=== PATIENT | female | born 1965 | race Caucasian/White ===

== ENCOUNTER 2018-09-12 07:03 | Inpatient (IN) ==
--- NOTE | 2018-08-28 14:26 | PAT Medication Instructions ---
Medication Instructions Date of Service August 28, 2018 Home Medications albuterol sulfate [Ventolin HFA] 2 puff INHALATION Q6H PRN aripiprazole [Abilify] 5 mg PO QAM bupropion HCl [Wellbutrin SR] 400 mg PO QAM calcium carbonate [Tums] 200 mg PO DAILY PRN dextroamphetamine-amphetamine 20 mg PO BID multivitamin 1 tab PO QAM nicotine 1 patch TRANSDERMAL DAILY venlafaxine [Effexor XR] 150 mg PO QAM metoprolol tartrate 25 mg PO BID Continue as directed nicotine 1 patch TRANSDERMAL DAILY DO NOT take the morning of surgery calcium carbonate [Tums] 200 mg PO DAILY PRN dextroamphetamine-amphetamine 20 mg PO BID multivitamin 1 tab PO QAM Take morning of surgery With a small sip of water, OTHERWISE NOTHING TO EAT OR DRINK AFTER MIDNIGHT: albuterol sulfate [Ventolin HFA] 2 puff INHALATION Q6H PRN (use if needed; please bring with you to hospital day of surgery if possible) aripiprazole [Abilify] 5 mg PO QAM bupropion HCl [Wellbutrin SR] 400 mg PO QAM venlafaxine [Effexor XR] 150 mg PO QAM metoprolol tartrate 25 mg PO BID Take evening before surgery albuterol sulfate [Ventolin HFA] 2 puff INHALATION Q6H PRN (if needed) calcium carbonate [Tums] 200 mg PO DAILY PRN (if needed) dextroamphetamine-amphetamine 20 mg PO BID metoprolol tartrate 25 mg PO BID Other Notes If you have any questions please call us at [phone] or [phone] or [phone] or [phone]
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
[2018-08-31 13:06] LABS: Basophils # (auto) 0.07 K/uL (0-0.2); Basophils % (auto) 1.1 %; Eosinophils # (auto) 0.29 K/uL (0-0.5); Eosinophils % (auto) 4.6 %; Hematocrit (blood only) 42.9 % (37-47); Hemoglobin 13.8 g/dL (12.0-16.0); Immature Granulocytes # (auto) 0.02 K/uL (0.00-0.02); Immature Granulocytes % (auto) 0.3 %; Lymphocytes # (auto) 1.76 K/uL (1.2-3.4); Mean Corpuscular Hgb Conc 32.2 g/dL (32-36); Mean Corpuscular Volume 101.9 fL (80-100); Mean Platelet Volume 8.5 fL (7.4-10.4); Monocytes # (auto) 0.77 K/uL (0.11-0.59); Monocytes % (auto) 12.3 %; Neutrophils # (auto) 3.37 K/uL (1.4-6.5); Neutrophils % (auto) 53.7 %; Platelet Count 355 K/uL (130-400); RDW Coefficient of Variation 21.4 % (11.5-14.5); RDW Standard Deviation 79.8 fL (36.4-46.3); Red Blood Count 4.21 M/uL (4.2-5.4); White Blood Count 6.28 K/uL (4.8-10.8)
[2018-08-31 13:10] LABS: Appearance Urine Clear (Clear); Bacteria Urine Automated Negative (Negative); Bilirubin Urine Negative (Negative); Color Urine Dark Yellow; Epithelial Cell Urine Auto >30 /lpf (0-5); Glucose Urine UA Negative (Negative); Ketones Urine Trace (Negative); Leukocyte Esterase Urine Negative (Negative); Nitrite Urine Negative (Negative); Protein Urine Trace (Negative); Specific Gravity Urine 1.032 (1.000-1.030); Urobilinogen Urine Negative (Negative)
[2018-08-31 13:12] LABS: Partial Thromboplastin Time 25.7 Seconds (21.0-31.0); Prothrombin Time 10.1 Seconds (9.0-12.0)
[2018-08-31 13:39] LABS: BUN Creatinine Ratio 15.3 (10-20); Calcium 9.7 mg/dl (8.5-10.1); Creatinine Clr Calc Pharmacy 80.5 ml/min; Est GFR (African American) 114.4; Est GFR (Non-African American) 98.7; Potassium 5.4 mmol/L (3.5-5.1)
[2018-08-31 13:46] LABS: Anisocytosis Present; Target Cells 1+
[2018-08-31 13:47] LABS: Estimated Average Glucose 80 mg/dl
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
[~2018-09-12 07:03] MED LIST: ACETAMINOPHEN 500 MG TAB PO SCH; BUPIVACAINE 0.5 % 5 MG/1 ML PF 10ML VIAL ONE; CEFAZOLIN 2000MG 2,000 MG/15 ML SYR IV SCH; CeleBREX 200 MG CAP PO SCH; FAMOTIDINE 20 MG TAB PO SCH; METOCLOPRAMIDE HCL 10 MG TABLET PO SCH; ROPIVACAINE 0.5% HCL/PF 150 MG, BUPIVACAINE 0.5% MPF 30 ML, EPINEPHrine 30MG/30ML (OR U... INFIL SCH; TRANEXAMIC ACID 1,000 MG **IV Intra-op IV SCH; TRANEXAMIC ACID 1,000 MG **IV Pre-op IV SCH; dexAMETHasone 4 MG TAB PO SCH
[2018-09-12] MEDS: LR 500ML BOLUS, THEN 15ML/HR IV SCH ×4 (08:05→16:35)
[2018-09-12] MEDS ORDERED: LIDOCAINE HCL 2% 2 ML VIAL/AMP(20MG/ML) INFIL ONE (09:04)
[2018-09-12] MEDS ORDERED: MIDAZOLAM HCL 1 MG/ML 2ML VIAL ONE ×2 (09:04→11:46)
[2018-09-12] MEDS ORDERED: PROPOFOL IV EMULSION 10 MG/ML 20 ML VIAL IV ONE (09:04)
[2018-09-12] MEDS ORDERED: fentaNYL citrate 100 MCG/2 ML VIAL ONE ×2 (09:04→12:16)
[2018-09-12] MEDS ORDERED: KETAMINE HCL INJ 50 MG/ML 10 ML VIAL ONE (09:12)
[2018-09-12] MEDS ORDERED: PHENYLEPHRINE 100MCG/ML 5ML SYR IV PRN (09:51)
[2018-09-12] MEDS ORDERED: KETOROLAC 30 MG/ML VIAL IV PRN (09:51)
[2018-09-12] MEDS ORDERED: HYDROmorphone INJ 1 MG/ML SYRINGE IV PRN (09:51)
[2018-09-12] MEDS ORDERED: ONDANSETRON INJ 2 MG/ML 2 ML VIAL IV PRN ×2 (09:51→14:27)
[2018-09-12] MEDS ORDERED: ePHEDrine sulfate 50 MG/ML AMP IV PRN (09:51)
[2018-09-12] MEDS ORDERED: ATROPINE SULFATE 0.1 MG/ML 10ML SYR IV PRN (09:51)
[2018-09-12] MEDS ORDERED: BACITRACIN INJ 50,000 UNIT VIAL ONE (10:06)
[2018-09-12] MEDS ORDERED: ORTHO JOINT ANESTHETIC ONE (10:06)
[2018-09-12] MEDS ORDERED: POVIDONE-IODINE OP SOLN 30 ML BTL ONE (10:06)
--- NOTE | 2018-09-12 10:13 | History & Physical Bridge Note ---
Date of Service September 12, 2018 History & Physical Bridge Note I have examined the patient, reviewed the History & Physical and in the interval since the performance of the History & Physical I have noted the following changes of clinical significance: no changes noted
[2018-09-12] MEDS ORDERED: PHENYLEPHRINE 100MCG/ML 5ML SYR ONE (12:07)
--- NOTE | 2018-09-12 12:45 | Post Operative Brief Note ---
Immediate Post Op Note v1 Date of Surgery September 12, 2018 Pre & Post Diagnosis Operation Date: 09/12/18 09:05 Pre-Op Diagnosis: Degenerative joint disease of left hip Post-Op Diagnosis: Degenerative joint disease of left hip Procedure Operation Date: 09/12/18 09:05 Actual Procedures p Left Anterior Total Hip Arthroplasty(Left) - Nahum Chauhan DO Surgeon Nahum Chauhan DO Medical Stenographer Beto Buenrostro Estimated Blood Loss 120 Findings Consistent with Post-Op Diagnosis Fluids 1300 Specimens femoral head Anesthesia Type Spinal Complications none Disposition Disposition: Recovery Room Overlapping Procedure I was present for: the critical portions of procedure. I was immediately available: during the entire case. Back up surgeon: was not required during procedure.
--- NOTE | 2018-09-12 13:09 | Fluoroscopy Report ---
FL hip LT 1V CLINICAL HISTORY: 52 years-old Female presenting with LT ANTERIOR HIP. TECHNIQUE: 2 fluoroscopic image(s) recorded as part of an intraoperative procedure. COMPARISON: 05/29/2018. FINDINGS/IMPRESSION: There has been interval total left hip arthroplasty. No gross malalignment. Please see surgical report for further details. Fluoroscopy dosage (mGy): 6.65. Fluoroscopy time: 65.2 seconds. Number or time of fluoroscopic spot images: 0. Electronically signed by: Eric Argueta M.D. 09/12/2018 1:08 PM
[2018-09-12] MEDS ORDERED: METOPROLOL TARTRATE 1 MG/ML VIAL IV STA (13:27)
[2018-09-12] MEDS ORDERED: METOPROLOL TARTRATE 1 MG/ML VIAL IV ONE (13:31)
--- NOTE | 2018-09-12 13:44 | XRay Report ---
XR hip 1V LT w pelvis CLINICAL HISTORY: 52 years-old Female presenting with IN PACU - A/P PELVIS and LATERAL HIP - left. TECHNIQUE: Single frontal view the pelvis and crosstable lateral view of the left hip were obtained. COMPARISON: 05/29/2018. FINDINGS: There has been interval total left hip arthroplasty. Expected soft tissue emphysema. No periprostheti c fracture. No malalignment. Bony pelvis intact. No acute fracture or malalignment. No advanced degen erative change. IMPRESSION: Expected postsurgical appearance status post total left hip arthroplasty. Electronically signed by: Eric Argueta M.D. 09/12/2018 1:43 PM
--- NOTE | 2018-09-12 14:08 | Anesthesiology Progress Note ---
Date of Service September 12, 2018 Anesthesia Post Procedure Vital Signs Vital Signs: Temp Pulse Pulse Pulse Resp BP BP 09/12/18 14:00 36.7 C 105 H 21 110/76 09/12/18 13:50 104 H 14 106/75 09/12/18 13:40 105 H 14 109/79 09/12/18 13:34 129 H 111/80 09/12/18 13:30 125 H 22 111/80 09/12/18 13:20 125 H 18 110/81 09/12/18 13:10 36.0 C L 133 H 18 105/80 09/12/18 08:16 37.2 C 116 H 20 124/92 Pulse Ox 09/12/18 14:00 100 09/12/18 13:50 99 09/12/18 13:40 99 09/12/18 13:34 09/12/18 13:30 98 09/12/18 13:20 98 09/12/18 13:10 95 09/12/18 08:16 98 Pain Intensity Left Hip: Pain Intensity: 0 Notes Mental Status: alert / awake / arousable Patient Amnestic to Procedure: Yes Nausea / Vomiting: adequately controlled Pain: adequately controlled Airway Patency, RR, SpO2: stable & adequate BP & HR: stable & adequate Hydration State: stable & adequate Anesthetic Complications: no major complications apparent
[2018-09-12] MEDS ORDERED: METOCLOPRAMIDE HCL INJ 5 MG/ML 2 ML VIAL IV PRN (14:27)
[2018-09-12] MEDS ORDERED: ALBUTEROL HFA 8 GM INHALER INH PRN (14:27)
[2018-09-12] MEDS ORDERED: NALOXONE HCL 0.4 MG/1 ML VIAL/CARP IV PRN (14:27)
[2018-09-12] MEDS ORDERED: BISACODYL 10 MG SUPP PR PRN (14:27)
[2018-09-12] MEDS ORDERED: MAGNESIUM HYDROXIDE SUSP 30 ML UDC PO PRN (14:27)
[2018-09-12] MEDS ORDERED: HYDROmorphone INJ 0.5 MG/0.5 ML SYR IV PRN (14:27)
[2018-09-12] MEDS ORDERED: SODIUM CHLORIDE 0.9% 1000ML 1,000 ML IV SCH (15:00)
--- NOTE | 2018-09-12 16:19 | Orthopedic Progress Note ---
Date of Service September 12, 2018 Assessment & Plan (1) Degenerative joint disease (DJD) of hip: Status post left anterior total hip arthroplasty -Ancef x24 -DVT prophylaxis ASA twice daily -Weight-bear as tolerated left lower extremity -Physical therapy and occupational therapy -A.m. labs -Postoperative x-ray demonstrates a well aligned well fixed orthopedic prosthesis without evidence of fracture dislocation -DC planning Subjective Post Operative Progress Note Patient seen sitting up in bed, comfortable, denies complaints, pain well controlled, no acute issues. Physical Exam 2 Vital Signs (Past 24 Hours): Last Vital Signs Temp 36.5 C 09/12/18 15:29 Pulse 106 H 09/12/18 15:29 Resp 18 09/12/18 15:29 BP 145/96 H 09/12/18 15:29 Pulse Ox 100 09/12/18 15:29 Physical Exam: LLE NVSI +EHL/FHL/TA/GS SILT grossly, +2 DP pulse, compartments soft NT, dressing cdi. Constitutional: WD/WN, vitals as above Eyes: PERRL, conjunctivae normal, anicteric sclerae ENMT: external ear and nose normal, oropharynx normal Neck: trachea midline, no thyromegaly Respiratory: normal respiratory effort, lungs clear to auscultation Cardiovascular: RRR, no murmur, no edema Gastrointestinal (Abdomen): normal bowel sounds, soft, nontender, no hepatosplenomegaly Musculoskeletal: no cyanosis or clubbing, extremities motor strength 5/5 Skin: no rashes, warm and dry + scar Neurologic: patellar DTR's 2+ bilat, sensation intact Psychiatric: A+Ox3, euthymic affect Lymphatic: no cervical or axillary lymphadenopathy
[2018-09-12] MEDS: ACETAMINOPHEN 500 MG TAB PO SCH (16:22)
[2018-09-12] MEDS: CEFAZOLIN 1000MG 1,000 MG/7.5 ML SYR IV SCH (18:26)
[2018-09-12] MEDS: KETOROLAC 30 MG/ML VIAL IV SCH (18:26)
[2018-09-12] MEDS: METOPROLOL TARTRATE 25 MG TAB PO SCH (20:18)
[2018-09-12] MEDS: DOCUSATE SODIUM 100 MG CAP PO SCH (20:18)
[2018-09-12] MEDS: OXYCODONE HCL IR 5 MG TAB (IMMEDIATE RELEASE) PO PRN (20:22)
[2018-09-12] MEDS ORDERED: AMPHETAMINE ASP/SULF/DEXTRAMPH 20 MG TAB PO SCH (21:00)
[2018-09-12] MEDS ORDERED: SENNA 8.6 MG TAB PO SCH (21:00)
[2018-09-13] MEDS: ACETAMINOPHEN 500 MG TAB PO SCH ×2 (00:34→08:07)
[2018-09-13] MEDS: KETOROLAC 30 MG/ML VIAL IV SCH ×3 (00:34→11:12)
[2018-09-13] MEDS: CEFAZOLIN 1000MG 1,000 MG/7.5 ML SYR IV SCH (01:59)
[2018-09-13] MEDS: OXYCODONE HCL IR 5 MG TAB (IMMEDIATE RELEASE) PO PRN (03:26)
[2018-09-13 07:02] LABS: Hematocrit (blood only) 26.9 % (37-47); Immature Granulocytes # (auto) 0.02 K/uL (0.00-0.02); Immature Granulocytes % (auto) 0.2 %; Lymphocytes # (auto) 0.74 K/uL (1.2-3.4); Lymphocytes % (auto) 6.6 %; Mean Corpuscular Hgb Conc 33.5 g/dL (32-36); Mean Corpuscular Volume 103.5 fL (80-100); Mean Platelet Volume 8.4 fL (7.4-10.4); Monocytes # (auto) 0.86 K/uL (0.11-0.59); Monocytes % (auto) 7.7 %; Neutrophils # (auto) 9.61 K/uL (1.4-6.5); Neutrophils % (auto) 85.5 %; Platelet Count 176 K/uL (130-400); RDW Coefficient of Variation 17.6 % (11.5-14.5); RDW Standard Deviation 66.6 fL (36.4-46.3); White Blood Count 11.23 K/uL (4.8-10.8)
[2018-09-13] MEDS: DOCUSATE SODIUM 100 MG CAP PO SCH (07:07)
[2018-09-13] MEDS: METOPROLOL TARTRATE 25 MG TAB PO SCH (07:07)
[2018-09-13 07:29] LABS: BUN Creatinine Ratio 18.9 (10-20); Calcium 8.9 mg/dl (8.5-10.1); Creatinine Clr Calc Pharmacy 85.4 ml/min; Est GFR (African American) 116.7; Est GFR (Non-African American) 100.7; Potassium 4.3 mmol/L (3.5-5.1)
--- NOTE | 2018-09-13 07:40 | Orthopedic Progress Note ---
Date of Service September 13, 2018 Assessment & Plan (1) Degenerative joint disease (DJD) of hip: Status post left anterior total hip arthroplasty POD#1 -Ancef x24 -DVT prophylaxis ASA twice daily -Weight-bear as tolerated left lower extremity -Physical therapy and occupational therapy -A.m. labs - hgb 9.0 -Postoperative x-ray demonstrates a well aligned well fixed orthopedic prosthesis without evidence of fracture dislocation -DC planning - home with home health Subjective Post Operative Progress Note Patient seen sitting up in bed, comfortable, denies complaints, pain well controlled, no acute issues. The patient had some discomfort overnight, improved now. Physical Exam 2 Vital Signs (Past 24 Hours): Last Vital Signs Temp 36.7 C 09/13/18 07:20 Pulse 79 09/13/18 07:20 Resp 19 09/13/18 07:20 BP 137/85 09/13/18 07:20 Pulse Ox 95 09/13/18 07:20 Physical Exam: LLE NVSI +EHL/FHL/TA/GS SILT grossly, +2 DP pulse, compartments soft NT, dressing cdi.
[2018-09-13] MEDS: AMPHETAMINE ASP/SULF/DEXTRAMPH 20 MG TAB PO SCH ×2 (08:08→11:12)
[2018-09-13] MEDS ORDERED: MULTIVITAMIN TAB PO SCH (09:00)
[2018-09-13] MEDS ORDERED: ASPIRIN 325 MG ECTAB PO SCH (09:00)
[2018-09-13] MEDS ORDERED: BuPROPion SR 100 MG TABCR PO SCH (09:00)
[2018-09-13] MEDS ORDERED: NICOTINE 14 MG/24 HR PATCH TD SCH (09:00)
[2018-09-13] MEDS ORDERED: ARIPiprazole 5 MG TAB PO SCH (09:00)
[2018-09-13] MEDS ORDERED: CeleBREX 200 MG CAP PO SCH (21:00)
--- NOTE | 2018-09-13 23:28 | Discharge Summary ---
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 The patient underwent removal of hardware on 05/29/2018. The patient has failed outpatient conservative treatments to this point which included NSAIDS, IA corticosteroid hip injection , HEP/PT. The patient's pain and limited function have progressed to the point where they severely hinder their activities of daily living and they no longer tolerate exercise programs. They are requesting to proceed with total hip replacement surgery. Principal Diagnosis Left anterior total hip replacement Discharge Exam LLE NVSI +EHL/FHL/TA/GS SILT grossly, +2 DP pulse, compartments soft NT, dressing cdi. Constitutional WD/WN, vitals as above Eyes PERRL, conjunctivae normal, anicteric sclerae ENMT external ear and nose normal, oropharynx normal Neck trachea midline, no thyromegaly Respiratory normal respiratory effort, lungs clear to auscultation Cardiovascular RRR, no murmur, no edema Gastrointestinal (Abdomen) normal bowel sounds, soft, nontender, no hepatosplenomegaly Musculoskeletal no cyanosis or clubbing, extremities motor strength 5/5 Skin no rashes, warm and dry + scar Neurologic patellar DTR's 2+ bilat, sensation intact Psychiatric A+Ox3, euthymic affect Lymphatic no cervical or axillary lymphadenopathy Discharge Data Allergies Allergy/AdvReac Type Severity Reaction Status Date / Time No Known Allergies Allergy Verified 09/12/18 08:28 Consultations 09/13/18 08:00 Consult Case Management - Discharge Planning Routine Procedures Performed Operation Date: 09/12/18 09:05 Actual Procedures p Left Anterior Total Hip Arthroplasty(Left) - Nahum Chauhan DO Ordered Studies 09/12/18 09:00 FL fluoroscopy <1hr Routine FL hip LT 1V Routine Hospital Course (1) Degenerative joint disease (DJD) of hip: The patient is a 52 -year-old female who presents with severe post traumatic DJD and AVN secondary to previous hip fracture, ORIF, femoral head collapse and screw cut out. Underwent removal of hardware however had persistence of pain/symptoms. The patient failed outpatient conservative treatments including NSAIDs, activity modifications, injections and home walking /exercise program/PT. The patient's symptoms have progressed to the point where it has been difficult to perform even normal activities of daily living. I indicated the patient for a left anterior total hip arthroplasty, the risks, benefits and complications of the procedure include but not limited to infection , bleeding, damage to bone, nerves, vessels, surrounding soft tissue, may develop blood clots, loss of function, leg length discrepancy, dislocation, failure of the components, loosening of the components, the need for additional surgery and . The patient wished to proceed with surgery at this time and informed consent was obtained. Hospital Course: On 09/12/18 the patient was taken to the operating room, adequate anesthesia administered and underwent a left anterior total hip arthroplasty. The patient tolerated the procedure well and was taken to the PACU in stable condition. Post-operatively the patient was started on a DVT ppx medicaiton and given appropriate IV antibiotics. Consults were placed to physical therapy, occupational therapy and case management. On POD#1, the patient did well overnight and their pain was well controlled. Labs were drawn and the Hgb was 9.0. The patient progressed well with PT. Dressings were clean, dry and intact. The patients hospital stay was relatively uneventful and they were deemed stable by the orthopedic team and consultants to be discharged home with home health on 09/13/18. Discharge Instructions: Upon discharge the patient may weight bear as tolerates through their operative extremity. They were instructed to keep the incision clean and dry at all times. The patient may shower but should not submerge the incision, avoid bathing, pools and hot tubes. The patient was given a script for pain medication and should take as instructed. The patient was given a script for DVT ppx ASA 325mg BID and should take as directed. The patient was instructed to not drive or travel for long distances until cleared to do so. If the patient develops any symptoms of fevers, chills, nausea, vomiting, increased redness, swelling, pain or drainage from the surgical site, they should notify the office and/or proceed to the nearest emergency room. The patient should follow up in 10-14 days after surgery for their routine post-operative follow- up appointment and should call the office to confirm the date and time. Status post left anterior total hip arthroplasty POD#1 -Ancef x24 -DVT prophylaxis ASA twice daily -Weight-bear as tolerated left lower extremity -Physical therapy and occupational therapy -A.m. labs - hgb 9.0 -Postoperative x-ray demonstrates a well aligned well fixed orthopedic prosthesis without evidence of fracture dislocation -DC planning - home with home health Total Time Total Time Spent Total Time Spent (In Minutes): >60 minutes Total Time Includes: Examination of the Patient, Discharge Planning, Medication Reconciliation and Communication With Other Providers Discharge Plan Discharge Items Patient Disposition: Home - Home Health Services Reason For Visit: Left Hip Osteoarthritis Discharge Diagnosis: Left anterior total hip replacement Discharge Goals: Decrease discomfort, Improve disease control, Improve function and Increase independence Activity: Per 'Additional Instructions' section Lifting: Wait until after follow-up appointment Bathing Comment: No bathing, hot tubs or pools Sexual Activity: Wait until after follow-up appointment Exercise/Sports: Wait until after follow-up appointment Driving/Machine Use Comment: No driving till cleared by your surgeon Weightbearing: Left non-weightbearing and Left weightbearing Non-emergency contact: Primary Care Provider and Surgeon Call non-emergency contact if: you have any medication questions, your symptoms worsen, your pain is not controlled, your pain is worsening, your pain is unusual for you, your pain is concerning for you, you have a fever, your temperature is above 101, your wound has increased redness, your wound has increased drainage and your wound pain has increased Follow-up/Referrals: Edi Hodge DO [Primary Care Provider] - Diet: Regular Addtl Provider Instructions: ACTIVITY RECOMMENDATIONS: SELF CARE INSTRUCTIONS AFTER TOTAL HIP REPLACEMENT : Direct Anterior Approach Until the incision and soft tissues around your hip have healed, there is a possibility that the hip prosthesis could dislocate. A. Hip flexion ( Up & Down out of chair or steps ) may be difficult. This is normal. B. Numbness in front of the thigh is also normal for a few weeks. C. Use hand rails when walking on stairs. D. Wear low heeled shoes with non-slip soles. E. Be sure that your floors are free of things that could trip you - throw rugs , electrical cords, small objects. Avoid wet and waxed floors, especially with crutches and canes. F. Try to walk several times a day with rest periods between. G. Continue with all the exercises taught to you in the hospital. Again, make walking a part of your daily routine. SPECIAL CARE INSTRUCTIONS: VERY IMPORTANT TO READ AND REVIEW A. You may still be at risk for phlebitis and blood clots. 1. Wear surgical stockings (CHIRAG hose) for 2 weeks after surgery to improve circulation and reduce swelling. 2. Take Aspirin 325mg twice daily for 4 weeks or as directed by your doctor. This is your blood thinner. 3. High risk patients may be prescribed a stronger blood thinner if necessary. 4. If you are on Coumadin normally, your family doctor/customer service representative should monitor your blood work. Expect a phone call the day of or the day after bloodwork is drawn to adjust your dosage. B. You must take antibiotics before having dental work, bladder, bowel and other surgery. Your doctor will provide you with a permanent card to carry describing precautions. C. Call [facility] if you have a fever, redness or swelling around the incision, cloudy drainage from incision, or sudden increase in pain in your hip, not relieved by your regular pain medication. D. Please call the office at if you have any concerns or questions about your operation or recovery. * YOU MAY SHOWER, NO TUB BATHS UNTIL CLEARED BY YOUR DOCTOR. - Keep an extra close eye on the top portion of your incision. Be sure to keep clean & dry. * WEAR CHIRAG HOSE 20 HOURS PER DAY FOR 2 WEEKS. * YOU MAY PROGRESS FROM A WALKER, TO A CANE, TO INDEPENDENT AT YOUR OWN PACE. * MOST PATIENTS WILL HAVE HOME NURSING FOR THERAPY. IF YOU DECIDE TO DO OUTPATIENT PHYSICAL THERAPY, PLEASE SCHEDULE THIS 3 TIMES PER WEEK. * DERMABOND Prineo- This is a mesh tape dressing that is covered with glue. It should remain in place until the incision is properly healed, usually 10-14 days. This dressing is designed to naturally slough off. You may trim the excess mesh tape as it peels off. Incision may be briefly wet in a shower. Dry immediately by blotting with a clean, dry towel. Do not bath or swim until instructed by your doctor. Do not scratch, rub, or pick at the dressing. Do not apply any topical ointments or lotions until dressing is completely removed and/or instructed by your doctor. There may be a small piece of suture material at one end of your incision. Do not pull or trim this. If it is bothersome or catching on clothing, you may cover it with a band-aid. *Prevena incisional vac is a special dressing covering your incision. This dressing provides a sterile dry environment while you are healing. The dressing is to be left in place for 7 days post-operatively. Your home nurse or surgeon will remove. If you develop any redness or blisters or have any questions notify your surgeon immediately. FOLLOW UP VISIT: If appointment is not already scheduled: Please call [facility] to make a follow-up appointment for 2 weeks after your surgery at . Prescriptions: New acetaminophen [Pain Reliever] 500 mg Tablet 1,000 mg PO Q8H PRN (Reason: pain) Qty: 90 RF: 0 aspirin 325 mg Tablet,Delayed Release (Dr/Ec) 325 mg PO BID Qty: 28 RF: 0 celecoxib [Celebrex] 200 mg Capsule 200 mg PO BID PRN (Reason: pain) 14 Days Qty: 28 RF: 0 sennosides [Senokot] 8.6 mg Tablet 17.2 mg PO HS PRN (Reason: constipation) 14 Days Qty: 28 RF: 0 oxycodone 5 mg Tablet 5 mg PO Q6H MDD 6 tabs PRN (Reason: pain) Qty: 30 RF: 0 Continue multivitamin Tablet 1 tab PO QAM RF: 0 venlafaxine [Effexor XR] 150 mg Capsule,Extended Release 24hr 150 mg PO QAM RF: 0 dextroamphetamine-amphetamine [Adderall] 20 mg Tablet 20 mg PO BID RF: 0 calcium carbonate [Tums] 200 mg calcium (500 mg) Tablet,Chewable 200 mg PO DAILY PRN (Reason: Heartburn) RF: 0 bupropion HCl [Wellbutrin SR] 200 mg Tablet Sustained-Release 12 Hr 400 mg PO QAM RF: 0 aripiprazole [Abilify] 5 mg Tablet 5 mg PO QAM RF: 0 nicotine 14 mg/24 hr Patch 24 Hour 1 patch TRANSDERMAL DAILY RF: 0 albuterol sulfate [Ventolin HFA] 90 mcg/actuation Hfa Aerosol Inhaler 2 puff INHALATION Q6H PRN (Reason: Shortness Of Breath) RF: 0 metoprolol tartrate 25 mg Tablet 25 mg PO BID RF: 0 Stand-Alone Forms: Pending Sale To [facility], Opioid Pain Management Discharge Orders: Discharge Order (Routine); Ordered 09/13/18 Ordered By: Yaron Akers Admission Data Admit Date/Time: 09/12/18 13:16 Attending Provider: Nahum Chauhan Admit Provider: Nahum Chauhan Primary Care Provider: Edi Hodge Service: Surgical Services Other Interventions: Discharge Summary Assessment (RN) Last Done: 09/13/18 13:09 DC Date/Time DO NOT enter until pt leaves facility: 09/13/18 13:34
--- NOTE | 2018-09-14 08:50 | Operative Report ---
Post Operative Report Pre & Post Diagnosis Operation Date: 09/12/18 09:05 Pre-Op Diagnosis: Degenerative joint disease of left hip Post-Op Diagnosis: Degenerative joint disease of left hip Procedure Operation Date: 09/12/18 09:05 Actual Procedures p Left Anterior Total Hip Arthroplasty(Left) - Nahum Chauhan DO Surgeon Nahum Chauhan DO Test Manager Beto Buenrostro Estimated Blood Loss 120 Findings Consistent with Post-Op Diagnosis Specimens femoral head Anesthesia Type Spinal Complications none Disposition Disposition: Recovery Room Indications The patient is a 52-year-old female who presents with severe progressive left hip DJD, AVN with femoral head collapse from prior hip fracture, ORIF who has failed outpatient conservative treatments and removal of hardware. I indicated the patient for a anterior total hip replacement and the risks and benefits were explained in detail which include but not limited to infection, bleeding, blood clot, damage to surrounding bone, nerves, vessels, soft tissue, hip dislocation, failure of the prosthesis, leg length discrepancy, need for additional surgery and . The patient agreed to proceed with replacement of the hip and informed consent was obtained. Appropriate clearances were obtained. Description of Procedure COMPONENTS USED: [employer] hip system: Acetabulum size 48, liner 36x54, acetabular screw 25mm. Andra Informativeir hip system: Femur size 6 standard offset, 32 + 0 femoral head DESCRIPTION OF PROCEDURE: Following satisfactory spinal anesthesia, the patient was placed supine on the OR table. The right leg was placed in the well leg miller and the left leg in the traction device. The left leg was prepared with ChloraPrep and draped sterilely. Following a surgical time-out, an anterior approach in the interval between the sartorius and tensor muscles was completed. Circumflex femoral vessels were identified, tied and ligated. The anterior capsular fat pad was removed and the capsulotomy was performed revealing the arthritic femoral neck and head. A femoral neck cut was made with reciprocating saw and the bone fragments removed. The acetabular self- retraining retractor was placed. Acetabular reaming was completed under fluoroscopic guidance, a 48 shell was impacted into an anatomic position and secured with a dome screw. Local anesthetic was placed and following irrigation , the polyethylene liner was placed. The femur was placed into position of external rotation, extension and adduction. Femoral canal was prepared with sequential broaching with [employer] hip system however once the largest broach was seated, the stem was still rotationally unstable, the decision was made to use the Andra Avenir hip system. Sequential broaching was then performed up to a size 6 std offset. The stem seated well at the level of the femoral neck cut, demonstrated good fit and fill of the canal and was found to be rotationally stable. Trial reduction with a +0 neck length head showed good soft tissue tension, leg lengths restored, and good fit and fill of the proximal canal using fluoroscopic landmarks. The hip was dislocated. The trial component was removed. The final implant was placed. The hip was irrigated with sterile saline soluation and reduced. A Betadine soak was performed. After 3 minutes, the hip was once more irrigated with copious sterile saline solution with bacitracin. Rtu- incisional soft tissue was injected utilizing [facility] which includes a combination of Ropivicaine 0.5% 150mg, Bupivicaine 0.5%/Epinephrine 1 :200,000 30ml, Toradol 30mg, Dexamethasone 4mg, Ketamine 10mg, Clonidine 100mcg and NSS 30ml solution. The capsule was then closed with 1-0 Vicryl interrupted figure of eight sutures. The fascia was closed with a running suture of #1 Vicryl, the subcutaneous tissues with 2-0 Vicryl and the skin with a running subcuticular stitch of 3-0 V-Loc. Dermabond prineo and a dry dressing, Prevena incisional vac was applied. The patient tolerated the procedure well and was transported to PACU in stable condition. Due to the complex nature of the procedure, the entire surgery was performed with the operational assistance of Beto Buenrostro PA-C. The assurance assistant, under direct supervision, was involved in the actual performance of all aspects of the surgical procedure including patient positioning, hemostasis, tissue retraction, instrument management and wound closure. I attest to the content of the Intraoperative Record and any orders documented therein. Any exceptions are noted below.
== END 2018-09-13 13:34 | disposition home health service (06) | DRG 470 ==
LOC: ASU 07:03 → 3E 13:16
DX: Z87.81 Personal history of (healed) traumatic fracture; F32.9 Major depressive disorder, single episode, unspecified; Z83.3 Family history of diabetes mellitus; Z79.899 Other long term (current) drug therapy; I10 Essential (primary) hypertension; M16.52 Unilateral post-traumatic osteoarthritis, left hip; F17.210 Nicotine dependence, cigarettes, uncomplicated; M87.852 Other osteonecrosis, left femur; F98.8 Other specified behavioral and emotional disorders with onset usually occurring in childhood and adolescence; J44.9 Chronic obstructive pulmonary disease, unspecified

== ENCOUNTER 2018-09-21 16:34 | Inpatient (IN) ==
[2018-09-21] MEDS ORDERED: ALUMINUM/MAGNESIUM SUSP 30 ML UDC PO PRN (20:02)
[2018-09-21] MEDS ORDERED: POLYETHYLENE (MIRALAX) 17 GM PACK PO PRN (20:02)
[2018-09-21] MEDS ORDERED: MAGNESIUM HYDROXIDE SUSP 30 ML UDC PO PRN (20:02)
[2018-09-21] MEDS ORDERED: VANCOMYCIN CONSULT ACTIVE PRN (20:27)
--- NOTE | 2018-09-21 20:40 | History & Physical Report ---
Date of Service September 21, 2018 Assessment & Plan (1) Sepsis: 52-year-old female with past medical history of Depression anxiety, COPD, Insomnia, here as a direct admit from outside hospital due to elevated lactate and concern for sepsis status post left total hip surgery on 09/12/2018. Patient had a total revision of the left hip on 09/12/2018, was sent home on 2 aspirin daily for 4 weeks and has been compliant with her medications. She had home health and PT OT visiting her and she was doing well until this morning when she felt more winded and dizzy doing very simple exercises. She does not complain of calf pain or leg swelling. She does endorse some chest pressure intermittently but is currently not feeling this. She states she presented to her PCP a few days after her surgery and was told she had 25,000 bacteria growing in her urine and apparently was given Bactrim per report from the outside hospital. Outside hospital course: When she presented to the emergency room Patient appeared nontoxic but was found to be tachycardic. She was not febrile, heart rate was 108 not requiring supplemental oxygen. Labs revealed a normal white count, hemoglobin of 8.3, chest x-ray was unremarkable, first troponin negative , CT scan of the chest showed no pulmonary emboli. Lactic acid was remarkable 7.1. CMP was unremarkable. Creatinine 1.01. AST ALT 66/36. Magnesium 1.8. Urinalysis was done however I do not have that result. They started her on IV fluid boluses cefepime and vancomycin and was then decided to be transferred here for customs compliance specialist evaluation. Patient is in sinus tach on telemetry rate in the low 100s, Not requiring supplemental oxygen here. Sepsis in setting of 9 days s/p left hip arthroplasty, with +UA in outpatient setting Plan: -repeat labs, including CBC, CMP, Trop, lactate -received adequate fluid boluses in outside hospital, continue maintenance fluids -ECG daily -Vancomycin, Ceftriaxone for complicated UTI -nonurgent consult to orthopedics, Dr. Chauhan -pain mgmt -monitor on med/surg with Tele Anemia -per outside report hgb was 8. Is 7 here -dyspnea and chest pressure could be explained by acute blood loss plan: -check FOBT -type/cross, consent, transfuse 1 unit here, recheck H&H q6h Chest pressure -sinus tachy, no ST changes -CTA at outside hosp neg for PE -trend trop (initial at outside hosp negative) -likely multifactorial, will r/o cardiac cause Alcohol use -pt states she drinks 2 glasses of wine per night -will trial small one time dose of ativan, may need monitoring for withdrawal FEN/GI: regular diet, NSS @80 ml/hr DVT ppx: lovenox q12h CODE STATUS: FULL DISPO: med/surg with tele Other ongoing medical problems: Depression/anxiety: -continue home meds including bupropion and venlafaxine -unsure if abilify is a home medication, need to confirm with pt ADHD -hold adderal COPD -continue home inhalers (2) Depression: (3) Anxiety: (4) Attention deficit disorder: (5) Anemia: (6) Elevated lactic acid level: (7) History of total left hip arthroplasty: (8) Incidental lung nodule, > 3mm and < 8mm: 09/21/18 CTA -- Please note her chest CT does note a right upper lobe nodule that is newly identified 5.2 mm in the upper lobe of the right lung, a six- month CT follow-up should be considered. History of Present Illness Primary Care Provider: Edi Hodge DO 52-year-old female with past medical history of Depression anxiety, COPD, Insomnia, here as a direct admit from outside hospital due to elevated lactate and concern for sepsis status post left total hip surgery on 09/12/2018. Patient had a total revision of the left hip on 09/12/2018, was sent home on 2 aspirin daily for 4 weeks and has been compliant with her medications. She had home health and PT OT visiting her and she was doing well until this morning when she felt more winded and dizzy doing very simple exercises. She does not complain of calf pain or leg swelling. She does endorse some chest pressure intermittently but is currently not feeling this. She states she presented to her PCP a few days after her surgery and was told she had 25,000 bacteria growing in her urine and apparently was given Bactrim per report from the outside hospital. When she presented to the emergency room Patient appeared nontoxic but was found to be tachycardic. She was not febrile, heart rate was 108 not requiring supplemental oxygen. Labs revealed a normal white count, hemoglobin of 8.3, chest x-ray was unremarkable, first troponin negative, CT scan of the chest showed no pulmonary emboli. Lactic acid was remarkable 7.1. CMP was unremarkable. Creatinine 1.01. AST ALT 66/36. Magnesium 1.8. Urinalysis was done however I do not have that result. They started her on IV fluid boluses cefepime and vancomycin and was then decided to be transferred here since for specialist evaluation. Patient is in sinus tach on telemetry rate in the low 100s, Not requiring supplemental oxygen here. Please note her chest CT does note a right upper lobe nodule that is newly identified 5.2 mm in the upper lobe of the right lung, a six-month CT follow-up should be considered. Past medical history: As above Past surgical history: Right mass removed from right upper chest, mass found to be benign however I do not have records of that. Social history: Patient smokes 5 cigarettes/day, drinks 2 glasses of wine per day, no illicit drugs. Home medications:Amphetamine dextroamphetamine 20 mg 1 tab twice daily, venlafaxine 150 mg 1 cap daily, fluticasone Vilanterol 100-25 mcg 1 puff by mouth daily, Vitamin C, vitamin D 5000 units 1 tab q. weekly, albuterol 4 times daily as needed for wheezing, bupropion SR 150 mg 1 tab twice daily, melatonin 3 mg p.o. as needed insomnia, cyanocobalamin 100 mcg 1 tab twice daily. Allergies Allergy/AdvReac Type Severity Reaction Status Date / Time No Known Allergies Allergy Verified 09/12/18 08:28 Home Medications Home Medications Medication Instructions Recorded Confirmed Type albuterol sulfate [Ventolin HFA] 2 puff INHALATION Q6H PRN 05/23/18 09/12/18 History aripiprazole [Abilify] 5 mg PO QAM 05/23/18 09/12/18 History bupropion HCl [Wellbutrin SR] 400 mg PO QAM 05/23/18 09/12/18 History calcium carbonate [Tums] 200 mg PO DAILY PRN 05/23/18 08/28/18 History dextroamphetamine-amphetamine 20 mg PO BID 05/23/18 09/12/18 History [Adderall] multivitamin 1 tab PO QAM 05/23/18 09/12/18 History nicotine 1 patch TRANSDERMAL DAILY 05/23/18 09/12/18 History venlafaxine [Effexor XR] 150 mg PO QAM 05/23/18 09/12/18 History metoprolol tartrate 25 mg PO BID 08/28/18 09/12/18 History acetaminophen [Pain Reliever] 1,000 mg PO Q8H PRN #90 tab 09/12/18 Rx aspirin 325 mg PO BID #28 tab 09/12/18 Rx celecoxib [Celebrex] 200 mg PO BID PRN 14 Days #28 cap 09/12/18 Rx oxycodone 5 mg PO Q6H PRN #30 tab MDD 6 tabs 09/12/18 Rx sennosides [Senokot] 17.2 mg PO HS PRN 14 Days #28 tab 09/12/18 Rx Past Med/Surg History Social History Current Living Situation: Family Other Information That Helps Us Care for You: No Feels Safe at Home: Yes Safety Concerns: Feels Safe At This Time Smoking Status: Current every day smoker Tobacco Type: cigarettes Do You Dip or Chew Tobacco: No Second Hand Exposure: Yes Hx Alcohol Use: Yes Alcohol type: wine Alcohol Intake Frequency: 0-2 drinks per day Hx Substance Use: No Beliefs That Will Affect Care: None Preferred Language: Nepalese Communication Ability: Effective Satellite Dish Installer Required: No Review of Systems All systems reviewed & are unremarkable except as noted in HPI & below (denies chest pain, dyspnea, headache, leg swelling, calf pain or hip pain. Denies abnormal drainage or swelling at surgical site on left hip. Denies dysuria although states urine was "dark".) Physical Exam 2 Vital Signs (Past 24 Hours): Last Vital Signs Temp 37.4 C 09/21/18 19:24 Pulse 101 H 09/21/18 19:24 Resp 18 09/21/18 19:24 BP 144/91 H 09/21/18 19:24 Pulse Ox 100 09/21/18 19:24 Physical Exam: Vitals noted as above and within normal limits with the execption of sinus tachycardia. GENERAL: Awake, alert, well-appearing, in no distress HENT: Normocephalic, atraumatic. EYES: Normal conjunctiva. Sclera non-icteric. EOMI. NECK: Supple. Full range of motion. no JVD RESPIRATORY: Clear to auscultation. CARDIAC: Sinus tachycardia, rate 109. Extremities warm and well perfused. Pulses equal. ABDOMEN: Soft, non-distended. No tenderness to palpation. No rebound or guarding. No masses. Bowel sounds are normal. LOWER EXTREMITIES: Calves are equal size bilaterally and non-tender. No edema. No discoloration. Left hip surgical incision in tact with surrounding dependent bruising, non draining non fluctuant. NEURO: No gross focal motor deficits noted. SKIN: Rash not present. No jaundice noted. Supervising Physician Co-Signing Physician Notes Pt seen/examined following resident MD Yenny Michel. Orders and plan of care formulated with resident. 52 y/o F Hx COPD, anxiety, smoker - recent L THR - she presents as a transfer due to fever, leukocytosis and an elevated lactic acid. She has a + UA, although it is not clear if this is the source or if it is related to her recent surgery. She does not reprt excessive pain at the site and an infection is not immediately apparent. OE AAO x 3 - tremerous, middle-aged F - no distress S1,2 R CTAB NT, ND No CCE No deficits There is no external evidence of surgical site infection P: Placed on Cef/Vanc pending culture results and an ortho consult COPD - no evidence of exacerbation - cont prescribed inhalers Anx - cont Abilify I had questioned the pt reg alcohol use due to her tremors - denies excessive intake
[2018-09-21] MEDS ORDERED: CALCIUM CARBONATE 500 MG CHEWABLE TAB PO PRN (20:47)
[2018-09-21 21:27] LABS: Basophils # (auto) 0.01 K/uL (0-0.2); Basophils % (auto) 0.2 %; Eosinophils # (auto) 0.04 K/uL (0-0.5); Eosinophils % (auto) 0.7 %; Hematocrit (blood only) 22.3 % (37-47); Hemoglobin 7.1 g/dL (12.0-16.0); Immature Granulocytes # (auto) 0.02 K/uL (0.00-0.02); Immature Granulocytes % (auto) 0.4 %; Lymphocytes # (auto) 0.76 K/uL (1.2-3.4); Lymphocytes % (auto) 13.6 %; Mean Corpuscular Hgb Conc 31.8 g/dL (32-36); Mean Corpuscular Volume 110.9 fL (80-100); Mean Platelet Volume 7.7 fL (7.4-10.4); Monocytes # (auto) 0.55 K/uL (0.11-0.59); Monocytes % (auto) 9.9 %; Neutrophils # (auto) 4.19 K/uL (1.4-6.5); Neutrophils % (auto) 75.2 %; Platelet Count 357 K/uL (130-400); RDW Coefficient of Variation 19.2 % (11.5-14.5); RDW Standard Deviation 78.6 fL (36.4-46.3); Red Blood Count 2.01 M/uL (4.2-5.4); White Blood Count 5.57 K/uL (4.8-10.8)
[2018-09-21 21:39] LABS: INR 1.1 (0.9-1.1); Partial Thromboplastin Time 26.7 Seconds (21.0-31.0); Prothrombin Time 10.8 Seconds (9.0-12.0)
[2018-09-21 21:44] LABS: Albumin Level 2.9 gm/dl (3.4-5.0); Calcium 8.3 mg/dl (8.5-10.1); Creatinine Clr Calc Pharmacy 71.2 ml/min; Est GFR (African American) 99.9; Est GFR (Non-African American) 86.2; Potassium 4.2 mmol/L (3.5-5.1)
[2018-09-21 21:47] LABS: Albumin Globulin Ratio 0.8 (0.9-2); Bilirubin,Total 0.4 mg/dl (0.2-1); Globulin 3.7 gm/dl (2.5-4.0); Total Protein 6.6 gm/dl (6.4-8.2)
[2018-09-21 21:55] LABS: Troponin I < 0.015 ng/ml (0-0.045)
--- NOTE | 2018-09-21 21:55 | Pharmacy Report ---
Pharmacy Abx Initial Consult - Date of Service September 21, 2018 - Pharmacy Dosing Scope Date of Consult: 09/21/18 Consultation requested by: Dr. Michel Pharmacy is consulted to initiate vancomycin IV dosing therapy, order appropriate labs and adjust drug dose/frequency. - Subjective The patient is a 52 year old F admitted on 09/21/18 19:08. - Objective Height: 5 ft 4 in Weight: 59 kg Vital Signs (Past 12hrs): Vital Signs Temp Pulse Resp BP BP Pulse Ox 09/21/18 20:50 36.7 C 100 H 16 135/85 93 09/21/18 19:24 37.4 C 101 H 18 144/91 H 100 Lab Results (24hrs): Laboratory Tests (24 Hours) 09/21/18 09/21/18 21:11 21:11 WBC 5.57 Neut # (Auto) 4.19 Creatinine 0.78 Est Cr Clr Drug Dosing 71.2 Micro Results: 09/21/18 21:10 Blood Culture - Pending Blood 09/21/18 21:17 Blood Culture - Pending Blood - Risk Factors for Resistance * recent L hip replacement on 09/12/18 - Assessment & Plan Assessment 52 year old F admitted with possible hip infection s/p recent hip replacement. Plan vancomycin for treatment of possible sepsis Vancomycin IV * Estimated PK Parameters: Vd 0.7 L/kg, Ivan 0.06 hr-1, t1/2 11.5 hr * Loading dose: 1000 mg (16.9 mg/kg) * Maintenance dose: 1000 mg IV (16.9 mg/kg) every 12 hours * Goal trough level for hip infection : 15 to 20 mcg/mL * Trough ordered for 09/23/18 Pharmacy will continue to follow and will adjust dose/frequency as necessary. Thank you.
[2018-09-21] MEDS ORDERED: LORazepam 1 MG/2 ML VIAL IV STA (22:03)
[2018-09-21] MEDS: cefTRIAXone SODIUM 1,000 MG in DEXTROSE 5% 50 ML IV SCH (22:03)
[2018-09-21] MEDS: MAGNESIUM OXIDE 400 MG TAB PO SCH (22:05)
[2018-09-21] MEDS: ENOXAPARIN INJ 30 MG/0.3 ML SYR SQ SCH (22:10)
[2018-09-21] MEDS: SODIUM CHLORIDE 0.9% 1000ML 1,000 ML IV SCH (22:13)
[2018-09-21 22:34] LABS: Anisocytosis Present; Hypochromasia Present; Macrocytosis Present; Polychromasia 1+
[2018-09-21] MEDS: SENNA 8.6 MG TAB PO PRN (22:36)
[2018-09-21] MEDS: ACETAMINOPHEN 325 MG TAB PO PRN (22:59)
[2018-09-22] MEDS: OXYCODONE HCL IR 5 MG TAB (IMMEDIATE RELEASE) PO PRN ×4 (00:18→20:30)
[2018-09-22 03:17] LABS: Basophils # (auto) 0.03 K/uL (0-0.2); Basophils % (auto) 0.7 %; Eosinophils # (auto) 0.04 K/uL (0-0.5); Eosinophils % (auto) 0.9 %; Hematocrit (blood only) 26.6 % (37-47); Hemoglobin 8.6 g/dL (12.0-16.0); Immature Granulocytes # (auto) 0.03 K/uL (0.00-0.02); Immature Granulocytes % (auto) 0.7 %; Lymphocytes # (auto) 0.94 K/uL (1.2-3.4); Lymphocytes % (auto) 21.3 %; Mean Corpuscular Hgb Conc 32.3 g/dL (32-36); Mean Platelet Volume 7.5 fL (7.4-10.4); Monocytes # (auto) 0.43 K/uL (0.11-0.59); Monocytes % (auto) 9.8 %; Neutrophils # (auto) 2.94 K/uL (1.4-6.5); Neutrophils % (auto) 66.6 %; Platelet Count 320 K/uL (130-400); RDW Coefficient of Variation 19.7 % (11.5-14.5); RDW Standard Deviation 76.5 fL (36.4-46.3); Red Blood Count 2.44 M/uL (4.2-5.4); White Blood Count 4.41 K/uL (4.8-10.8)
[2018-09-22] MEDS: VANCOMYCIN HCL 1,000 MG in SODIUM CHLORIDE 0.9% 250 ML IV SCH ×2 (03:39→16:36)
[2018-09-22 03:51] LABS: Anisocytosis Present; Macrocytosis Present; Polychromasia 1+
[2018-09-22 03:58] LABS: Alanine Aminotransferase 27 U/L (12-78); Albumin Level 2.8 gm/dl (3.4-5.0); Aspartate Aminotransferase 38 U/L (15-37); BUN Creatinine Ratio 13.7 (10-20); Blood Urea Nitrogen 10 mg/dl (7-18); Calcium 8.2 mg/dl (8.5-10.1); Carbon Dioxide 23 mmol/L (21-32); Chloride 103 mmol/L (98-107); Creatinine Clr Calc Pharmacy 76.1 ml/min; Est GFR (African American) 108.2; Est GFR (Non-African American) 93.4; Glucose 108 mg/dl (70-99); Potassium 3.9 mmol/L (3.5-5.1); Sodium 133 mmol/L (136-145)
[2018-09-22 04:02] LABS: Albumin Globulin Ratio 0.8 (0.9-2); Alkaline Phosphatase 96 U/L (45-117); Bilirubin,Total 0.8 mg/dl (0.2-1); Globulin 3.5 gm/dl (2.5-4.0); Total Protein 6.3 gm/dl (6.4-8.2); Troponin I < 0.015 ng/ml (0-0.045)
[2018-09-22] MEDS ORDERED: INFLUENZA ADMINISTRATION CHARGE ONE (05:15)
[2018-09-22] MEDS ORDERED: INFLUENZA VIRUS QUAD VACCINE 0.5 ML SYR IM ONE (05:15)
[2018-09-22] MEDS: VENLAFAXINE HCL XR 150 MG CAPXR PO SCH (07:54)
[2018-09-22] MEDS: MAGNESIUM OXIDE 400 MG TAB PO SCH (07:54)
[2018-09-22] MEDS: SODIUM CHLORIDE 0.9% 1000ML 1,000 ML IV SCH (07:54)
[2018-09-22] MEDS: BuPROPion SR 100 MG TABCR PO SCH ×2 (07:54→21:39)
--- NOTE | 2018-09-22 09:56 | XRay Report ---
XR hip LT min 2V CLINICAL HISTORY: Pain status post hip arthroplasty COMPARISON: September 12, 2018 DISCUSSION: There are postsurgical changes of a total left hip arthroplasty. There is no change in th e appearance of the hardware. No acute fractures or dislocations are visualized. IMPRESSION: Total left hip arthroplasty. No acute fractures or dislocations. Electronically signed by: Ricardo Flores M.D. 09/22/2018 9:55 AM
[2018-09-22] MEDS: ENOXAPARIN INJ 30 MG/0.3 ML SYR SQ SCH ×2 (10:03→21:40)
[2018-09-22] MEDS: ACETAMINOPHEN 325 MG TAB PO PRN (16:36)
--- NOTE | 2018-09-22 17:43 | Family Medicine Progress Note ---
Date of Service September 22, 2018 Assessment & Plan (1) Sepsis: 52-year-old female with past medical history of Depression anxiety, COPD, Insomnia, here as a direct admit from outside hospital due to elevated lactate and concern for sepsis status post left total hip surgery on 09/12/2018. Sepsis in setting of 9 days s/p left hip arthroplasty, with +UA in outpatient setting Plan: -find out source of sepsis. Unclear and unlikely from hip. -f/u with cultures Anemia -per outside report hgb was 8. Is 7 here -dyspnea and chest pressure could be explained by acute blood loss -FOBT + ---GI consult placed. Chest pressure---RESOLVING -sinus tachy, no ST changes -CTA at outside hosp neg for PE -trend trop (initial at outside hosp negative) -likely multifactorial, will r/o cardiac cause Alcohol use -pt sadmits to being alcoholic -[facility] protocol -folic acid and thiamine checks -will trial small one time dose of ativan, may need monitoring for withdrawal SMOKNG CESSATION -states she has been trying to quit smoking. -1ppd- requests 14mg patch. FEN/GI: regular diet, NSS @80 ml/hr DVT ppx: lovenox q12h CODE STATUS: FULL DISPO: med/surg with tele Other ongoing medical problems: Depression/anxiety: -continue home meds including bupropion and venlafaxine -unsure if abilify is a home medication, need to confirm with pt ADHD -hold adderal COPD -continue home inhalers (2) Depression: (3) Anxiety: (4) Attention deficit disorder: (5) Anemia: (6) Elevated lactic acid level: (7) History of total left hip arthroplasty: (8) Incidental lung nodule, > 3mm and < 8mm: 09/21/18 CTA -- Please note her chest CT does note a right upper lobe nodule that is newly identified 5.2 mm in the upper lobe of the right lung, a six- month CT follow-up should be considered. Supervising Physician Co-Signing Physician Notes Attending attestation Pt seen and examined in concert with Dr. Denny. In agreement with the documented findings as noted in the resident documentation with any exceptions or additions as noted here. Reports mild aching pain of the left hip which is improved from postoperative and is �doing beautiful.� Would describe herself as an alcoholic, and drinks up to 2 large wine glasses per night every night, feels that she needs it. States that her tremor has been chronic since her youth, but may be worse now. No recent abstinent periods. Tolerating POI well at home. Normal BM without blood per pt. On examination, S1/S2 nl, IRR/IRR. Decreased breath sounds throughout with diffuse rhonchi. Left hip appears bruised but without erythema or drainage or even considerable TTP. No distal LE edema. Sepsis secondary to unknown source � more concerning for urinary source than pulmonary or orthopaedic � ortho consultation appreciated � continue vanc/ rocephin and follow up cultures. IVF Anemia � concerning for blood loss vs. GI source � FOBT today. Trend H/H. Transfusion threshold at 7 or with symptoms. Chest pain � resolved, negative troponins Acute on chronic tremor with significant alcohol history � [facility] protocol COPD Else as per resident documentation above. Subjective Pt admits to needing her two drinks every night, and admits to being "alcoholic ". Denies chest pain currently but still has exertional dyspnea. Denies redness or warmth of the right hip. Denies dysuria. Review of Systems All systems reviewed & are unremarkable except as noted in HPI & below Physical Exam 2 Vital Signs (Past 24 Hours): Last Vital Signs Temp 36.9 C 09/22/18 15:32 Pulse 93 H 09/22/18 16:00 Resp 20 09/22/18 15:32 BP 138/94 09/22/18 15:32 Pulse Ox 94 09/22/18 15:32 General: Alert, oriented. No acute distress HEENT: NC/AT, PERRL, EOMI, oropharynx moist. Chest: Nontender to palpation. CV: RRR, Normal s1, s2. No murmurs appreciated Resp: Breath sounds clear bilaterally, no increased effort of breathing. No crackles/rhonchi/rales. Abdomen: BS+. Soft, nontender, nondistended. No guarding. No organomegaly appreciated. Extremities: Tremulous upper extremities. No edema iower extremities. Right hip bandaegd with some bruising but no warmth or erythema. Results & Data Laboratory Results Laboratory Results - last 24 hr 09/22/18 09/22/18 09/22/18 03:06 03:06 03:06 WBC 4.41 L RBC 2.44 L Hgb 8.6 L Hct 26.6 L MCV 109.0 H MCH 35.2 H MCHC 32.3 RDW Std Deviation 76.5 H RDW Coeff of Lucia 19.7 H Plt Count 320 MPV 7.5 Immature Gran % (Auto) 0.7 Neut % (Auto) 66.6 Lymph % (Auto) 21.3 [place] % (Auto) 9.8 Eos % (Auto) 0.9 Baso % (Auto) 0.7 Immature Gran # (Auto) 0.03 H Neut # (Auto) 2.94 Lymph # (Auto) 0.94 L [place] # (Auto) 0.43 Eos # (Auto) 0.04 Baso # (Auto) 0.03 Polychromasia 1+ Anisocytosis Present Macrocytosis Present ESR Sodium 133 L Potassium 3.9 Chloride 103 Carbon Dioxide 23 Anion Gap 7.0 BUN 10 Creatinine 0.73 Est Cr Clr Drug Dosing 76.1 Est GFR ( Amer) 108.2 Est GFR (Non-Af Amer) 93.4 BUN/Creatinine Ratio 13.7 Glucose 108 H Calcium 8.2 L Iron TIBC Ferritin Total Bilirubin 0.8 AST 38 H ALT 27 Alkaline Phosphatase 96 Troponin I < 0.015 C-Reactive Protein Total Protein 6.3 L Albumin 2.8 L Globulin 3.5 Albumin/Globulin Ratio 0.8 L Folate Stool Occult Bld Scrn Hepatitis C Ab Screen Neg 09/22/18 09/22/18 09/22/18 17:30 19:08 19:08 WBC RBC Hgb Hct MCV MCH MCHC RDW Std Deviation RDW Coeff of Lucia Plt Count MPV Immature Gran % (Auto) Neut % (Auto) Lymph % (Auto) [place] % (Auto) Eos % (Auto) Baso % (Auto) Immature Gran # (Auto) Neut # (Auto) Lymph # (Auto) [place] # (Auto) Eos # (Auto) Baso # (Auto) Polychromasia Anisocytosis Macrocytosis ESR Sodium Potassium Chloride Carbon Dioxide Anion Gap BUN Creatinine Est Cr Clr Drug Dosing Est GFR ( Amer) Est GFR (Non-Af Amer) BUN/Creatinine Ratio Glucose Calcium Iron 31 L TIBC 312 Ferritin 123.5 Total Bilirubin AST ALT Alkaline Phosphatase Troponin I C-Reactive Protein Total Protein Albumin Globulin Albumin/Globulin Ratio Folate 13.59 Stool Occult Bld Scrn Positive H Hepatitis C Ab Screen 09/22/18 09/22/18 20:52 20:52 WBC RBC Hgb Hct MCV MCH MCHC RDW Std Deviation RDW Coeff of Lucia Plt Count MPV Immature Gran % (Auto) Neut % (Auto) Lymph % (Auto) [place] % (Auto) Eos % (Auto) Baso % (Auto) Immature Gran # (Auto) Neut # (Auto) Lymph # (Auto) [place] # (Auto) Eos # (Auto) Baso # (Auto) Polychromasia Anisocytosis Macrocytosis ESR 7 Sodium Potassium Chloride Carbon Dioxide Anion Gap BUN Creatinine Est Cr Clr Drug Dosing Est GFR ( Amer) Est GFR (Non-Af Amer) BUN/Creatinine Ratio Glucose Calcium Iron TIBC Ferritin Total Bilirubin AST ALT Alkaline Phosphatase Troponin I C-Reactive Protein 3.93 H Total Protein Albumin Globulin Albumin/Globulin Ratio Folate Stool Occult Bld Scrn Hepatitis C Ab Screen Medications Administered Home Medications albuterol sulfate [Ventolin HFA] 2 puff INHALATION Q6H PRN 05/23/18 [History Confirmed 09/12/18] aripiprazole [Abilify] 5 mg PO QAM 05/23/18 [History Confirmed 09/12/18] bupropion HCl [Wellbutrin SR] 400 mg PO QAM 05/23/18 [History Confirmed 09/12/18 ] calcium carbonate [Tums] 200 mg PO DAILY PRN 05/23/18 [History Confirmed ] dextroamphetamine-amphetamine [Adderall] 20 mg PO BID 05/23/18 [History Confirmed 09/12/18] multivitamin 1 tab PO QAM 05/23/18 [History Confirmed 09/12/18] nicotine 1 patch TRANSDERMAL DAILY 05/23/18 [History Confirmed 09/12/18] venlafaxine [Effexor XR] 150 mg PO QAM 05/23/18 [History Confirmed 09/12/18] metoprolol tartrate 25 mg PO BID 08/28/18 [History Confirmed 09/12/18] acetaminophen [Pain Reliever] 1,000 mg PO Q8H PRN #90 tab 09/12/18 [Rx] aspirin 325 mg PO BID #28 tab 09/12/18 [Rx] celecoxib [Celebrex] 200 mg PO BID PRN 14 Days #28 cap 09/12/18 [Rx] oxycodone 5 mg PO Q6H PRN #30 tab MDD 6 tabs 09/12/18 [Rx] sennosides [Senokot] 17.2 mg PO HS PRN 14 Days #28 tab 09/12/18 [Rx] Active Medications Acetaminophen (Tylenol) 650 mg PO Q4H PRN PRN Reason: pain/fever Stop: 10/21/18 20:01 Last Admin: 09/22/18 16:36 Dose: 650 mg Al Hydrox/Mg Hydrox/Simethicone (Maalox) 30 ml PO Q6H PRN PRN Reason: Dyspepsia Stop: 10/21/18 20:01 Bupropion HCl (Wellbutrin-Sr) 200 mg PO BID KATHLEEN Stop: 10/22/18 08:59 Last Admin: 09/22/18 21:39 Dose: 200 mg Calcium Carbonate (Tums) 500 mg PO DAILY PRN PRN Reason: Heartburn Stop: 10/21/18 20:46 Enoxaparin Sodium (Lovenox) 30 mg SQ Q12H KATHLEEN Stop: 10/21/18 20:14 Last Admin: 09/22/18 21:40 Dose: 30 mg Vancomycin HCl 1,000 mg/ (Sodium Chloride) 270 mls @ 125 mls/hr IV Q12H KATHLEEN Stop: 09/24/18 03:59 Last Infusion: 09/22/18 21:38 Dose: Infused Ceftriaxone Sodium 1,000 mg/ (Dextrose) 50 mls @ 100 mls/hr IV DAILY@2200 KATHLEEN; Protocol Stop: 10/01/18 21:59 Last Infusion: 09/22/18 23:20 Dose: Infused Magnesium Hydroxide (Milk Of Magnesia) 30 ml PO Q6H PRN PRN Reason: Constipation Stop: 10/21/18 20:01 Miscellaneous (Remove Nicoderm Patch) 1 ea N/A HS KATHLEEN Stop: 10/22/18 20:59 Miscellaneous Information (Consult) 1 ea N/A UD PRN PRN Reason: Consult Stop: 10/21/18 20:26 Nicotine (Nicoderm Cq) 14 mg TD QAM KATHLEEN Stop: 10/22/18 17:59 Last Admin: 09/22/18 19:00 Dose: 14 mg Oxycodone HCl (Roxicodone Immediate Rel) 5 mg PO Q6H PRN PRN Reason: pain Stop: 10/05/18 20:46 Last Admin: 09/22/18 20:30 Dose: 5 mg Polyethylene Glycol (Miralax Powder Packet) 17 gm PO DAILY PRN PRN Reason: Constipation Stop: 10/21/18 20:01 Sennosides (Senokot) 17.2 mg PO HS PRN PRN Reason: constipation Stop: 10/21/18 20:46 Last Admin: 09/21/18 22:36 Dose: 8.6 mg Venlafaxine HCl (Effexor Extended Release) 150 mg PO [facility] Stop: 10/22/18 08:59 Last Admin: 09/22/18 07:54 Dose: 150 mg
[2018-09-22] MEDS: NICOTINE 14 MG/24 HR PATCH TD SCH (19:00)
[2018-09-22 19:39] LABS: Ferritin 123.5 ng/ml (8-388)
[2018-09-22] MEDS: cefTRIAXone SODIUM 1,000 MG in DEXTROSE 5% 50 ML IV SCH (21:58)
--- NOTE | 2018-09-23 00:29 | Consultation Report ---
DATE OF CONSULTATION: 09/22/2018 HISTORY OF PRESENT ILLNESS: This is a 52-year-old female seen at the request of Dr. Liv Kate and Dr. Edi oHdge regarding question regarding recent total hip arthroplasty performed by Dr. Nahum Chauhan on 09/12/2018. The patient had an uneventful total hip revision performed by Dr. Chauhan. She had her primary hip performed by Dr. Yaron Enciso in 2017 and had persistent ongoing pain related to the hip since she had it initially implanted. She had attempted and failed observation and conservative management and had a revision hip which she was very pleased with. She was discharged home with instructions and placed on prophylactic aspirin therapy for management of potential risk for DVT. She was doing well with her recovery, however, until 09/21/2018, when she felt more winded and dizzy doing simple exercises. She was seen by her primary care physician and was told that she had 25,000 CFU per urinalysis and she was placed on p.o. Bactrim. She was seen in [facility] and had a battery of tests performed. She had a positive lactic acid of 7.1 and was then transferred to [facility] for further care and management. There was concern regarding her recent hip replacement and orthopedics was consulted. PAST MEDICAL HISTORY: Depression, anxiety, COPD, insomnia, and total hip arthroplasty initially performed in 2017 with hip revision on 09/12/2018. Also ADHD. ALLERGIES: No known drug allergies. MEDICATIONS: Please note the medications list in the medical record. SOCIAL HISTORY: Smokes tobacco every day. She drinks wine, up to 2 nonstandard glasses of wine per day. Denies drug use. She lives at home with her family. PHYSICAL EXAMINATION: This is a 52-year-old female who appears slightly older than her stated age, alert and oriented x3. Speech is clear and fluent. Affect is appropriate. She has generalized tremulousness, bilateral upper and lower extremities. Examination of the left hip demonstrates a healing anterior hip incision clean, dry, intact, well approximated. No significant erythema, no ecchymosis, minimal tenderness to palpation at the incision. There is no fluctuance and no apparent abscess palpated. Range of motion is within normal limits, status post total hip arthroplasty. There is no clicking, catching, or clunking of the hip with range of motion. The patient has no pain with active or passive range of motion of the left hip. The hip is reduced within its acetabulum. RADIOGRAPHIC DATA: Radiographs were reviewed demonstrating a well-fixed, well-placed total hip arthroplasty including acetabulum and femoral revisions. No bone fracture was appreciated. Standard alignment is noted. LABORATORIES: Reviewed and the lactic acid was noted elevated from [facility]; however, there is no repeat laboratory noted at this time. IMPRESSION: Stable well-placed, well-fixed revision left total hip arthroplasty, benign. RECOMMENDATION: Weightbearing as tolerated. Maintain hip precautions as per Dr. Chauhan's recommendations, continue anticoagulation as approved by the Department of Medicine and continue physical therapy and occupational therapy. Follow up with Dr. Chauhan as no outpatient. Patient is a nonsurgical candidate. Thank you for the opportunity to consult in the care of this patient.
[2018-09-23] MEDS: ACETAMINOPHEN 325 MG TAB PO PRN ×2 (02:46→15:25)
[2018-09-23] MEDS ORDERED: VANCOMYCIN TROUGH ONE (03:30)
[2018-09-23] MEDS: VANCOMYCIN HCL 1,000 MG in SODIUM CHLORIDE 0.9% 250 ML IV SCH ×3 (04:00→20:21)
[2018-09-23 04:10] LABS: Basophils # (auto) 0.01 K/uL (0-0.2); Basophils % (auto) 0.2 %; Eosinophils # (auto) 0.14 K/uL (0-0.5); Eosinophils % (auto) 2.4 %; Hematocrit (blood only) 26.3 % (37-47); Hemoglobin 8.4 g/dL (12.0-16.0); Immature Granulocytes # (auto) 0.02 K/uL (0.00-0.02); Immature Granulocytes % (auto) 0.3 %; Lymphocytes # (auto) 0.83 K/uL (1.2-3.4); Lymphocytes % (auto) 14.1 %; Mean Corpuscular Hgb Conc 31.9 g/dL (32-36); Mean Corpuscular Volume 108.2 fL (80-100); Monocytes # (auto) 0.52 K/uL (0.11-0.59); Monocytes % (auto) 8.8 %; Neutrophils # (auto) 4.38 K/uL (1.4-6.5); Neutrophils % (auto) 74.2 %; Platelet Count 335 K/uL (130-400); RDW Standard Deviation 78.3 fL (36.4-46.3); Red Blood Count 2.43 M/uL (4.2-5.4)
[2018-09-23 04:33] LABS: Albumin Globulin Ratio 0.8 (0.9-2); Albumin Level 2.7 gm/dl (3.4-5.0); BUN Creatinine Ratio 5.7 (10-20); Bilirubin,Total 0.5 mg/dl (0.2-1); Calcium 8.5 mg/dl (8.5-10.1); Creatinine Clr Calc Pharmacy 138.8 ml/min; Est GFR (African American) 136.9; Est GFR (Non-African American) 118.1; Globulin 3.4 gm/dl (2.5-4.0); Potassium 4.1 mmol/L (3.5-5.1); Total Protein 6.1 gm/dl (6.4-8.2)
[2018-09-23 04:49] LABS: Anisocytosis Present
[2018-09-23] MEDS: BuPROPion SR 100 MG TABCR PO SCH ×2 (08:26→20:22)
[2018-09-23] MEDS: VENLAFAXINE HCL XR 150 MG CAPXR PO SCH (08:26)
[2018-09-23] MEDS: NICOTINE 14 MG/24 HR PATCH TD SCH (08:27)
[2018-09-23] MEDS: OXYCODONE HCL IR 5 MG TAB (IMMEDIATE RELEASE) PO PRN ×2 (08:31→15:40)
--- NOTE | 2018-09-23 11:01 | Pharmacy Report ---
Pharmacy Abx Dose Short Note - Date of Service September 23, 2018 - Assessment & Plan Laboratory Tests 09/22/18 09/23/18 03:06 03:42 Creatinine 0.73 0.40 L D Est Cr Clr Drug Dosing 76.1 138.8 Assessment 52 year old F receiving IV Vancomycin 1000mg IV q12 Hours & Rocephin for treatment of possible hip infection s/p recent hip replacement. Day # 3 of antimicrobial therapy. Plan Vancomycin * Trough level of 8.5 mcg/mL is subtherapeutic * Change to 1000 mg IV every 8 hours, patient's SCr has improved significantly. * Goal trough level for possible joint/bone infection : 15 to 20 mcg/mL * Trough level ordered for: 09/24/17 prior to 1200 dose Rocephin 1 gram IV daily Pharmacy will continue to follow and will adjust dose/frequency as necessary. Thank you.
--- NOTE | 2018-09-23 11:52 | Gastrointestinal Consultation ---
Date of Consultation September 23, 2018 Assessment & Plan (1) Anemia: No evidence of ongoing overt GI bleeding, she had black stool last week which resolved spontaneously. Her H/H improved with PRBC transfusion. In view of the drop in H/H after surgery, need to r/o PUD (NSIADs related Vs stress induced). Recommend: Will arrange for EGD on Tuesday. IV PPI BID Treatment for suspected sepsis per primary team. Monitor H/H (2) Fecal occult blood test positive: History of Present Illness Attending Physician: Nish Gallegos MD 52 year-old female patient with medical comorbids of Depression, COPD, s/p Left Hip surgery a week ago, admitted to the hospital for concerns of sepsis and UTI , found with anemia and drop in H/H with positive FOBT hence GI is consulted. Patient reported dark colored stool that lasted few days after surgery but now her stool is brown, she also had mild epigastric pain since after her surgery. She takes Celebrex and Aspirin for arthritis. She was given IV fluid and ABx and her vitals are now normal. She denies any diarrhea or constipation. She had colonoscopy few years ago and was told it's normal. Past medical history: As above Past surgical history: Hip surgery x3 Social history: Current smoker and drinks wine regularly. FHx: noncontributory. Allergies Allergy/AdvReac Type Severity Reaction Status Date / Time No Known Allergies Allergy Verified 09/12/18 08:28 Home Medications Home Medications Medication Instructions Recorded Confirmed Type albuterol sulfate [Ventolin HFA] 2 puff INHALATION Q6H PRN 05/23/18 09/12/18 History aripiprazole [Abilify] 5 mg PO QAM 05/23/18 09/12/18 History bupropion HCl [Wellbutrin SR] 400 mg PO QAM 05/23/18 09/12/18 History calcium carbonate [Tums] 200 mg PO DAILY PRN 05/23/18 08/28/18 History dextroamphetamine-amphetamine 20 mg PO BID 05/23/18 09/12/18 History [Adderall] multivitamin 1 tab PO QAM 05/23/18 09/12/18 History nicotine 1 patch TRANSDERMAL DAILY 05/23/18 09/12/18 History venlafaxine [Effexor XR] 150 mg PO QAM 05/23/18 09/12/18 History metoprolol tartrate 25 mg PO BID 08/28/18 09/12/18 History acetaminophen [Pain Reliever] 1,000 mg PO Q8H PRN #90 tab 09/12/18 Rx aspirin 325 mg PO BID #28 tab 09/12/18 Rx celecoxib [Celebrex] 200 mg PO BID PRN 14 Days #28 cap 09/12/18 Rx oxycodone 5 mg PO Q6H PRN #30 tab MDD 6 tabs 09/12/18 Rx sennosides [Senokot] 17.2 mg PO HS PRN 14 Days #28 tab 09/12/18 Rx Patient History Social History Current Living Situation: Family Other Information That Helps Us Care for You: No Feels Safe at Home: Yes Safety Concerns: Feels Safe At This Time Smoking Status: Light tobacco smoker Cigarettes per Day: 3-4 Hx Alcohol Use: Yes Alcohol type: wine Alcohol Intake Frequency: 0-2 drinks per day Hx Substance Use: No Beliefs That Will Affect Care: None Communication Ability: Effective Review of Systems Constitutional: no fever, no chills, no fatigue and no weight loss Eyes: no eye pain and no worsening vision Ear, Nose, Mouth, Throat: no tinnitus, no dizziness, no nasal discharge and no epistaxis Respiratory: no cough, no dyspnea, no dyspnea on exertion and no wheezing Cardiovascular: no chest pain, no orthopnea, no palpitations and no edema Gastrointestinal: as per Subjective / HPI Genitourinary (Female): no dysuria, no urinary frequency, no urinary incontinence and no hematuria Musculoskeletal: no stiffness and no myalgia Neurologic: no localized weakness, no paralysis, no tremor(s) and no headache(s) Endocrine: no polydipsia and no polyuria Hematologic / Lymphatic: no easy bleeding and no night sweats Physical Exam 2 Vital Signs (Past 24 Hours): Last Vital Signs Temp 37.0 C 09/23/18 07:21 Pulse 84 09/23/18 08:00 Resp 20 09/23/18 07:21 BP 148/78 H 09/23/18 07:21 Pulse Ox 98 09/23/18 07:21 Constitutional: + well hydrated, cooperative and comfortable Eyes: PERRL, conjunctivae normal, anicteric sclerae ENMT: external ear and nose normal, oropharynx normal Neck: normal visual inspection and trachea midline Respiratory: normal respiratory effort, lungs clear to auscultation Auscultation: no wheezes Cardiovascular: RRR, no murmur, no edema Gastrointestinal (Abdomen): normal bowel sounds, soft, nontender, no hepatosplenomegaly Musculoskeletal: no cyanosis or clubbing, extremities motor strength 5/5 Skin: no rashes, warm and dry Neurologic: awake; no focal motor deficits Motor/Sensory: no tremor Results & Data Laboratory Results Laboratory Results - last 24 hr 09/22/18 09/22/18 09/22/18 17:30 19:08 19:08 WBC RBC Hgb Hct MCV MCH MCHC RDW Std Deviation RDW Coeff of Lucia Plt Count MPV Immature Gran % (Auto) Neut % (Auto) Lymph % (Auto) [place] % (Auto) Eos % (Auto) Baso % (Auto) Immature Gran # (Auto) Neut # (Auto) Lymph # (Auto) [place] # (Auto) Eos # (Auto) Baso # (Auto) Anisocytosis ESR Sodium Potassium Chloride Carbon Dioxide Anion Gap BUN Creatinine Est Cr Clr Drug Dosing Est GFR ( Amer) Est GFR (Non-Af Amer) BUN/Creatinine Ratio Glucose Calcium Iron 31 L TIBC 312 Ferritin 123.5 Total Bilirubin AST ALT Alkaline Phosphatase C-Reactive Protein Total Protein Albumin Globulin Albumin/Globulin Ratio Folate 13.59 Stool Occult Bld Scrn Positive H Vancomycin Trough 09/22/18 09/22/18 09/23/18 20:52 20:52 03:42 WBC RBC Hgb Hct MCV MCH MCHC RDW Std Deviation RDW Coeff of Lucia Plt Count MPV Immature Gran % (Auto) Neut % (Auto) Lymph % (Auto) [place] % (Auto) Eos % (Auto) Baso % (Auto) Immature Gran # (Auto) Neut # (Auto) Lymph # (Auto) [place] # (Auto) Eos # (Auto) Baso # (Auto) Anisocytosis ESR 7 Sodium Potassium Chloride Carbon Dioxide Anion Gap BUN Creatinine Est Cr Clr Drug Dosing Est GFR ( Amer) Est GFR (Non-Af Amer) BUN/Creatinine Ratio Glucose Calcium Iron TIBC Ferritin Total Bilirubin AST ALT Alkaline Phosphatase C-Reactive Protein 3.93 H Total Protein Albumin Globulin Albumin/Globulin Ratio Folate Stool Occult Bld Scrn Vancomycin Trough 8.5 09/23/18 09/23/18 03:42 03:42 WBC 5.90 RBC 2.43 L Hgb 8.4 L Hct 26.3 L MCV 108.2 H MCH 34.6 H MCHC 31.9 L RDW Std Deviation 78.3 H RDW Coeff of Lucia 20.0 H Plt Count 335 MPV 8.0 Immature Gran % (Auto) 0.3 Neut % (Auto) 74.2 Lymph % (Auto) 14.1 [place] % (Auto) 8.8 Eos % (Auto) 2.4 Baso % (Auto) 0.2 Immature Gran # (Auto) 0.02 Neut # (Auto) 4.38 Lymph # (Auto) 0.83 L [place] # (Auto) 0.52 Eos # (Auto) 0.14 Baso # (Auto) 0.01 Anisocytosis Present ESR Sodium 133 L Potassium 4.1 Chloride 102 Carbon Dioxide 27 Anion Gap 4.0 BUN 2 L D Creatinine 0.40 L D Est Cr Clr Drug Dosing 138.8 Est GFR ( Amer) 136.9 Est GFR (Non-Af Amer) 118.1 BUN/Creatinine Ratio 5.7 L Glucose 88 Calcium 8.5 Iron TIBC Ferritin Total Bilirubin 0.5 AST 23 ALT 21 Alkaline Phosphatase 87 C-Reactive Protein Total Protein 6.1 L Albumin 2.7 L Globulin 3.4 Albumin/Globulin Ratio 0.8 L Folate Stool Occult Bld Scrn Vancomycin Trough
[2018-09-23] MEDS: ENOXAPARIN INJ 30 MG/0.3 ML SYR SQ SCH ×2 (13:18→20:22)
[2018-09-23] MEDS: PANTOprazole 40 MG in SYRINGE 0 ML IV SCH ×2 (13:19→22:09)
--- NOTE | 2018-09-23 14:59 | Family Medicine Progress Note ---
Date of Service September 23, 2018 Assessment & Plan (1) Sepsis: 52-year-old female with past medical history of Depression anxiety, COPD, Insomnia, here as a direct admit from outside hospital due to elevated lactate and concern for sepsis status post left total hip surgery on 09/12/2018. 1) Sepsis in setting of 9 days s/p left hip arthroplasty, with +UA in outpatient setting -Etiology unclear and unlikely from hip. -blood cx: NGTD. Urine cx: No growth - Less than 1,000 colonies/mL, Final report to follow. 2) Anemia -last hgb 8.4. Cont trend -FOBT + -GI consult: EGD on Tuesday, IV PPI BID, trend H/H 3) Chest pressure -resolved at present -on admit: sinus tachy, no ST changes -CTA at outside hosp neg for PE - trop initial and outside hosp negative 4) Alcohol use -pt admits two LARGE wine glasses / night -CIWA protocol -folic acid normal, thiamine pending 5) Tobacco Abuse -pt states has been trying to quit smoking, 1ppd -nicotine 14mg patch qAM 6) Depression/anxiety -cont [employer] bupropion and venlafaxine -unsure if abilify is a home medication, need to confirm with pt 7) ADHD -hold adderall 8) COPD -continue home inhalers FULL DVT ppx: lovenox q12h DISPO: med/surg with tele (2) Depression: (3) Anxiety: (4) Attention deficit disorder: (5) Anemia: (6) Elevated lactic acid level: (7) History of total left hip arthroplasty: (8) Incidental lung nodule, > 3mm and < 8mm: 09/21/18 CTA -- Please note her chest CT does note a right upper lobe nodule that is newly identified 5.2 mm in the upper lobe of the right lung, a six- month CT follow-up should be considered. Supervising Physician Co-Signing Physician Notes Attending attestation Pt seen and examined in concert with Dr. Thomas. In agreement with the documented findings as noted in the resident documentation with any exceptions or additions as noted here. Pt reports stable aching pain of the left hip worse with weight bearing. Tremor has been stable. Mild, brief headache which resolved with pain medication. On examination, S1/S2 nl RRR no MCG. CTAB. Abd NT/ND BS+ve. Left hip C/D/I with surrounding ecchymosis stable from previous Sepsis with abn UA and new left hip prosthesis � negative BCx x 48 hours, UCx <1 ,000 colonies/mL . UCx in [facility] from 09/15 grew [place] pending records will narrow. Anemia, acute with GIB � GI consultation appreciated � EGD pending, continue PPI Chronic tremor with etOH use � CIWA protocol without Ativan use, patient reports no complaints similar. Tobacco use � patient endorses desire to quit but is tolerating nicotine patch 14mg well. Else per resident documentation as noted. Subjective Pt found in bed this AM in NAD. Reports no acute overnight events. Has questions about LOS going forward. Denies chest pain currently but still has exertional dyspnea. Denies F/N/V/D, redness or warmth of the right hip, dysuria. Tolerating PO intake. No issues voiding. Pt has no other acute concerns or complaints today. Physical Exam 2 Vital Signs (Past 24 Hours): Last Vital Signs Temp 37.0 C 09/23/18 14:44 Pulse 97 H 09/23/18 14:44 Resp 20 09/23/18 14:44 BP 152/94 H 09/23/18 14:44 Pulse Ox 96 09/23/18 14:44 Constitutional: WD/WN, vitals as above Eyes: PERRL, conjunctivae normal, anicteric sclerae ENMT: external ear and nose normal, oropharynx normal Respiratory: normal respiratory effort, lungs clear to auscultation Cardiovascular: RRR, no murmur, no edema Gastrointestinal (Abdomen): normal bowel sounds, soft, nontender, no hepatosplenomegaly Musculoskeletal: tremors UE b/l R hip bandaged, C/D/I Skin: no rashes, warm and dry Psychiatric: A+Ox3, euthymic affect Results & Data Laboratory Results Laboratory Results - last 24 hr 09/22/18 09/22/18 09/22/18 17:30 19:08 19:08 WBC RBC Hgb Hct MCV MCH MCHC RDW Std Deviation RDW Coeff of Lucia Plt Count MPV Immature Gran % (Auto) Neut % (Auto) Lymph % (Auto) [place] % (Auto) Eos % (Auto) Baso % (Auto) Immature Gran # (Auto) Neut # (Auto) Lymph # (Auto) [place] # (Auto) Eos # (Auto) Baso # (Auto) Anisocytosis ESR Sodium Potassium Chloride Carbon Dioxide Anion Gap BUN Creatinine Est Cr Clr Drug Dosing Est GFR ( Amer) Est GFR (Non-Af Amer) BUN/Creatinine Ratio Glucose Calcium Iron 31 L TIBC 312 Ferritin 123.5 Total Bilirubin AST ALT Alkaline Phosphatase C-Reactive Protein Total Protein Albumin Globulin Albumin/Globulin Ratio Folate 13.59 Stool Occult Bld Scrn Positive H Vancomycin Trough 09/22/18 09/22/18 09/23/18 20:52 20:52 03:42 WBC RBC Hgb Hct MCV MCH MCHC RDW Std Deviation RDW Coeff of Lucia Plt Count MPV Immature Gran % (Auto) Neut % (Auto) Lymph % (Auto) [place] % (Auto) Eos % (Auto) Baso % (Auto) Immature Gran # (Auto) Neut # (Auto) Lymph # (Auto) [place] # (Auto) Eos # (Auto) Baso # (Auto) Anisocytosis ESR 7 Sodium Potassium Chloride Carbon Dioxide Anion Gap BUN Creatinine Est Cr Clr Drug Dosing Est GFR ( Amer) Est GFR (Non-Af Amer) BUN/Creatinine Ratio Glucose Calcium Iron TIBC Ferritin Total Bilirubin AST ALT Alkaline Phosphatase C-Reactive Protein 3.93 H Total Protein Albumin Globulin Albumin/Globulin Ratio Folate Stool Occult Bld Scrn Vancomycin Trough 8.5 09/23/18 09/23/18 03:42 03:42 WBC 5.90 RBC 2.43 L Hgb 8.4 L Hct 26.3 L MCV 108.2 H MCH 34.6 H MCHC 31.9 L RDW Std Deviation 78.3 H RDW Coeff of Lucia 20.0 H Plt Count 335 MPV 8.0 Immature Gran % (Auto) 0.3 Neut % (Auto) 74.2 Lymph % (Auto) 14.1 [place] % (Auto) 8.8 Eos % (Auto) 2.4 Baso % (Auto) 0.2 Immature Gran # (Auto) 0.02 Neut # (Auto) 4.38 Lymph # (Auto) 0.83 L [place] # (Auto) 0.52 Eos # (Auto) 0.14 Baso # (Auto) 0.01 Anisocytosis Present ESR Sodium 133 L Potassium 4.1 Chloride 102 Carbon Dioxide 27 Anion Gap 4.0 BUN 2 L D Creatinine 0.40 L D Est Cr Clr Drug Dosing 138.8 Est GFR ( Amer) 136.9 Est GFR (Non-Af Amer) 118.1 BUN/Creatinine Ratio 5.7 L Glucose 88 Calcium 8.5 Iron TIBC Ferritin Total Bilirubin 0.5 AST 23 ALT 21 Alkaline Phosphatase 87 C-Reactive Protein Total Protein 6.1 L Albumin 2.7 L Globulin 3.4 Albumin/Globulin Ratio 0.8 L Folate Stool Occult Bld Scrn Vancomycin Trough Medications Administered Current Inpatient Medications Acetaminophen (Tylenol) 650 mg PO Q4H PRN PRN Reason: pain/fever Stop: 10/21/18 20:01 Last Admin: 09/23/18 02:46 Dose: 650 mg Al Hydrox/Mg Hydrox/Simethicone (Maalox) 30 ml PO Q6H PRN PRN Reason: Dyspepsia Stop: 10/21/18 20:01 Bupropion HCl (Wellbutrin-Sr) 200 mg PO BID [facility] Stop: 10/22/18 08:59 Last Admin: 09/23/18 08:26 Dose: 200 mg Calcium Carbonate (Tums) 500 mg PO DAILY PRN PRN Reason: Heartburn Stop: 10/21/18 20:46 Enoxaparin Sodium (Lovenox) 30 mg SQ Q12H [facility] Stop: 10/21/18 20:14 Last Admin: 09/23/18 13:18 Dose: 30 mg Ceftriaxone Sodium 1,000 mg/ (Dextrose) 50 mls @ 100 mls/hr IV DAILY@2200 KATHLEEN; Protocol Stop: 10/01/18 21:59 Last Infusion: 09/22/18 23:20 Dose: Infused Vancomycin HCl 1,000 mg/ (Sodium Chloride) 270 mls @ 125 mls/hr IV Q8H [facility] Stop: 09/25/18 11:59 Last Admin: 09/23/18 13:18 Dose: 125 mls/hr Pantoprazole Sodium 40 mg/ (Syringe) 10 mls @ 5 mls/min IV BID [facility] Stop: 10/23/18 12:29 Last Admin: 09/23/18 13:19 Dose: 5 mls/min Magnesium Hydroxide (Milk Of Magnesia) 30 ml PO Q6H PRN PRN Reason: Constipation Stop: 10/21/18 20:01 Miscellaneous (Remove Nicoderm Patch) 1 ea N/A HS [facility] Stop: 10/22/18 20:59 Last Admin: 09/23/18 06:09 Dose: 1 ea Miscellaneous Information (Consult) 1 ea N/A UD PRN PRN Reason: Consult Stop: 10/21/18 20:26 Nicotine (Nicoderm Cq) 14 mg TD QAM [facility] Stop: 10/22/18 17:59 Last Admin: 09/23/18 08:27 Dose: 14 mg Oxycodone HCl (Roxicodone Immediate Rel) 5 mg PO Q6H PRN PRN Reason: pain Stop: 10/05/18 20:46 Last Admin: 09/23/18 08:31 Dose: 5 mg Polyethylene Glycol (Miralax Powder Packet) 17 gm PO DAILY PRN PRN Reason: Constipation Stop: 10/21/18 20:01 Sennosides (Senokot) 17.2 mg PO HS PRN PRN Reason: constipation Stop: 10/21/18 20:46 Last Admin: 09/21/18 22:36 Dose: 8.6 mg Venlafaxine HCl (Effexor Extended Release) [facility] Stop: 10/22/18 08:59 Last Admin: 09/23/18 08:26 Dose: 150 mg Resident Activity Tracking Resident Involvement: Resident Care Provided Care Provided: Adult Hospital Medicine
[2018-09-23] MEDS: SENNA 8.6 MG TAB PO PRN (22:09)
[2018-09-23] MEDS: cefTRIAXone SODIUM 1,000 MG in DEXTROSE 5% 50 ML IV SCH (22:53)
[2018-09-24] MEDS: OXYCODONE HCL IR 5 MG TAB (IMMEDIATE RELEASE) PO PRN ×3 (00:13→21:12)
[2018-09-24] MEDS: VANCOMYCIN HCL 1,000 MG in SODIUM CHLORIDE 0.9% 250 ML IV SCH ×2 (04:53→12:16)
[2018-09-24] MEDS: ACETAMINOPHEN 325 MG TAB PO PRN ×2 (04:53→08:31)
[2018-09-24 07:08] LABS: Basophils # (auto) 0.02 K/uL (0-0.2); Basophils % (auto) 0.3 %; Eosinophils # (auto) 0.11 K/uL (0-0.5); Eosinophils % (auto) 1.8 %; Hematocrit (blood only) 27.1 % (37-47); Hemoglobin 8.4 g/dL (12.0-16.0); Immature Granulocytes # (auto) 0.02 K/uL (0.00-0.02); Immature Granulocytes % (auto) 0.3 %; Lymphocytes # (auto) 1.05 K/uL (1.2-3.4); Lymphocytes % (auto) 17.4 %; Mean Corpuscular Volume 109.3 fL (80-100); Monocytes # (auto) 0.63 K/uL (0.11-0.59); Monocytes % (auto) 10.5 %; Neutrophils # (auto) 4.19 K/uL (1.4-6.5); Neutrophils % (auto) 69.7 %; Platelet Count 296 K/uL (130-400); RDW Standard Deviation 75.1 fL (36.4-46.3); Red Blood Count 2.48 M/uL (4.2-5.4); White Blood Count 6.02 K/uL (4.8-10.8)
[2018-09-24 07:41] LABS: Albumin Level 2.7 gm/dl (3.4-5.0); BUN Creatinine Ratio 4.9 (10-20); Calcium 8.6 mg/dl (8.5-10.1); Creatinine Clr Calc Pharmacy 113.3 ml/min; Est GFR (Non-African American) 110.5; Potassium 3.6 mmol/L (3.5-5.1)
[2018-09-24 07:44] LABS: Albumin Globulin Ratio 0.8 (0.9-2); Bilirubin,Total 0.4 mg/dl (0.2-1); Globulin 3.5 gm/dl (2.5-4.0); Total Protein 6.2 gm/dl (6.4-8.2)
[2018-09-24 08:10] LABS: Macrocytosis Present
[2018-09-24] MEDS: VENLAFAXINE HCL XR 150 MG CAPXR PO SCH (08:27)
[2018-09-24] MEDS: NICOTINE 14 MG/24 HR PATCH TD SCH (08:27)
[2018-09-24] MEDS: BuPROPion SR 100 MG TABCR PO SCH ×2 (08:28→21:11)
[2018-09-24] MEDS: PANTOprazole 40 MG in SYRINGE 0 ML IV SCH ×2 (09:20→21:11)
[2018-09-24] MEDS: ENOXAPARIN INJ 30 MG/0.3 ML SYR SQ SCH ×2 (09:20→21:11)
[2018-09-24] MEDS ORDERED: VANCOMYCIN TROUGH ONE (11:30)
--- NOTE | 2018-09-24 12:26 | Progress Note ---
Date of Service September 24, 2018 Subjective I have seen and examined the patient, doing well. H/H stable, denies any bleeding. No leukocytosis or evidence of ongoing sepsis. On exam abdomen is soft. Plan: EGD tomorrow and plan for colonoscopy later on based on EGD findings. Continue PPI. NPO after midnight Physical Exam 2 Vital Signs (Past 24 Hours): Last Vital Signs Temp 36.8 C 09/24/18 07:17 Pulse 83 09/24/18 07:17 Resp 20 09/24/18 07:17 BP 154/88 H 09/24/18 07:17 Pulse Ox 97 09/24/18 07:17
--- NOTE | 2018-09-24 12:38 | Family Medicine Progress Note ---
Addendum entered and electronically signed by Ney Thomas DO 09/24/18 13: 48: Addendum (Blank) Addendum September 24, 2018 13:46 D/C Vanco today. Start on PO kelflex or omnicef tomorrow and d/c ceftriaxone. Original Note: Date of Service September 24, 2018 Assessment & Plan (1) Sepsis: 52-year-old female with past medical history of Depression anxiety, COPD, Insomnia, here as a direct admit from outside hospital due to elevated lactate and concern for sepsis status post left total hip surgery on 09/12/2018. 1) Sepsis in setting of 9 days s/p left hip arthroplasty, with +UA in outpatient setting -Etiology unclear and unlikely from hip. -blood cx: NGTD. Urine cx: No growth - Less than 1,000 colonies/mL -per [facility]: sensitive to cefepime, amikacin, cipro, bactrim, Levofloxacin 2) Anemia -last hgb 8.4. Cont trend -FOBT + -GI consult: EGD on Tuesday, IV PPI BID, trend H/H 3) Chest pressure -resolved at present -on admit: sinus tachy, no ST changes -CTA at outside hosp neg for PE - trop initial and outside hosp negative 4) Alcohol use -pt admits two LARGE wine glasses / night -[facility] protocol -folic acid normal, thiamine pending 5) Tobacco Abuse -pt states has been trying to quit smoking, 1ppd -nicotine 14mg patch qAM 6) Depression/anxiety -cont [employer] AND [employer] bupropion and venlafaxine -unsure if abilify is a home medication, need to confirm with pt 7) ADHD -hold adderall 8) COPD -continue home inhalers FULL DVT ppx: lovenox q12h DISPO: med/surg with tele (2) Depression: (3) Anxiety: (4) Attention deficit disorder: (5) Anemia: (6) Elevated lactic acid level: (7) History of total left hip arthroplasty: (8) Incidental lung nodule, > 3mm and < 8mm: 09/21/18 CTA -- Please note her chest CT does note a right upper lobe nodule that is newly identified 5.2 mm in the upper lobe of the right lung, a six- month CT follow-up should be considered. Supervising Physician Co-Signing Physician Notes Attending attestation Pt seen and examined in concert with Dr. Thomas. In agreement with the documented findings as noted in the resident documentation with any exceptions or additions as noted here. Gradually improving left hip pain and able to ambulate short distances with walker without severe discomfort. On examination, S1/S2 nl RRR no MCG. CTAB. Abd NT/ND BS +ve Anemia, acute following surgery with +ve FOBT - GI consultation - pending EGD on Tuesday. Trend H/H - stable presently. Continue PPI. Sepsis - negative cultures to date, previous +ve UCx w/ S. marcessens - d/c vancomycin, narrow from ceftriaxone tomorrow. Depression/anxiety - continue home medications Alcohol use - withdrawal protocol onboard but patient is doing well presently without assistance Tobacco use - NRT patch Else per resident documentation as noted. Subjective Pt found in bed this AM in NAD. Reports no acute overnight events. Pt is ok with plan going forward. Denies chest pain currently but still has little bit of exertional dyspnea. Denies F/N/V/D, redness or warmth of the right hip, dysuria. Tolerating PO intake. No issues voiding. Pt has no other acute concerns or complaints today. Physical Exam 2 Vital Signs (Past 24 Hours): Last Vital Signs Temp 36.8 C 09/24/18 07:17 Pulse 83 09/24/18 07:17 Resp 20 09/24/18 07:17 BP 154/88 H 09/24/18 07:17 Pulse Ox 97 09/24/18 07:17 Constitutional: WD/WN, vitals as above Eyes: PERRL, conjunctivae normal, anicteric sclerae ENMT: external ear and nose normal, oropharynx normal Respiratory: normal respiratory effort, lungs clear to auscultation Cardiovascular: RRR, no murmur, no edema Gastrointestinal (Abdomen): normal bowel sounds, soft, nontender, no hepatosplenomegaly Musculoskeletal: tremors UE b/l R hip bandaged, C/D/I Psychiatric: A+Ox3, euthymic affect Results & Data Laboratory Results Laboratory Results - last 24 hr 09/24/18 09/24/18 09/24/18 06:49 06:49 11:13 WBC 6.02 RBC 2.48 L Hgb 8.4 L Hct 27.1 L MCV 109.3 H MCH 33.9 MCHC 31.0 L RDW Std Deviation 75.1 H RDW Coeff of Lucia 19.0 H Plt Count 296 MPV 8.0 Immature Gran % (Auto) 0.3 Neut % (Auto) 69.7 Lymph % (Auto) 17.4 Davidson % (Auto) 10.5 Eos % (Auto) 1.8 Baso % (Auto) 0.3 Immature Gran # (Auto) 0.02 Neut # (Auto) 4.19 Lymph # (Auto) 1.05 L Davidson # (Auto) 0.63 H Eos # (Auto) 0.11 Baso # (Auto) 0.02 Macrocytosis Present Sodium 136 Potassium 3.6 Chloride 101 Carbon Dioxide 27 Anion Gap 8.0 BUN 2 L Creatinine 0.49 L Est Cr Clr Drug Dosing 113.3 Est GFR ( Amer) 128.0 Est GFR (Non-Af Amer) 110.5 BUN/Creatinine Ratio 4.9 L Glucose 91 Calcium 8.6 Total Bilirubin 0.4 AST 18 ALT 18 Alkaline Phosphatase 83 Total Protein 6.2 L Albumin 2.7 L Globulin 3.5 Albumin/Globulin Ratio 0.8 L Vancomycin Trough 19.6 Medications Administered Current Inpatient Medications Acetaminophen (Tylenol) 650 mg PO Q4H PRN PRN Reason: pain/fever Stop: 10/21/18 20:01 Last Admin: 09/24/18 08:31 Dose: 650 mg Al Hydrox/Mg Hydrox/Simethicone (Maalox) 30 ml PO Q6H PRN PRN Reason: Dyspepsia Stop: 10/21/18 20:01 Bupropion HCl (Wellbutrin-Sr) 200 mg PO BID [facility] Stop: 10/22/18 08:59 Last Admin: 09/24/18 08:28 Dose: 200 mg Calcium Carbonate (Tums) 500 mg PO DAILY PRN PRN Reason: Heartburn Stop: 10/21/18 20:46 Enoxaparin Sodium (Lovenox) 30 mg SQ Q12H [facility] Stop: 10/21/18 20:14 Last Admin: 09/24/18 09:20 Dose: 30 mg Ceftriaxone Sodium 1,000 mg/ (Dextrose) 50 mls @ 100 mls/hr IV DAILY@2200 [facility]; Protocol Stop: 10/01/18 21:59 Last Infusion: 09/23/18 23:23 Dose: 100 mls/hr Vancomycin HCl 1,000 mg/ (Sodium Chloride) 270 mls @ 125 mls/hr IV Q8H [facility] Stop: 09/25/18 11:59 Last Admin: 09/24/18 12:16 Dose: 125 mls/hr Pantoprazole Sodium 40 mg/ (Syringe) 10 mls @ 5 mls/min IV BID [facility] Stop: 10/23/18 12:29 Last Admin: 09/24/18 09:20 Dose: 5 mls/min Magnesium Hydroxide (Milk Of Magnesia) 30 ml PO Q6H PRN PRN Reason: Constipation Stop: 10/21/18 20:01 Miscellaneous (Remove Nicoderm Patch) 1 ea N/A HS [facility] Stop: 10/22/18 20:59 Last Admin: 09/23/18 20:22 Dose: 1 ea Miscellaneous Information (Consult) 1 ea N/A UD PRN PRN Reason: Consult Stop: 10/21/18 20:26 Nicotine ([facility]oderm Cq) [facility] Stop: 10/22/18 17:59 Last Admin: 09/24/18 08:27 Dose: 14 mg Oxycodone HCl (Roxicodone Immediate Rel) 5 mg PO Q6H PRN PRN Reason: pain Stop: 10/05/18 20:46 Last Admin: 09/24/18 00:13 Dose: 5 mg Polyethylene Glycol (Miralax Powder Packet) 17 gm PO DAILY PRN PRN Reason: Constipation Stop: 10/21/18 20:01 Sennosides (Senokot) 17.2 mg PO HS PRN PRN Reason: constipation Stop: 10/21/18 20:46 Last Admin: 09/23/18 22:09 Dose: 8.6 mg Venlafaxine HCl (Effexor Extended Release) 150 mg PO QAM [facility] Stop: 10/22/18 08:59 Last Admin: 09/24/18 08:27 Dose: 150 mg Resident Activity Tracking Resident Involvement: Resident Care Provided Care Provided: Adult Hospital Medicine
[2018-09-24] MEDS: cefTRIAXone SODIUM 1,000 MG in DEXTROSE 5% 50 ML IV SCH (21:11)
[2018-09-25] MEDS: ACETAMINOPHEN 325 MG TAB PO PRN ×2 (00:51→12:56)
[2018-09-25 07:13] LABS: Basophils # (auto) 0.03 K/uL (0-0.2); Basophils % (auto) 0.5 %; Eosinophils # (auto) 0.12 K/uL (0-0.5); Eosinophils % (auto) 2.1 %; Hematocrit (blood only) 28.2 % (37-47); Hemoglobin 9.1 g/dL (12.0-16.0); Immature Granulocytes # (auto) 0.02 K/uL (0.00-0.02); Immature Granulocytes % (auto) 0.3 %; Lymphocytes # (auto) 1.15 K/uL (1.2-3.4); Lymphocytes % (auto) 19.7 %; Mean Corpuscular Hgb Conc 32.3 g/dL (32-36); Mean Corpuscular Volume 108.5 fL (80-100); Mean Platelet Volume 7.8 fL (7.4-10.4); Monocytes # (auto) 0.55 K/uL (0.11-0.59); Monocytes % (auto) 9.4 %; Neutrophils # (auto) 3.96 K/uL (1.4-6.5); Platelet Count 307 K/uL (130-400); RDW Coefficient of Variation 17.8 % (11.5-14.5); RDW Standard Deviation 71.1 fL (36.4-46.3); White Blood Count 5.83 K/uL (4.8-10.8)
[2018-09-25 07:44] LABS: Albumin Level 2.8 gm/dl (3.4-5.0); BUN Creatinine Ratio 6.5 (10-20); Calcium 8.8 mg/dl (8.5-10.1); Creatinine Clr Calc Pharmacy 129.2 ml/min; Est GFR (African American) 133.6; Est GFR (Non-African American) 115.3; Potassium 3.7 mmol/L (3.5-5.1)
[2018-09-25 07:47] LABS: Albumin Globulin Ratio 0.8 (0.9-2); Bilirubin,Total 0.4 mg/dl (0.2-1); Globulin 3.4 gm/dl (2.5-4.0); Total Protein 6.2 gm/dl (6.4-8.2)
[2018-09-25] MEDS: NICOTINE 14 MG/24 HR PATCH TD SCH (08:13)
[2018-09-25] MEDS: VENLAFAXINE HCL XR 150 MG CAPXR PO SCH (08:13)
[2018-09-25] MEDS: PANTOprazole 40 MG in SYRINGE 0 ML IV SCH (08:14)
[2018-09-25] MEDS: BuPROPion SR 100 MG TABCR PO SCH (08:14)
[2018-09-25] MEDS: OXYCODONE HCL IR 5 MG TAB (IMMEDIATE RELEASE) PO PRN (08:16)
[2018-09-25] MEDS ORDERED: ARIPiprazole 5 MG TAB PO SCH (09:00)
[2018-09-25] MEDS: ENOXAPARIN INJ 30 MG/0.3 ML SYR SQ SCH (09:00)
--- NOTE | 2018-09-25 09:04 | Gastroenterology Progress Note ---
Date of Service September 25, 2018 Assessment & Plan (1) Anemia: 52 year old female with melena prior to arrival - this spontaneously resolved, no evidence of ongoing overt GI bleeding, Her H/H improved with PRBC transfusion. Plan for EGD to rule out PUD this AM NPO EGD this AM Continue IV PPI BID Please see report of EGD when completed for additional recommendations. Thank you for allowing us to participate in the care of this patient. Please call with any acute changes, questions or concerns. Please see addendum below with additional recommendation from my supervising physician. (2) Fecal occult blood test positive: Supervising Physician Co-Signing Physician Notes I saw and evaluated the patient. We are planning to do upper endoscopy today for history of melena and suspected prior upper GI bleeding. We discussed the risks to include bleeding, infection, perforation and pain. Subjective Pt was seen and evaluated, chart reviewed. Reports melena x days which resolved spontaneously. Now with brown stool. No emesis nor prior black/bloody emesis. Feels otherwise well. Is NPO for EGD today Constitutional: no fever, no chills and no fatigue Respiratory: no cough and no dyspnea Cardiovascular: no chest pain, no radiating jaw, neck or arm pain and no dyspnea Gastrointestinal: no abdominal pain, no early satiety and no vomiting Physical Exam 2 Vital Signs (Past 24 Hours): Last Vital Signs Temp 36.7 C 09/25/18 07:52 Pulse 85 09/25/18 07:52 Resp 17 09/25/18 07:52 BP 156/91 H 09/25/18 07:52 Pulse Ox 97 09/25/18 07:52 Constitutional: well nourished; no acute distress Respiratory: normal respiratory effort, lungs clear to auscultation Chest (Breasts): normal inspection/palpation of breasts Gastrointestinal (Abdomen): normal bowel sounds, soft, nontender, no hepatosplenomegaly Results & Data Laboratory Results 09/25/18 09/25/18 09/24/18 Range/Units 06:45 06:45 11:13 WBC 5.83 (4.8-10.8) K/uL RBC 2.60 L (4.2-5.4) M/uL Hgb 9.1 L (12.0-16.0) g/dL Hct 28.2 L (37-47) % MCV 108.5 H (80-100) fL MCH 35.0 H (25-34) pg MCHC 32.3 (32-36) g/dL RDW Std Deviation 71.1 H (36.4-46.3) fL RDW Coeff of Lucia 17.8 H (11.5-14.5) % Plt Count 307 (130-400) K/uL MPV 7.8 (7.4-10.4) fL Immature Gran % (Auto) 0.3 % Neut % (Auto) 68.0 % Lymph % (Auto) 19.7 % Hendry % (Auto) 9.4 % Eos % (Auto) 2.1 % Baso % (Auto) 0.5 % Immature Gran # (Auto) 0.02 (0.00-0.02) K/uL Neut # (Auto) 3.96 (1.4-6.5) K/uL Lymph # (Auto) 1.15 L (1.2-3.4) K/uL Hendry # (Auto) 0.55 (0.11-0.59) K/uL Eos # (Auto) 0.12 (0-0.5) K/uL Baso # (Auto) 0.03 (0-0.2) K/uL Sodium 136 (136-145) mmol/L Potassium 3.7 (3.5-5.1) mmol/L Chloride 103 (98-107) mmol/L Carbon Dioxide 26 (21-32) mmol/L Anion Gap 7.0 (3-11) BUN 3 L (7-18) mg/dl Creatinine 0.43 L (0.6-1.2) mg/dl Est Cr Clr Drug Dosing 129.2 ml/min Est GFR ( Amer) 133.6 Est GFR (Non-Af Amer) 115.3 BUN/Creatinine Ratio 6.5 L (10-20) Glucose 82 (70-99) mg/dl Calcium 8.8 (8.5-10.1) mg/dl Total Bilirubin 0.4 (0.2-1) mg/dl AST 16 (15-37) U/L ALT 19 (12-78) U/L Alkaline Phosphatase 85 (45-117) U/L Total Protein 6.2 L (6.4-8.2) gm/dl Albumin 2.8 L (3.4-5.0) gm/dl Globulin 3.4 (2.5-4.0) gm/dl Albumin/Globulin Ratio 0.8 L (0.9-2) Vancomycin Trough 19.6 (See Comment) mcg/ml Crossmatch 09/21/18 Range/Units 21:49 WBC (4.8-10.8) K/uL RBC (4.2-5.4) M/uL Hgb (12.0-16.0) g/dL Hct (37-47) % MCV (80-100) fL MCH (25-34) pg MCHC (32-36) g/dL RDW Std Deviation (36.4-46.3) fL RDW Coeff of Lucia (11.5-14.5) % Plt Count (130-400) K/uL MPV (7.4-10.4) fL Immature Gran % (Auto) % Neut % (Auto) % Lymph % (Auto) % Hendry % (Auto) % Eos % (Auto) % Baso % (Auto) % Immature Gran # (Auto) (0.00-0.02) K/uL Neut # (Auto) (1.4-6.5) K/uL Lymph # (Auto) (1.2-3.4) K/uL Hendry # (Auto) (0.11-0.59) K/uL Eos # (Auto) (0-0.5) K/uL Baso # (Auto) (0-0.2) K/uL Sodium (136-145) mmol/L Potassium (3.5-5.1) mmol/L Chloride (98-107) mmol/L Carbon Dioxide (21-32) mmol/L Anion Gap (3-11) BUN (7-18) mg/dl Creatinine (0.6-1.2) mg/dl Est Cr Clr Drug Dosing ml/min Est GFR ( Amer) Est GFR (Non-Af Amer) BUN/Creatinine Ratio (10-20) Glucose (70-99) mg/dl Calcium (8.5-10.1) mg/dl Total Bilirubin (0.2-1) mg/dl AST (15-37) U/L ALT (12-78) U/L Alkaline Phosphatase (45-117) U/L Total Protein (6.4-8.2) gm/dl Albumin (3.4-5.0) gm/dl Globulin (2.5-4.0) gm/dl Albumin/Globulin Ratio (0.9-2) Vancomycin Trough (See Comment) mcg/ml Crossmatch See Detail
--- NOTE | 2018-09-25 10:29 | History & Physical Bridge Note ---
Date of Service September 25, 2018 History & Physical Bridge Note I have examined the patient, reviewed the History & Physical and in the interval since the performance of the History & Physical I have noted the following changes of clinical significance: no changes noted. We have discussed the risks and benefits of upper endoscopy to include bleeding, infection, perforation and pain.
--- NOTE | 2018-09-25 10:46 | Discharge Summary ---
Date of Service September 25, 2018 Admission HPI Per Admitting Provider 52-year-old female with past medical history of Depression anxiety, COPD, Insomnia, here as a direct admit from outside hospital due to elevated lactate and concern for sepsis status post left total hip surgery on 09/12/2018. Patient had a total revision of the left hip on 09/12/2018, was sent home on 2 aspirin daily for 4 weeks and has been compliant with her medications. She had home health and PT OT visiting her and she was doing well until this morning when she felt more winded and dizzy doing very simple exercises. She does not complain of calf pain or leg swelling. She does endorse some chest pressure intermittently but is currently not feeling this. She states she presented to her PCP a few days after her surgery and was told she had 25,000 bacteria growing in her urine and apparently was given Bactrim per report from the outside hospital. When she presented to the emergency room Patient appeared nontoxic but was found to be tachycardic. She was not febrile, heart rate was 108 not requiring supplemental oxygen. Labs revealed a normal white count, hemoglobin of 8.3, chest x-ray was unremarkable, first troponin negative, CT scan of the chest showed no pulmonary emboli. Lactic acid was remarkable 7.1. CMP was unremarkable. Creatinine 1.01. AST ALT 66/36. Magnesium 1.8. Urinalysis was done however I do not have that result. They started her on IV fluid boluses cefepime and vancomycin and was then decided to be transferred here since for specialist evaluation. Patient is in sinus tach on telemetry rate in the low 100s, Not requiring supplemental oxygen here. Please note her chest CT does note a right upper lobe nodule that is newly identified 5.2 mm in the upper lobe of the right lung, a six-month CT follow-up should be considered. Past medical history: As above Past surgical history: Right mass removed from right upper chest, mass found to be benign however I do not have records of that. Social history: Patient smokes 5 cigarettes/day, drinks 2 glasses of wine per day, no illicit drugs. Home medications:Amphetamine dextroamphetamine 20 mg 1 tab twice daily, venlafaxine 150 mg 1 cap daily, fluticasone Vilanterol 100-25 mcg 1 puff by mouth daily, Vitamin C, vitamin D 5000 units 1 tab q. weekly, albuterol 4 times daily as needed for wheezing, bupropion SR 150 mg 1 tab twice daily, melatonin 3 mg p.o. as needed insomnia, cyanocobalamin 100 mcg 1 tab twice daily. Admission Exam Per Admitting Provider Vitals noted as above and within normal limits with the execption of sinus tachycardia. GENERAL: Awake, alert, well-appearing, in no distress HENT: Normocephalic, atraumatic. EYES: Normal conjunctiva. Sclera non-icteric. EOMI. NECK: Supple. Full range of motion. no JVD RESPIRATORY: Clear to auscultation. CARDIAC: Sinus tachycardia, rate 109. Extremities warm and well perfused. Pulses equal. ABDOMEN: Soft, non-distended. No tenderness to palpation. No rebound or guarding. No masses. Bowel sounds are normal. LOWER EXTREMITIES: Calves are equal size bilaterally and non-tender. No edema. No discoloration. Left hip surgical incision in tact with surrounding dependent bruising, non draining non fluctuant. NEURO: No gross focal motor deficits noted. SKIN: Rash not present. No jaundice noted. Principal Diagnosis Asymptomatic UTI, Anemia Discharge Exam General: Alert, oriented. No acute distress HEENT: NC/AT, PERRL, EOMI, oropharynx moist. Chest: Nontender to palpation. CV: RRR, Normal s1, s2. No murmurs appreciated Resp: Breath sounds clear bilaterally, no increased effort of breathing. No crackles/rhonchi/rales. Abdomen: BS+. Soft, nontender, nondistended. No guarding. No organomegaly appreciated. Extremities: Tremulous upper extremities. No edema lower extremities. Right hip bandaged with some bruising but no warmth or erythema. Discharge Data Allergies Allergy/AdvReac Type Severity Reaction Status Date / Time No Known Allergies Allergy Verified 09/12/18 08:28 Consultations 09/21/18 20:06 Consult Case Management - Discharge Planning Routine 09/21/18 20:56 Consult Orthopedic Surgery Routine 09/22/18 19:00 Consult Gastroenterology Routine Procedures Performed Operation Date: 09/25/18 11:15 <No data on this case meets the specified criteria> Hospital Course (1) Sepsis: 52-year-old female with past medical history of Depression anxiety, COPD, Insomnia, who came in as a direct admit from outside hospital due to elevated lactate and concern for sepsis status post left total hip surgery on 09/12/2018. 1) Concern for Sepsis with +UA in outpatient setting -Pt does not meet criteria for sepsis -Etiology unclear and unlikely from hip. -blood cx: NGTD. Urine cx: No growth - Less than 1,000 colonies/mL -Since cultures negative, and pt currently asymptomatic while not meeting sepsis citeria will NOT transition to oral after stopping IV meds. 2) Anemia -last hgb 9.1 -FOBT + -GI consult: EGD, IV PPI BID, trend H/H -EGD showed: Stomach ulcer, for treatment with twice daily PPI for the next 4-6 weeks, and then likely reduce to daily, likely will need a repeat EGD in about 6 weeks. Implored to stop alcohol and NSAIDs 3) Chest pressure -resolved at present -on admit: sinus tachy, no ST changes -CTA at outside hosp neg for PE - trop initial and outside hosp negative 4) Alcohol use -pt admits two LARGE wine glasses / night -[facility] protocol -folic acid normal, thiamine pending 5) Tobacco Abuse -pt states has been trying to quit smoking, 1ppd -nicotine 14mg patch qAM 6) Depression/anxiety -cont [employer] SOFTWARE [employer] bupropion and venlafaxine -unsure if abilify is a home medication, need to confirm with pt 7) ADHD -hold adderall 8) COPD -continue home inhalers FULL DVT ppx: lovenox q12h DISPO: med/surg with tele (2) Depression: (3) Anxiety: (4) Attention deficit disorder: (5) Anemia: (6) Elevated lactic acid level: (7) History of total left hip arthroplasty: (8) Incidental lung nodule, > 3mm and < 8mm: 09/21/18 CTA -- Please note her chest CT does note a right upper lobe nodule that is newly identified 5.2 mm in the upper lobe of the right lung, a six- month CT follow-up should be considered. Total Time Total Time Spent Total Time Spent (In Minutes): >30 Total Time Includes: Examination of the Patient, Discharge Planning and Medication Reconciliation Discharge Plan Discharge Items Patient Disposition: Home - Self-Care Reason For Visit: POSSIBLE SEPSIS Discharge Diagnosis: Asymptomatic UTI, Anemia Discharge Goals: Decrease discomfort, Improve disease control and Improve function Activity: Resume your previous activity Non-emergency contact: Primary Care Provider Call non-emergency contact if: you have any medication questions Follow-up/Referrals: Edi Hodge DO [Primary Care Provider] - Diet: Regular Addtl Provider Instructions: You were admitted out of concern for a blood infection either as a result of your recent hip surgery or secondary to a urinary tract infection. You were treated with antibiotics and you seem to have improved. You also have an anemia and a fecal occult blood test indicated that you were bleeding on the inside. You were evaluated by gastroenterology with a scope to determine where your bleed occurred. They saw an ulcer. You were treated with a proton pump inhibitor and will be discharged with 6 weeks worth of this medication to use at home. Please STOP using your aspirin and drinking alcohol as these can make your ulcer bleed. You were also watched for signs of alcohol withdrawal while hospitalized. You are being discharged with 60 days worth of Vitamin B1 and Folate/Vit B12. Please continue to take these medications. Please followup with your primary care provider as soon as possible to followup on your hospital stay. You are being discharged with a weeks' worth of proton pump inhibitor to protect your GI tract from further bleeds as well as supplementation of folic acid and thiamine because of your alcohol use. It is VERY important that you follow up with your primary care provider for continued medications and followup. Please decrease your alcohol use and continue to cut down on your cigarette use. Please also continue your home medications. Please go to the nearest emergency room with new onset chest pain, shortness of breath, palpitations, dizziness or episodes of passing out. Prescriptions: New pantoprazole 40 mg tablet,delayed release (DR/EC) 40 mg PO BID 42 Days Qty: 84 RF: 0 thiamine HCl (vitamin B1) 100 mg tablet 100 mg PO TID Qty: 60 RF: 0 vitamin [id number] [Foltrate] 0.5-1 mg tablet 1 tab PO DAILY Qty: 60 RF: 0 Continue multivitamin Tablet 1 tab PO QAM RF: 0 venlafaxine [Effexor XR] 150 mg Capsule,Extended Release 24hr 150 mg PO QAM RF: 0 dextroamphetamine-amphetamine [Adderall] 20 mg Tablet 20 mg PO BID RF: 0 calcium carbonate [Tums] 200 mg calcium (500 mg) Tablet,Chewable 200 mg PO DAILY PRN (Reason: Heartburn) RF: 0 bupropion HCl [Wellbutrin SR] 200 mg Tablet Sustained-Release 12 Hr 400 mg PO QAM RF: 0 aripiprazole [Abilify] 5 mg Tablet 5 mg PO QAM RF: 0 nicotine 14 mg/24 hr Patch 24 Hour 1 patch TRANSDERMAL DAILY RF: 0 albuterol sulfate [Ventolin HFA] 90 mcg/actuation Hfa Aerosol Inhaler 2 puff INHALATION Q6H PRN (Reason: Shortness Of Breath) RF: 0 metoprolol tartrate 25 mg Tablet 25 mg PO BID RF: 0 acetaminophen [Pain Reliever] 500 mg Tablet 1,000 mg PO Q8H PRN (Reason: pain) Qty: 90 RF: 0 aspirin 325 mg Tablet,Delayed Release (Dr/Ec) 325 mg PO BID Qty: 28 RF: 0 celecoxib [Celebrex] 200 mg Capsule 200 mg PO BID PRN (Reason: pain) 14 Days Qty: 28 RF: 0 sennosides [Senokot] 8.6 mg Tablet 17.2 mg PO HS PRN (Reason: constipation) 14 Days Qty: 28 RF: 0 oxycodone 5 mg Tablet 5 mg PO Q6H MDD 6 tabs PRN (Reason: pain) Qty: 30 RF: 0 Stand-Alone Forms: [facility] Discharge Orders: Discharge Order (Routine); Ordered 09/25/18 Ordered By: Mya Denny Admission Data Admit Date/Time: 09/21/18 19:08 Attending Provider: Kee Huerta Admit Provider: Liv Kate Primary Care Provider: Edi Hodge Other Providers: Nish Gallegos Service: Telemetry Other Interventions: Discharge Summary Assessment (RN) Last Done: 09/25/18 14:25 Supervising Physician Co-Signing Physician Notes I personally examined the patient and verified all rader points of history and exam, discussed case, and agree with decision making with Dr Denny. Feeling better, wants to go home. Seen after scope. Discussed alcohol and NSAIDs leading to stomach ulcer, patient noted she would be willing to cut back on drinking but still wanted to go home to have a glass of wine tonight, after discussions of how this would worsen her stomach ulcer she expresses understanding and willingness to quit drinking. Did not have any urinary symptoms. Vitals noted, in general she is in no distress. Normocephalic atraumatic mucous membranes members are moist. Skin shows no rashes pallor or icterus. Breathing is unlabored no accessory muscle use good effort Concern for sepsis�fortunately this appears to have been unfounded. It appears that the entire picture was probably driven by her acute blood loss anemia. Acute blood loss anemia�status post 1 unit transfusion�she is now been stable for days. It is likely that her anemia is a combination of blood loss from her surgery recently, as well as blood loss related to her stomach ulcer. She will be on a PPI, have outpatient follow-up with GI, we implored her to avoid all NSAIDs and alcohol Positive urine culture�it was only 25,000 CFU per mL of Serratia, and she had 0 urinary symptoms. It is highly doubtful that this was anything other than a false positive contaminant. Resident Activity Tracking Resident Involvement: Resident Care Provided Care Provided: Adult Hospital Medicine
[2018-09-25] MEDS ORDERED: LIDOCAINE HCL 2% 2 ML VIAL/AMP(20MG/ML) INFIL ONE (10:48)
[2018-09-25] MEDS ORDERED: PROPOFOL IV EMULSION 10 MG/ML 20 ML VIAL IV ONE (10:48)
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
--- NOTE | 2018-09-25 11:07 | GI REPORT ---
Patient Name: Chelsie Lobo Procedure Date: 09/25/2018 10:55 AM Date of : 1965 Admit Type: Inpatient Age: 52 Gender: Female Attending MD: Celeste Giles DO Procedure: Upper GI endoscopy Providers: Celeste Giles DO Referring MD: Kee Huerta Indications: Melena Medicines: Monitored Anesthesia Care Complications: No immediate complications. Estimated blood loss: None. Estimated Blood Loss: Estimated blood loss was minimal. Procedure: Pre-Anesthesia Assessment: - Prior to the procedure, a History and Physical was performed, and patient medications, allergies and sensitivities were reviewed. The patient's tolerance of previous anesthesia was reviewed. - The risks and benefits of the procedure and the sedation options and risks were discussed with the patient. All questions were answered and informed consent was obtained. - Patient identification and proposed procedure were verified prior to the procedure by the physician, the nurse and the financial project manager. The procedure was verified in the procedure room. - Pre-procedure physical examination revealed no contraindications to sedation. - ASA Grade Assessment: III - A patient with severe systemic disease. - After reviewing the risks and benefits, the patient was deemed in satisfactory condition to undergo the procedure. - The anesthesia plan was to use monitored anesthesia care (MAC). - Immediately prior to administration of medications, the patient was re-assessed for adequacy to receive sedatives. - The heart rate, respiratory rate, oxygen saturations, blood pressure, adequacy of pulmonary ventilation, and response to care were monitored throughout the procedure. - The physical status of the patient was re-assessed after the procedure. After obtaining informed consent, the endoscope was passed under direct vision. Throughout the procedure, the patient's blood pressure, pulse, and oxygen saturations were monitored continuously. The scope was introduced through the mouth, and advanced to the third part of duodenum. The upper GI endoscopy was accomplished without difficulty. The patient tolerated the procedure well. Findings: The upper third of the esophagus and middle third of the esophagus were normal. The Z-line was irregular and was found 38 cm from the incisors. The cardia, gastric fundus, gastric body and incisura were normal. One non-obstructing non-bleeding cratered gastric ulcer with no stigmata of bleeding was found on the lesser curvature of the gastric antrum. The lesion was 20 mm in largest dimension. The examined duodenum was normal. Impression: - Z-line irregular, 38 cm from the incisors. - Non-obstructing non-bleeding gastric ulcer with no stigmata of bleeding. NSAID induced etiology. - Normal examined duodenum. - Normal cardia, gastric fundus, gastric body and incisura. - Normal upper third of esophagus and middle third of esophagus. - No specimens collected. Recommendation: - [facility]. - Advance diet as tolerated today. - Use Protonix (pantoprazole) 40 mg PO BID for 6 weeks then reduce to 1 time daily. Celeste Giles D.O. Celeste Giles, 09/25/2018 11:07:16 AM This report has been signed electronically. Note Initiated On: 09/25/2018 10:55 AM Number of Addenda: 0 I attest to the content of the Intraoperative Record and orders documented therein, exceptions below {[id number]}
--- NOTE | 2018-09-25 11:27 | Anesthesiology Progress Note ---
Date of Service September 25, 2018 Anesthesia Post Procedure Vital Signs Vital Signs: Temp Pulse Pulse Resp BP BP Pulse Ox 09/25/18 11:10 36.8 C 86 16 110/73 93 09/25/18 10:17 37 C 93 H 20 138/89 93 09/25/18 07:52 36.7 C 85 17 156/91 H 97 09/25/18 07:16 78 09/25/18 04:00 36.9 C 96 H 21 135/80 94 09/25/18 01:05 105 H 09/24/18 23:07 36.9 C 101 H 20 137/90 98 09/24/18 18:59 37.5 C 108 H 20 154/98 H 133/90 99 09/24/18 15:29 87 09/24/18 14:41 36.5 C 96 H 20 156/98 H 168/88 H 98 Pain Intensity Left Hip: Pain Intensity: 4 Head: Pain Intensity: 5 Notes Mental Status: alert / awake / arousable and participated in evaluation Patient Amnestic to Procedure: Yes Nausea / Vomiting: adequately controlled Pain: adequately controlled Airway Patency, RR, SpO2: stable & adequate BP & HR: stable & adequate Hydration State: stable & adequate Anesthetic Complications: no major complications apparent
== END 2018-09-25 19:46 | disposition home health service (06) | DRG 811 ==
LOC: 2S 19:08 → SUATTDRO 19:08 → 2N 21:13
DX: Z96.642 Presence of left artificial hip joint; J44.9 Chronic obstructive pulmonary disease, unspecified; Z79.82 Long term (current) use of aspirin; Z79.899 Other long term (current) drug therapy; R07.89 Other chest pain; F41.8 Other specified anxiety disorders; K25.4 Chronic or unspecified gastric ulcer with hemorrhage; F17.210 Nicotine dependence, cigarettes, uncomplicated; D62 Acute posthemorrhagic anemia; F10.20 Alcohol dependence, uncomplicated

== ENCOUNTER 2018-12-16 00:24 | Inpatient (IN) ==
[2018-12-16] MEDS ORDERED: ACETAMINOPHEN 500 MG TAB PO PRN (03:51)
[2018-12-16] MEDS ORDERED: ALBUTEROL HFA 8 GM INHALER INH PRN (03:51)
[2018-12-16] MEDS ORDERED: CALCIUM CARBONATE 500 MG CHEWABLE TAB PO PRN (03:51)
[2018-12-16] MEDS ORDERED: MAGNESIUM HYDROXIDE SUSP 30 ML UDC PO PRN (03:54)
[2018-12-16] MEDS ORDERED: ALUMINUM/MAGNESIUM SUSP 30 ML UDC PO PRN (03:54)
[2018-12-16] MEDS ORDERED: POLYETHYLENE (MIRALAX) 17 GM PACK PO PRN (03:54)
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
[2018-12-16] MEDS ORDERED: chlordiazePOXIDE ALCOHOL WITHDRAWL 25MG PO STA (04:24)
[2018-12-16] MEDS ORDERED: LORazepam 1 MG TAB PO PRN (04:54)
[2018-12-16] MEDS ORDERED: LORazepam 3 MG/6 ML VIAL IV PRN (04:54)
[2018-12-16] MEDS ORDERED: ATIVAN IV ALCOHOL WITHDRAWL IV SCH (05:00)
[2018-12-16] MEDS ORDERED: chlordiazePOXIDE HCl 25 MG CAP PO SCH (05:00)
[2018-12-16] MEDS ORDERED: MULTI-VITAMIN INFUSION 10 ML, THIAMINE HCL 100 MG, FOLIC ACID 1 MG in SODIUM CHLORIDE 0... IV SCH (05:30)
[2018-12-16 06:40] LABS: Hematocrit (blood only) 25.3 % (37-47); Hemoglobin 8.8 g/dL (12.0-16.0); Mean Corpuscular Hgb Conc 34.8 g/dL (32-36); Mean Corpuscular Volume 99.2 fL (80-100); Nucleated RBC # (auto) 0.06 K/uL (0-0); Nucleated RBC % (auto) 1.2 %; RDW Coefficient of Variation 24.2 % (11.5-14.5); RDW Standard Deviation 87.6 fL (36.4-46.3); Red Blood Count 2.55 M/uL (4.2-5.4); White Blood Count 5.31 K/uL (4.8-10.8)
[2018-12-16 06:49] LABS: INR 1.1 (0.9-1.1); Prothrombin Time 11.4 Seconds (9.0-12.0)
[2018-12-16 07:09] LABS: Mean Platelet Volume 8.9 fL (7.4-10.4); Platelet Count 72 K/uL (130-400)
[2018-12-16 07:11] LABS: Albumin Level 2.7 gm/dl (3.4-5.0); Anisocytosis Present; BUN Creatinine Ratio 14.1 (10-20); Basophilic Stippling 1+; Basophils # (auto) 0.01 K/uL (0-0.2); Basophils % (auto) 0.2 %; Calcium 8.2 mg/dl (8.5-10.1); Creatinine Clr Calc Pharmacy 99.8 ml/min; Eosinophils # (auto) 0.03 K/uL (0-0.5); Eosinophils % (auto) 0.6 %; Est GFR (African American) 122.4; Est GFR (Non-African American) 105.6; Immature Granulocytes # (auto) 0.02 K/uL (0.00-0.02); Immature Granulocytes % (auto) 0.4 %; Lymphocytes # (auto) 0.35 K/uL (1.2-3.4); Lymphocytes % (auto) 6.6 %; Magnesium 1.9 mg/dl (1.8-2.4); Monocytes # (auto) 0.54 K/uL (0.11-0.59); Monocytes % (auto) 10.2 %; Neutrophils # (auto) 4.36 K/uL (1.4-6.5); Platelet Estimate Decreased (Normal); Potassium 4.3 mmol/L (3.5-5.1); Target Cells 1+
[2018-12-16 07:14] LABS: Albumin Globulin Ratio 0.8 (0.9-2); Bilirubin,Total 5.4 mg/dl (0.2-1); Globulin 3.3 gm/dl (2.5-4.0); Phosphorus 3.6 mg/dl (2.5-4.9)
[2018-12-16] MEDS ORDERED: D5W AND NSS 1,000 ML IV SCH (08:15)
[2018-12-16 08:23] LABS: Folate (Folic Acid) > 24.00 ng/ml (>5.38); Vitamin B12 > 2000 pg/ml (211-911)
[2018-12-16] MEDS ORDERED: BuPROPion SR 100 MG TABCR PO SCH (09:00)
[2018-12-16] MEDS ORDERED: VENLAFAXINE HCL XR 150 MG CAPXR PO SCH (09:00)
[2018-12-16] MEDS ORDERED: THIAMINE HCL 100 MG TAB PO SCH (09:00)
[2018-12-16 09:33] LABS: Amphetamines+Metham, Urine Neg (Neg); Barbiturates, Urine Neg (Neg); Benzodiazepine, Urine Neg (Neg); Cocaine, Urine Neg (Neg); MDMA (Ecstacy), Urine Pos (Neg); Methadone, Urine Neg (Neg); Opiate, Urine Pos (Neg); Phencyclidine, Urine Neg (Neg)
[2018-12-16] MEDS: METOPROLOL TARTRATE 25 MG TAB PO SCH ×2 (09:55→22:26)
[2018-12-16] MEDS: PANTOprazole 40 MG TAB PO SCH ×2 (09:55→22:27)
[2018-12-16] MEDS: MULTIVITAMIN TAB PO SCH (09:55)
[2018-12-16] MEDS: ARIPiprazole 5 MG TAB PO SCH (09:55)
[2018-12-16] MEDS: VITAMIN B COMPLEX TAB PO SCH (09:55)
[2018-12-16] MEDS: AMPHETAMINE ASP/SULF/DEXTRAMPH 10 MG TAB PO SCH ×2 (10:37→22:54)
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
[2018-12-16] MEDS: chlordiazePOXIDE HCl 25 MG CAP PO SCH ×4 (11:27→22:31)
[2018-12-16] MEDS: LORazepam 2 MG/4 ML VIAL IV PRN (12:01)
--- NOTE | 2018-12-16 12:38 | XRay Report ---
XR hip LT min 2V CLINICAL HISTORY: possible left hip dislocation pain COMPARISON: 10/09/2018 DISCUSSION: Superior dislocation of the patient's left hip arthroplasty. Acetabular cup appears to be intact. There is significant superior migration estimated 6 cm. No evidence for fracture. There is no evidence for soft tissue swelling. IMPRESSION: Dislocation left hip arthroplasty. Superior migration of the femur and femoral prosthetic of approximately 6 cm. The above report was generated using voice recognition software. It may contain grammatical, syntax or spelling errors. Electronically signed by: Yaron Centeno M.D. 12/16/2018 12:37 PM
--- NOTE | 2018-12-16 12:55 | Hospitalist Progress Note ---
Date of Service December 16, 2018 Assessment & Plan (1) Delirium tremens: - Presented for dislocation of left hip following fall at home; currently with DTs, upgraded to ICU for further support. - Increase Librium to 50 mg q4hr; Ativan q4hr prn per protocol. - Received Banana bag; continue Thiamine 300 mg TID & Vitamin B complex. - D5 + NS at 80 cc/hr. - CIWA/AWSS protocol ordered. - Telemetry with ICU monitoring; fall precautions. - Drug screen +opiates (pt. reported taking Oxycontin at home for pain) and ectasy (may be false positive). (2) Hip dislocation, left: - S/p left total hip on 09/12/18; pt. reports she slipped off chair at home, XR shows dislocation of left hip arthroplasty with superior migration of the femur and femoral prosthetic of 6 cm. - Orthopedics consulted for intervention --plan to reduce dislocation under anesthesia in the AM after she is more stabilized (3) Acute alcoholic hepatitis: - LFTs are trending down, will continue to monitor frequently. - No indication for IV steroid treatment. - Previous LFTs in Sep 2018 were all WNL. - Abd US at outside hospital showed chronic hepatocellular disease. - Tylenol level is pending (was send out lab) -- consider treatment with NAC protocol, discussed with Dr. Lima. -dc all tylenol on OCT (4) Lactic acidosis: - Lactic acid level was 6 at outside hospital, now improved to 2.9. - Receiving IV fluids at 80 cc/hr. - DTs treatment as noted above. (5) Hyponatremia: - Na level 122 at outside hospital in setting of ETOH abuse, potomania. - Now improved to 125; will monitor q4hr. - Minimize IV fluids; NaCl 1 gm BID. (6) Attention deficit disorder: - hold Adderall while hospitalized, no need for this in hospital (7) Anxiety: - venlafaxine and wellbutrin were both placed on hold for now (8) Depression: - Continue home Abilify as prescribed. - Holding Welbutrin and Effexor. (9) Alcohol abuse: Alcohol dependence, with withdrawal - Reports drinking 2-3 glasses of wine per day, but her cousin reported to the RN today that she drinks more like 2.5L of wine daily - ETOH level was 287 at outside hospital. - DTs treatment as noted above. - B12 level >2,000, Folate level >24. (10) Hypertension: - Continue Metoprolol as prescribed. (11) COPD (chronic obstructive pulmonary disease): - No evidence of acute exacerbation. - Smokes 1/2 PPD -- may require nicotine patch. - Continue albuterol prn. (12) PUD (peptic ulcer disease): - Noted to have gastric ulcer on EGD in Sep 2018, was non bleeding and 20 mm in dimension. - Continue PPI BID. Did complete course of Carafate PO. - Monitor CBC closely in setting of ETOH abuse; avoid all NSAIDs. - Will need repeat EGD following resolution of acute issues (was due for repeat EGD in October, has been delayed) (13) Thrombocytopenia: - In setting of ETOH abuse, hypersplenism. - Plt count decreased to 72, previously ~300. - Will continue Heparin ppx with close monitoring of levels. (14) Anemia: - Baseline hgb prior to surgery in Aug 2018 was ~12-13, started to trend down post op. - Hgb currently ~8.5-9. - Most recent iron studies were completed in Sep 2018; consider repeat labs. (15) Pulmonary nodule: - 5.2 mm nodule in RUL noted on chest CT in Sep 2018. - Will need 6 month follow up imaging. - Encourage tobacco cessation. (16) DVT prophylaxis: - Heparin ppx (close monitoring of plt count), will need to hold for procedure. Dispo: ICU for monitoring of DTs Supervising Physician Co-Signing Physician Notes EWELINA Supervision Note: I personally saw and examined the patient. I verified all rader points and agree with EWELINA Encarnacion with the following exceptions and/or additions: Pt seen after transfer to the ICU and is resting. She does wake up and briefly say hello. Daughter at the bedside provides more history-reports her mom has been nonambulatory for about 2 weeks-she has been urinating in a urinal inher chair and having BMs in [employer] and changing herself without getting out of the chair. Her mom's cousin has been providing the EtOH for the patient. Reports her mom has been drinking daily for the last 1-2 months. Vitals reviewed Older than stated age, NAD, shaking all over at times edentulous tachy, reg rhythm no resp distress or tachypnea Ext 2+ DP pulses bilat, cap refill and sensation to lt touch intact in feet and legs bilat, left hip with deformity, LLE shortened and internally rotated, able to wiggle toes on left foot 53 yo female with EtOH dependence, depression/anxiety, here with left hip prosthesis dislocation and hyponatremia with EtOH withdrawal -librium taper, ativan prn -has severe B1 deficiency from previous admission labs--> replacing thiamine -pain control for hip and to be relocated under anesthesia in the AM by Ortho- appreciate management -appreciate Administrative Representative management of DTs in case of need for intubation and Precedex vs ativan gtt follow labs frequently for hyponatremia -EtOH hepatitis--> follow labs, discriminant function score 7, no steroids indicated -question if took tylenol but thinks only took oxycontin and EtOH at this point, JOSE ARMANDO level pending-d/w Administrative Representative who does not think NAC would be useful at this point in time Subjective Pt. had increased tremors today but was answering questions appropriately. Received Ativan 3 mg IV without improvement in DTs. She states she drinks 2-3 glasses of chardonnay per day and smokes 1/2 PPD cigarettes. Was evaluated by ICU, will be upgraded for further care and evaluation in setting of DTs. Review of Systems Review of Systems: Other (Limited due to cognitive status ) Constitutional: no fever, no chills, no body aches and no weakness Respiratory: no dyspnea and no dyspnea on exertion Cardiovascular: no chest pain Gastrointestinal: no nausea Neurologic: + confusion Physical Exam Physical Exam: General: Appears stated age, poor hygiene. In no acute distress. HEENT: NC/AT; PERRLA with EOMI; [place] conjunctiva, MMM. No erythema of posterior pharynx Neck: Supple and nontender Cardiac: RRR w/o murmurs, gallops or rubs Lungs: CTA bilaterally Abdomen: Bowel normoactive X 4; Nontender to palpation Extremities: Warm. No edema present. Very tremulous in upper extremities. Neuro: No focal weakness; answers all questions appropriately. Skin: No rash Results & Data Vital Signs (Past 12 Hours) Vital Signs Temp Pulse Pulse Pulse Pulse Resp BP 12/16/18 09:39 105 H 12/16/18 07:15 36.8 C 115 H 20 139/91 12/16/18 06:34 36.6 C 115 H 22 140/89 12/16/18 05:06 36.8 C 135 H 130 H 22 169/110 H 12/16/18 03:05 36.8 C 104 H 20 167/131 H Pulse Ox 12/16/18 09:39 12/16/18 07:15 95 12/16/18 06:34 94 12/16/18 05:06 96 12/16/18 03:05 94 Laboratory Results 12/16/18 12/16/18 12/16/18 Range/Units Unknown 11:37 08:28 WBC (4.8-10.8) K/uL RBC (4.2-5.4) M/uL Hgb (12.0-16.0) g/dL Hct (37-47) % MCV (80-100) fL MCH (25-34) pg MCHC (32-36) g/dL RDW Std Deviation (36.4-46.3) fL RDW Coeff of Lucia (11.5-14.5) % Plt Count (130-400) K/uL MPV (7.4-10.4) fL Immature Gran % (Auto) % Neut % (Auto) % Lymph % (Auto) % [place] % (Auto) % Eos % (Auto) % Baso % (Auto) % Immature Gran # (Auto) (0.00-0.02) K/uL Neut # (Auto) (1.4-6.5) K/uL Lymph # (Auto) (1.2-3.4) K/uL [place] # (Auto) (0.11-0.59) K/uL Eos # (Auto) (0-0.5) K/uL Baso # (Auto) (0-0.2) K/uL Absolute Nucleated RBC (0-0) K/uL Nucleated RBC % (auto) % Platelet Estimate (Normal) Basophilic Stippling Anisocytosis Target Cells PT (9.0-12.0) Seconds INR (0.9-1.1) Sodium 125 L (136-145) mmol/L Potassium (3.5-5.1) mmol/L Chloride (98-107) mmol/L Carbon Dioxide (21-32) mmol/L Anion Gap (3-11) BUN (7-18) mg/dl Creatinine (0.6-1.2) mg/dl Est Cr Clr Drug Dosing ml/min Est GFR ( Amer) Est GFR (Non-Af Amer) BUN/Creatinine Ratio (10-20) Glucose (70-99) mg/dl Osmolality (280-300) mOsm/kg Lactate (0.4-2.0) mmol/L Calcium (8.5-10.1) mg/dl Phosphorus (2.5-4.9) mg/dl Magnesium (1.8-2.4) mg/dl Total Bilirubin (0.2-1) mg/dl AST (15-37) U/L ALT (12-78) U/L Alkaline Phosphatase (45-117) U/L Total Protein (6.4-8.2) gm/dl Albumin (3.4-5.0) gm/dl Globulin (2.5-4.0) gm/dl Albumin/Globulin Ratio (0.9-2) Vitamin B12 (211-911) pg/ml Folate (>5.38) ng/ml Urine Osmolality (500-800) mOsm/kg Nasal Screen MRSA (PCR) Positive A (Negative) Salicylates (2.8-20) mg/dl Urine Opiates Screen (Neg) U Codeine Confrm GC/MS Ur Morphine (GC/MS) Ur Hydrocodone (GC/MS) Ur Norhydrocodone Ur Noroxycodone Urine Oxycodone (GC/MS) U Oxymorphone GC/MS Ur Methadone, Qual (Neg) Ur Hydromorphone (GC/MS) Acetaminophen (10-30) ug/ml Urine Barbiturates (Neg) Ur Phencyclidine (PCP) (Neg) U Amphetamin/Meth Scrn (Neg) MDMA (Ecstasy) Screen (Neg) U MDMA (Ecstasy), Quant U Benzodiazepines Scrn (Neg) Ur Cocaine Metabolite (Neg) U Marijuana (THC) Screen (Neg) Hepatitis C Ab Screen (Neg) Miscellaneous Test Pending Miscellaneous Test 2 Pending 12/16/18 12/16/18 12/16/18 Range/Units 08:28 07:40 07:40 WBC (4.8-10.8) K/uL RBC (4.2-5.4) M/uL Hgb (12.0-16.0) g/dL Hct (37-47) % MCV (80-100) fL MCH (25-34) pg MCHC (32-36) g/dL RDW Std Deviation (36.4-46.3) fL RDW Coeff of Lucia (11.5-14.5) % Plt Count (130-400) K/uL MPV (7.4-10.4) fL Immature Gran % (Auto) % Neut % (Auto) % Lymph % (Auto) % [place] % (Auto) % Eos % (Auto) % Baso % (Auto) % Immature Gran # (Auto) (0.00-0.02) K/uL Neut # (Auto) (1.4-6.5) K/uL Lymph # (Auto) (1.2-3.4) K/uL [place] # (Auto) (0.11-0.59) K/uL Eos # (Auto) (0-0.5) K/uL Baso # (Auto) (0-0.2) K/uL Absolute Nucleated RBC (0-0) K/uL Nucleated RBC % (auto) % Platelet Estimate (Normal) Basophilic Stippling Anisocytosis Target Cells PT (9.0-12.0) Seconds INR (0.9-1.1) Sodium (136-145) mmol/L Potassium (3.5-5.1) mmol/L Chloride (98-107) mmol/L Carbon Dioxide (21-32) mmol/L Anion Gap (3-11) BUN (7-18) mg/dl Creatinine (0.6-1.2) mg/dl Est Cr Clr Drug Dosing ml/min Est GFR ( Amer) Est GFR (Non-Af Amer) BUN/Creatinine Ratio (10-20) Glucose (70-99) mg/dl Osmolality (280-300) mOsm/kg Lactate (0.4-2.0) mmol/L Calcium (8.5-10.1) mg/dl Phosphorus (2.5-4.9) mg/dl Magnesium (1.8-2.4) mg/dl Total Bilirubin (0.2-1) mg/dl AST (15-37) U/L ALT (12-78) U/L Alkaline Phosphatase (45-117) U/L Total Protein (6.4-8.2) gm/dl Albumin (3.4-5.0) gm/dl Globulin (2.5-4.0) gm/dl Albumin/Globulin Ratio (0.9-2) Vitamin B12 (211-911) pg/ml Folate (>5.38) ng/ml Urine Osmolality (500-800) mOsm/kg Nasal Screen MRSA (PCR) (Negative) Salicylates (2.8-20) mg/dl Urine Opiates Screen (Neg) U Codeine Confrm GC/MS Pending Ur Morphine (GC/MS) Pending Ur Hydrocodone (GC/MS) Pending Ur Norhydrocodone Pending Ur Noroxycodone Pending Urine Oxycodone (GC/MS) Pending U Oxymorphone GC/MS Pending Ur Methadone, Qual (Neg) Ur Hydromorphone (GC/MS) Pending Acetaminophen (10-30) ug/ml Urine Barbiturates (Neg) Ur Phencyclidine (PCP) (Neg) U Amphetamin/Meth Scrn (Neg) MDMA (Ecstasy) Screen (Neg) U MDMA (Ecstasy), Quant Pending U Benzodiazepines Scrn (Neg) Ur Cocaine Metabolite (Neg) U Marijuana (THC) Screen (Neg) Hepatitis C Ab Screen (Neg) Miscellaneous Test Miscellaneous Test 2 12/16/18 12/16/18 12/16/18 Range/Units 07:40 07:40 06:15 WBC (4.8-10.8) K/uL RBC (4.2-5.4) M/uL Hgb (12.0-16.0) g/dL Hct (37-47) % MCV (80-100) fL MCH (25-34) pg MCHC (32-36) g/dL RDW Std Deviation (36.4-46.3) fL RDW Coeff of Lucia (11.5-14.5) % Plt Count (130-400) K/uL MPV (7.4-10.4) fL Immature Gran % (Auto) % Neut % (Auto) % Lymph % (Auto) % [place] % (Auto) % Eos % (Auto) % Baso % (Auto) % Immature Gran # (Auto) (0.00-0.02) K/uL Neut # (Auto) (1.4-6.5) K/uL Lymph # (Auto) (1.2-3.4) K/uL [place] # (Auto) (0.11-0.59) K/uL Eos # (Auto) (0-0.5) K/uL Baso # (Auto) (0-0.2) K/uL Absolute Nucleated RBC (0-0) K/uL Nucleated RBC % (auto) % Platelet Estimate (Normal) Basophilic Stippling Anisocytosis Target Cells PT (9.0-12.0) Seconds INR (0.9-1.1) Sodium (136-145) mmol/L Potassium (3.5-5.1) mmol/L Chloride (98-107) mmol/L Carbon Dioxide (21-32) mmol/L Anion Gap (3-11) BUN (7-18) mg/dl Creatinine (0.6-1.2) mg/dl Est Cr Clr Drug Dosing ml/min Est GFR ( Amer) Est GFR (Non-Af Amer) BUN/Creatinine Ratio (10-20) Glucose (70-99) mg/dl Osmolality (280-300) mOsm/kg Lactate (0.4-2.0) mmol/L Calcium (8.5-10.1) mg/dl Phosphorus (2.5-4.9) mg/dl Magnesium (1.8-2.4) mg/dl Total Bilirubin (0.2-1) mg/dl AST (15-37) U/L ALT (12-78) U/L Alkaline Phosphatase (45-117) U/L Total Protein (6.4-8.2) gm/dl Albumin (3.4-5.0) gm/dl Globulin (2.5-4.0) gm/dl Albumin/Globulin Ratio (0.9-2) Vitamin B12 > 2000 H (211-911) pg/ml Folate > 24.00 (>5.38) ng/ml Urine Osmolality 566 (500-800) mOsm/kg Nasal Screen MRSA (PCR) (Negative) Salicylates (2.8-20) mg/dl Urine Opiates Screen Pos H (Neg) U Codeine Confrm GC/MS Ur Morphine (GC/MS) Ur Hydrocodone (GC/MS) Ur Norhydrocodone Ur Noroxycodone Urine Oxycodone (GC/MS) U Oxymorphone GC/MS Ur Methadone, Qual Neg (Neg) Ur Hydromorphone (GC/MS) Acetaminophen (10-30) ug/ml Urine Barbiturates Neg (Neg) Ur Phencyclidine (PCP) Neg (Neg) U Amphetamin/Meth Scrn Neg (Neg) MDMA (Ecstasy) Screen Pos H (Neg) U MDMA (Ecstasy), Quant U Benzodiazepines Scrn Neg (Neg) Ur Cocaine Metabolite Neg (Neg) U Marijuana (THC) Screen Neg (Neg) Hepatitis C Ab Screen (Neg) Miscellaneous Test Miscellaneous Test 2 12/16/18 12/16/18 12/16/18 Range/Units 06:15 06:15 06:15 WBC (4.8-10.8) K/uL RBC (4.2-5.4) M/uL Hgb (12.0-16.0) g/dL Hct (37-47) % MCV (80-100) fL MCH (25-34) pg MCHC (32-36) g/dL RDW Std Deviation (36.4-46.3) fL RDW Coeff of Lucia (11.5-14.5) % Plt Count (130-400) K/uL MPV (7.4-10.4) fL Immature Gran % (Auto) % Neut % (Auto) % Lymph % (Auto) % [place] % (Auto) % Eos % (Auto) % Baso % (Auto) % Immature Gran # (Auto) (0.00-0.02) K/uL Neut # (Auto) (1.4-6.5) K/uL Lymph # (Auto) (1.2-3.4) K/uL [place] # (Auto) (0.11-0.59) K/uL Eos # (Auto) (0-0.5) K/uL Baso # (Auto) (0-0.2) K/uL Absolute Nucleated RBC (0-0) K/uL Nucleated RBC % (auto) % Platelet Estimate (Normal) Basophilic Stippling Anisocytosis Target Cells PT 11.4 (9.0-12.0) Seconds INR 1.1 (0.9-1.1) Sodium (136-145) mmol/L Potassium (3.5-5.1) mmol/L Chloride (98-107) mmol/L Carbon Dioxide (21-32) mmol/L Anion Gap (3-11) BUN (7-18) mg/dl Creatinine (0.6-1.2) mg/dl Est Cr Clr Drug Dosing ml/min Est GFR ( Amer) Est GFR (Non-Af Amer) BUN/Creatinine Ratio (10-20) Glucose (70-99) mg/dl Osmolality 264 L (280-300) mOsm/kg Lactate 2.9 H* (0.4-2.0) mmol/L Calcium (8.5-10.1) mg/dl Phosphorus (2.5-4.9) mg/dl Magnesium (1.8-2.4) mg/dl Total Bilirubin (0.2-1) mg/dl AST (15-37) U/L ALT (12-78) U/L Alkaline Phosphatase (45-117) U/L Total Protein (6.4-8.2) gm/dl Albumin (3.4-5.0) gm/dl Globulin (2.5-4.0) gm/dl Albumin/Globulin Ratio (0.9-2) Vitamin B12 (211-911) pg/ml Folate (>5.38) ng/ml Urine Osmolality (500-800) mOsm/kg Nasal Screen MRSA (PCR) (Negative) Salicylates (2.8-20) mg/dl Urine Opiates Screen (Neg) U Codeine Confrm GC/MS Ur Morphine (GC/MS) Ur Hydrocodone (GC/MS) Ur Norhydrocodone Ur Noroxycodone Urine Oxycodone (GC/MS) U Oxymorphone GC/MS Ur Methadone, Qual (Neg) Ur Hydromorphone (GC/MS) Acetaminophen (10-30) ug/ml Urine Barbiturates (Neg) Ur Phencyclidine (PCP) (Neg) U Amphetamin/Meth Scrn (Neg) MDMA (Ecstasy) Screen (Neg) U MDMA (Ecstasy), Quant U Benzodiazepines Scrn (Neg) Ur Cocaine Metabolite (Neg) U Marijuana (THC) Screen (Neg) Hepatitis C Ab Screen (Neg) Miscellaneous Test Miscellaneous Test 2 04/27/19 04/27/19 04/27/19 Range/Units 06:15 06:15 06:15 WBC 5.31 (4.8-10.8) K/uL RBC 2.55 L (4.2-5.4) M/uL Hgb 8.8 L (12.0-16.0) g/dL Hct 25.3 L (37-47) % MCV 99.2 (80-100) fL MCH 34.5 H (25-34) pg MCHC 34.8 (32-36) g/dL RDW Std Deviation 87.6 H (36.4-46.3) fL RDW Coeff of Lucia 24.2 H (11.5-14.5) % Plt Count 72 L (130-400) K/uL MPV 8.9 (7.4-10.4) fL Immature Gran % (Auto) 0.4 % Neut % (Auto) 82.0 % Lymph % (Auto) 6.6 % [place] % (Auto) 10.2 % Eos % (Auto) 0.6 % Baso % (Auto) 0.2 % Immature Gran # (Auto) 0.02 (0.00-0.02) K/uL Neut # (Auto) 4.36 (1.4-6.5) K/uL Lymph # (Auto) 0.35 L (1.2-3.4) K/uL [place] # (Auto) 0.54 (0.11-0.59) K/uL Eos # (Auto) 0.03 (0-0.5) K/uL Baso # (Auto) 0.01 (0-0.2) K/uL Absolute Nucleated RBC 0.06 H (0-0) K/uL Nucleated RBC % (auto) 1.2 % Platelet Estimate Decreased (Normal) Basophilic Stippling 1+ Anisocytosis Present Target Cells 1+ PT (9.0-12.0) Seconds INR (0.9-1.1) Sodium 125 L (136-145) mmol/L Potassium 4.3 (3.5-5.1) mmol/L Chloride 91 L (98-107) mmol/L Carbon Dioxide 22 (21-32) mmol/L Anion Gap 12.0 H (3-11) BUN 8 (7-18) mg/dl Creatinine 0.55 L (0.6-1.2) mg/dl Est Cr Clr Drug Dosing 99.8 ml/min Est GFR ( Amer) 122.4 Est GFR (Non-Af Amer) 105.6 BUN/Creatinine Ratio 14.1 (10-20) Glucose 71 (70-99) mg/dl Osmolality (280-300) mOsm/kg Lactate (0.4-2.0) mmol/L Calcium 8.2 L (8.5-10.1) mg/dl Phosphorus 3.6 (2.5-4.9) mg/dl Magnesium 1.9 (1.8-2.4) mg/dl Total Bilirubin 5.4 H (0.2-1) mg/dl AST 232 H (15-37) U/L ALT 127 H (12-78) U/L Alkaline Phosphatase 438 H (45-117) U/L Total Protein 6.0 L (6.4-8.2) gm/dl Albumin 2.7 L (3.4-5.0) gm/dl Globulin 3.3 (2.5-4.0) gm/dl Albumin/Globulin Ratio 0.8 L (0.9-2) Vitamin B12 (211-911) pg/ml Folate (>5.38) ng/ml Urine Osmolality (500-800) mOsm/kg Nasal Screen MRSA (PCR) (Negative) Salicylates (2.8-20) mg/dl Urine Opiates Screen (Neg) U Codeine Confrm GC/MS Ur Morphine (GC/MS) Ur Hydrocodone (GC/MS) Ur Norhydrocodone Ur Noroxycodone Urine Oxycodone (GC/MS) U Oxymorphone GC/MS Ur Methadone, Qual (Neg) Ur Hydromorphone (GC/MS) Acetaminophen (10-30) ug/ml Urine Barbiturates (Neg) Ur Phencyclidine (PCP) (Neg) U Amphetamin/Meth Scrn (Neg) MDMA (Ecstasy) Screen (Neg) U MDMA (Ecstasy), Quant U Benzodiazepines Scrn (Neg) Ur Cocaine Metabolite (Neg) U Marijuana (THC) Screen (Neg) Hepatitis C Ab Screen Neg (Neg) Miscellaneous Test Miscellaneous Test 2
[2018-12-16] MEDS: D5W AND NSS 1,000 ML IV SCH (13:28)
[2018-12-16] MEDS: THIAMINE HCL 100 MG TAB PO SCH ×2 (14:13→22:26)
[2018-12-16] MEDS: SODIUM CHLORIDE 1 GM TABLET PO SCH ×2 (14:13→22:27)
[2018-12-16 16:15] LABS: BUN Creatinine Ratio 19.9 (10-20); Calcium 8.4 mg/dl (8.5-10.1); Creatinine Clr Calc Pharmacy 137.2 ml/min; Est GFR (African American) 135.9; Est GFR (Non-African American) 117.3; Potassium 3.9 mmol/L (3.5-5.1)
--- NOTE | 2018-12-16 20:35 | Consultation Report ---
DATE OF CONSULTATION: 12/16/2018 REQUESTING PHYSICIAN: Wilenr THEODORE and Edi Hodge REASON FOR CONSULTATION: Dislocation of total hip arthroplasty. Apparently, the patient in her state of usual health. She had a left total hip arthroplasty performed by my partner Dr. Nahum Chauhan in 08/2018. She had been in her home and she has a history of alcohol abuse. Apparently she was treating some of her pain with alcohol as well as some OxyContins. Apparently she had a fall at home, unable to ambulate, severe pain and was then transferred to [facility] where she was diagnosed with a hip dislocation and then transferred to [facility]. PAST MEDICAL HISTORY: Significant for alcohol abuse, asthma, SUHA, COPD, depression, reflux, hypertension, osteoarthritis and sciatica. PAST SURGICAL HISTORY: Colonoscopy, left hip surgery for fracture and then subsequent left total hip arthroplasty 08/2017 as well as hip removal of hardware, chest mass excision and history tooth extraction. ALLERGIES: No known drug allergies. MEDICATIONS: Please note the medications in her medical history. SOCIAL HISTORY: She smokes daily, 5 cigarettes per day. Uses wine daily. Denies drug use. She lives with her family in a trailer. EMPLOYMENT HISTORY: Unknown due to poor historian. PHYSICAL EXAMINATION: GENERAL: The patient is alert and oriented to person, possibly place. She is tremulous. Answers some questions. Some response to verbal stimulus. Appears to be conversant on occasion. EXTREMITIES: The left hip is obviously dislocated with internal rotation and shortening and limitation in active and passive range of motion. The skin incision is well healed. Dorsalis pedis and posterior pulses are 2/4. Feet are warm. Cap refill is brisk. Radiographs obtained today demonstrate an anterior superior dislocation of the left total hip. IMPRESSION: Left total hip arthroplasty dislocation status post fall due to alcohol abuse. RECOMMENDATION: Discussed the patient's care with the meterman today as well as the anesthesiologist. She will be stabilized for left hip reduction under anesthesia tomorrow. We will schedule the case as appropriate. Thank you for the opportunity to consult in the care of this patient.
[2018-12-16] MEDS: HEPARIN SOD 5,000 UNIT/0.5 ML VIAL SQ SCH (22:27)
[2018-12-17 00:10] LABS: Albumin Level 2.5 gm/dl (3.4-5.0); BUN Creatinine Ratio 15.5 (10-20); Calcium 8.4 mg/dl (8.5-10.1); Creatinine Clr Calc Pharmacy 156.8 ml/min; Est GFR (Non-African American) 122.5; Potassium 3.5 mmol/L (3.5-5.1)
[2018-12-17 00:13] LABS: Albumin Globulin Ratio 0.8 (0.9-2); Bilirubin,Total 5.1 mg/dl (0.2-1); Globulin 3.2 gm/dl (2.5-4.0); Total Protein 5.7 gm/dl (6.4-8.2)
[2018-12-17] MEDS: chlordiazePOXIDE HCl 25 MG CAP PO SCH ×5 (03:53→21:46)
[2018-12-17] MEDS: D5W AND NSS 1,000 ML IV SCH (04:48)
[2018-12-17 04:58] LABS: Hematocrit (blood only) 21.9 % (37-47); Hemoglobin 7.5 g/dL (12.0-16.0); Mean Corpuscular Hgb Conc 34.2 g/dL (32-36); Mean Corpuscular Volume 102.3 fL (80-100); Nucleated RBC # (auto) 0.03 K/uL (0-0); Nucleated RBC % (auto) 0.9 %; RDW Coefficient of Variation 24.2 % (11.5-14.5); RDW Standard Deviation 88.4 fL (36.4-46.3); Red Blood Count 2.14 M/uL (4.2-5.4); White Blood Count 3.76 K/uL (4.8-10.8)
[2018-12-17 05:00] LABS: Mean Platelet Volume 8.6 fL (7.4-10.4); Platelet Count 75 K/uL (130-400)
[2018-12-17 05:08] LABS: INR 1.1 (0.9-1.1); Prothrombin Time 11.4 Seconds (9.0-12.0)
[2018-12-17 05:16] LABS: Albumin Level 2.4 gm/dl (3.4-5.0); BUN Creatinine Ratio 13.1 (10-20); Creatinine Clr Calc Pharmacy 152.5 ml/min; Est GFR (African American) 140.7; Est GFR (Non-African American) 121.4; Potassium 3.5 mmol/L (3.5-5.1)
[2018-12-17 05:40] LABS: Albumin Globulin Ratio 0.7 (0.9-2); Bilirubin,Total 4.5 mg/dl (0.2-1); Ferritin 823.3 ng/ml (8-388); Globulin 3.3 gm/dl (2.5-4.0); Total Protein 5.7 gm/dl (6.4-8.2)
[2018-12-17] MEDS ORDERED: fentaNYL citrate 100 MCG/2 ML VIAL ONE (07:05)
[2018-12-17] MEDS ORDERED: MIDAZOLAM HCL 1 MG/ML 2ML VIAL ONE (07:05)
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
[2018-12-17] MEDS ORDERED: ATROPINE SULFATE 0.1 MG/ML 10ML SYR IV PRN (07:34)
[2018-12-17] MEDS ORDERED: fentaNYL citrate 100 MCG/2 ML VIAL IV PRN (07:34)
[2018-12-17] MEDS ORDERED: ePHEDrine sulfate 50 MG/ML AMP IV PRN (07:34)
--- NOTE | 2018-12-17 07:47 | History & Physical Bridge Note ---
Date of Service December 17, 2018 History & Physical Bridge Note I have examined the patient, reviewed the History & Physical and in the interval since the performance of the History & Physical I have noted the following changes of clinical significance: no changes noted
[2018-12-17] MEDS ORDERED: LIDOCAINE HCL 2% 2 ML VIAL/AMP(20MG/ML) INFIL ONE (07:56)
[2018-12-17] MEDS ORDERED: PROPOFOL IV EMULSION 10 MG/ML 20 ML VIAL IV ONE (07:56)
[2018-12-17] MEDS ORDERED: ONDANSETRON INJ 2 MG/ML 2 ML VIAL ONE (08:35)
--- NOTE | 2018-12-17 08:52 | Post Operative Brief Note ---
Immediate Post Op Note v1 Date of Surgery December 17, 2018 Pre & Post Diagnosis Operation Date: 12/17/18 07:00 Pre-Op Diagnosis: Left total hip arthroplasty dislocation status post fall due to alcohol abuse Post-Op Diagnosis: Left total hip arthroplasty dislocation status post fall due to alcohol abuse Procedure Operation Date: 12/17/18 07:00 Actual Procedures p Closed Reduction Left Total Hip(Left) - Russ Mccoy DO Surgeon Russ Mccoy DO [employer] Samina Liang PA-C Estimated Blood Loss 0 Findings Consistent with Post-Op Diagnosis Specimens None Drains Reed Catheter (in place from inpatient room, clean yellow urine noted) Anesthesia Type General Complications none Disposition Accompanied Patient To Recovery: No Disposition: Recovery Room
--- NOTE | 2018-12-17 09:09 | Fluoroscopy Report ---
FL hip LT 2-3V HISTORY: 53 years-old Female DISLOCATION status post left hip dislocation COMPARISON: Left hip radiographs 12/16/2018 TECHNIQUE: 2 spot fluoroscopic images of the left hip were obtained utilizing 289.8 seconds fluorosco py time FINDINGS: Left hip total joint arthroplasty is noted with satisfactory alignment. No acute fracture identified. IMPRESSION: Fluoroscopic assistance as above. Please see procedural report for further. The above report was generated using voice recognition software. It may contain grammatical, syntax o r spelling errors. Electronically signed by: Felix Richter M.D. 12/17/2018 9:08 AM
--- NOTE | 2018-12-17 09:24 | Anesthesiology Progress Note ---
Date of Service December 17, 2018 Anesthesia Post Procedure Vital Signs Vital Signs: Temp Pulse Resp BP Pulse Ox 12/17/18 09:15 97.5 F L 94 H 112/94 100 12/17/18 09:10 97 H 115/92 100 12/17/18 09:06 97.5 F L 98 H 113/85 98 12/17/18 09:05 96 H 100 12/17/18 09:02 91 H 99 12/17/18 09:01 91 H 113/76 99 12/17/18 09:00 92 H 96 12/17/18 08:58 101 H 108/82 97 12/17/18 08:57 91 H 12/17/18 06:02 142/117 H 86 L 12/17/18 06:00 82 L 12/17/18 05:00 93 H 133/84 99 12/17/18 04:02 89 99 12/17/18 04:01 89 109/82 99 12/17/18 04:00 90 99 12/17/18 03:00 98 H 121/87 99 12/17/18 02:00 89 128/90 100 12/17/18 01:01 94 H 116/82 99 12/17/18 01:00 93 H 99 12/17/18 00:02 103 H 144/80 H 98 12/17/18 00:00 88 98 12/16/18 23:30 95 H 99 12/16/18 23:01 96 H 128/84 98 12/16/18 23:00 96 H 100 12/16/18 22:30 105 H 99 12/16/18 22:00 101 H 129/101 H 100 12/16/18 21:30 99 H 99 12/16/18 21:01 99 H 132/90 97 12/16/18 21:00 101 H 99 12/16/18 20:30 102 H 98 12/16/18 20:00 97 H 142/84 H 95 12/16/18 19:31 98 H 12/16/18 19:30 98 H 98 12/16/18 19:00 100 H 127/91 98 12/16/18 18:30 100 H 97 12/16/18 18:01 96 H 106/78 98 12/16/18 18:00 99 H 98 12/16/18 17:30 106 H 97 12/16/18 17:01 97 H 118/78 99 12/16/18 17:00 93 H 98 12/16/18 16:30 100 H 98 12/16/18 16:00 95 H 123/77 98 12/16/18 15:30 95 H 98 12/16/18 15:00 97 H 122/71 98 12/16/18 14:30 97 H 97 12/16/18 14:01 88 97/67 L 92 12/16/18 14:00 88 92 12/16/18 13:30 88 91 12/16/18 13:01 94 H 114/80 87 L 12/16/18 13:00 92 H 92 12/16/18 12:31 111 H 119/79 93 12/16/18 12:30 99 H 93 12/16/18 12:03 93 H 95 12/16/18 12:00 87 93 12/16/18 11:30 98.8 F 94 H 18 128/84 95 12/16/18 11:01 96 H 119/90 97 12/16/18 11:00 96 H 96 12/16/18 10:56 97 H 115/77 96 12/16/18 10:30 100 H 12/16/18 10:00 122 H 12/16/18 09:39 105 H 12/16/18 09:30 124 H Pain Intensity Hip: Pain Intensity: 3 Notes Mental Status: alert / awake / arousable and participated in evaluation Patient Amnestic to Procedure: Yes Nausea / Vomiting: adequately controlled Pain: adequately controlled Airway Patency, RR, SpO2: stable & adequate BP & HR: stable & adequate Hydration State: stable & adequate Anesthetic Complications: no major complications apparent and Pt Satisfied with anesthetic care
[2018-12-17] MEDS: SODIUM CHLORIDE 1 GM TABLET PO SCH ×2 (09:32→20:01)
[2018-12-17] MEDS: PANTOprazole 40 MG TAB PO SCH ×2 (09:32→20:01)
[2018-12-17] MEDS: MULTIVITAMIN TAB PO SCH (09:32)
[2018-12-17] MEDS: VITAMIN B COMPLEX TAB PO SCH (09:32)
[2018-12-17] MEDS: ARIPiprazole 5 MG TAB PO SCH (09:32)
[2018-12-17] MEDS: METOPROLOL TARTRATE 25 MG TAB PO SCH ×2 (09:32→20:01)
[2018-12-17] MEDS: THIAMINE HCL 100 MG TAB PO SCH ×3 (09:33→20:01)
[2018-12-17] MEDS ORDERED: SUCCINYLCHOLINE 100MG/5ML SYR ONE (09:41)
--- NOTE | 2018-12-17 10:14 | XRay Report ---
XR hip RT 2-3V w pelvis HISTORY: 53 years-old Female postop attempted ASHLEIGH reduction left hip total joint arthroplasty. COMPARISON: Left hip fluoroscopic images of same day at 8:02 AM. Left hip radiographs 12/16/2018 and TECHNIQUE: AP view of the pelvis with 2 views of the left hip FINDINGS: Left hip total joint arthroplasty. The femoral component overlies the acetabular cup without kevin di slocation, however the femoral head does not appear to be completely seated within the acetabular cup . No acute fracture. Mild right hip posterior arthritis. Demineralized appearance of the bones. No op aque foreign body. IMPRESSION: Left hip total joint arthroplasty without dislocation or fracture. The femoral head component however appears to be only partially within the acetabular cup. Correlate clinically to exclude subluxation. The above report was generated using voice recognition software. It may contain grammatical, syntax o r spelling errors. Electronically signed by: Felix Richter M.D. 12/17/2018 10:12 AM
[2018-12-17] MEDS: LORazepam 2 MG/4 ML VIAL IV PRN (10:19)
[2018-12-17] MEDS ORDERED: TRAMADOL HCL 50 MG TABLET PO PRN (10:41)
--- NOTE | 2018-12-17 11:55 | Critical Care Progress Note ---
Date of Service December 17, 2018 Assessment & Plan (1) Alcohol abuse: Impression: 1. Delirium tremens. 2. Left hip dislocation. I did not see imaging in our system. 3. Acute liver failure, her baseline bilirubin and transaminases were normal 10 weeks ago. 4. Lactic acidosis, type II. 5. Hyponatremia secondary to [place]omania. 6. ADD. 7. Alcoholism. 8. Hypertension. 9. COPD, active smoker. 10. Thrombocytopenia, alcohol related. Hypersplenism. 11. Anemia, the patient has history of peptic ulcer disease status post EGD showing PUD. Plan: 1. Continue Librium to 50 mg p.o. every 4 hours. 2. Ativan to 1/2 mg every 4 hours based on symptoms. 3. Hold off on aggressive treatment as the patient remains lucid. She remains oriented. 4. Continue thiamine to 300 mg p.o. 3 times daily. 5. Given her persistent hyponatremia, and not been able to take enough oral, I have changed her IV fluid to 80 mL an hour. Watch for hyponatremia. 6. Oral sodium chloride, discontinue in a.m. 7. Orthopedic consult appreciated, status post closed reduction of left hip arthroplasty dislocation. 8. Watch her platelet count, continue with heparin subcu. 9. Discussed with the staff on rounds in details. 10. Watch for hematocrits trending down, the patient has history of GI bleeding diagnosed recently. 11. Appreciate Dr. Knight input, patient will be transferred to monitored bed. Critical care time spent with the patient was 45 minutes. Subjective The patient just returned from the OR, she denies any shortness of breath, she does have minimal pain mainly in the hip area, she continues to have tremor, however she is oriented x3 and she follow commands if she has been reoriented. Denies any nausea no diarrhea no abdominal pain reported. Review of Systems Review of Systems: Review of system including 10 systems was unremarkable except for the above. Physical Exam Physical Exam: Vital signs are stable, S1-S2 regular rate and rhythm, distant breath sounds bilaterally, abdomen is benign soft nontender, bowel sounds are positive, left hip has been braced, no edema, neurologically apart from the tremor, she was nonfocal, although it was difficult to assess completely. Dry mucosa, no visual disturbances, no rash. Results & Data Vital Signs (Past 12 Hours) Vital Signs Temp Pulse BP Pulse Ox 12/17/18 09:47 94 H 113/97 99 12/17/18 09:31 93 H 107/74 100 12/17/18 09:30 36.4 C L 86 107/74 100 12/17/18 09:25 94 H 100 12/17/18 09:20 96 H 100 12/17/18 09:18 95 H 112/94 100 12/17/18 09:15 36.4 C L 94 H 112/94 100 12/17/18 09:10 97 H 115/92 100 12/17/18 09:06 36.4 C L 98 H 113/85 98 12/17/18 09:05 96 H 100 12/17/18 09:02 91 H 99 12/17/18 09:01 91 H 113/76 99 12/17/18 09:00 92 H 96 12/17/18 08:58 101 H 108/82 97 12/17/18 08:57 91 H 12/17/18 06:02 142/117 H 86 L 12/17/18 06:00 82 L 12/17/18 05:00 93 H 133/84 99 12/17/18 04:02 89 99 12/17/18 04:01 89 109/82 99 12/17/18 04:00 90 99 12/17/18 03:00 98 H 121/87 99 12/17/18 02:00 89 128/90 100 12/17/18 01:01 94 H 116/82 99 12/17/18 01:00 93 H 99 12/17/18 00:02 103 H 144/80 H 98 12/17/18 00:00 88 98 Laboratory Results Labs were reviewed which showed pancytopenia, hematocrit dropping possibly dilutional. Total bilirubin and LFTs has been elevated but slightly trending down. Diagnostic Findings Hip x-ray showed partial reduction of the left hip arthroplasty.
[2018-12-17 12:16] LABS: Hematocrit (blood only) 21.5 % (37-47); Hemoglobin 7.4 g/dL (12.0-16.0); Mean Corpuscular Hgb Conc 34.4 g/dL (32-36); Mean Corpuscular Volume 104.4 fL (80-100); Nucleated RBC # (auto) 0.04 K/uL (0-0); Nucleated RBC % (auto) 1.1 %; RDW Coefficient of Variation 23.5 % (11.5-14.5); RDW Standard Deviation 88.4 fL (36.4-46.3); Red Blood Count 2.06 M/uL (4.2-5.4); White Blood Count 3.76 K/uL (4.8-10.8)
[2018-12-17] MEDS ORDERED: SODIUM CHLORIDE 0.9% 250 ML IV PRN (12:21)
--- NOTE | 2018-12-17 12:36 | Hospitalist Progress Note ---
Date of Service December 17, 2018 Assessment & Plan (1) Delirium tremens: - Currently being treated for DTs, improving overall; drinks 2.5L boxed wine per day at home per family member. - Begin to taper Librium, 50 mg q6hr; Ativan per protocol. - Continue Thiamine 300 mg TID & Vitamin B complex. - D5 + NS at 100 cc/hr -- hold in setting of blood transfusion. - CIWA/AWSS protocol. - Drug screen +opiates (pt. reported taking Oxycontin at home for pain) and ecstasy (may be false positive). (2) Hip dislocation, left: - S/p left total hip on 09/12/18; she slipped off chair at home, XR showed dislocation of left hip arthroplasty with superior migration of the femur and femoral prosthetic of 6 cm. - Orthopedics consulted for intervention, s/p closed reduction of left hip today. - Tramadol 50 mg q6hr prn pain (caution due to side effect of hyponatremia) & apply Lidocaine patch to area; Oxycodone 5 mg q6hr prn. - Avoid NSAIDs in setting of PUD and Tylenol due to elevated LFTs. (3) Acute alcoholic hepatitis: - LFTs remain stable but elevated. - No indication for IV steroid treatment. - Previous LFTs in Sep 2018 were all WNL. - Abd US at outside hospital showed chronic hepatocellular disease. - Tylenol level is pending (was send out lab) -- no indication for treatment with NAC. - Hepatitis panel is pending. - Hold all Tylenol containing products. (4) Lactic acidosis: - Lactic acid level was 6 at outside hospital, trended down. - Received IV fluids. - DTs treatment as noted above. (5) Hyponatremia: - Na level 122 at outside hospital in setting of ETOH abuse, potomania. - Now improved to 129; will monitor q8hr. - NaCl 1 gm BID -- d/c on 12/18/18 in the AM. (6) Attention deficit disorder: - Holding Adderall while hospitalized. (7) Anxiety: -Restart venlafaxine and Wellbutrin (8) Depression: - Continue home Abilify as prescribed. -Okay to restart Welbutrin and Effexor which were held while in ICU. (9) Alcohol abuse: - ETOH dependence at home; currently being treated for DTs as noted above. - Pt. drinks 2.5L boxed wine per day per daughter; pt. admitted to drinking 2-3 glasses per day. - ETOH level was 287 at outside hospital. - B12 level >2,000, Folate level >24. (10) Hypertension: - Continue Metoprolol as prescribed. (11) COPD (chronic obstructive pulmonary disease): - No evidence of acute exacerbation. - Smokes 1/2 PPD -- will order nicotine patch. - Continue albuterol prn. (12) PUD (peptic ulcer disease): - Noted to have gastric ulcer on EGD in Sep 2018, was non-bleeding and 20 mm in dimension. - Continue PPI BID. - Avoid all NSAID use. - Will need repeat EGD following resolution of acute issues (was due for repeat EGD in October, has been delayed) (13) Thrombocytopenia: - In setting of ETOH abuse, hypersplenism. - Plt count decreased, monitor qAM. - Will continue Heparin ppx with close monitoring of levels. (14) Anemia: - Baseline hgb prior to surgery in Aug 2018 was ~12-13, started to trend down post op. - Hgb trending down, was 7.4 -- will transfuse 2 units pRBCs. - Most recent iron studies were completed in Sep 2018; repeat studies showed anemia of chronic disease. (15) Pulmonary nodule: - 5.2 mm nodule in RUL noted on chest CT in Sep 2018. - Will need 6 month follow up imaging. - Encourage tobacco cessation. (16) DVT prophylaxis: - Heparin ppx (close monitoring of plt count) -- holding for procedure. Dispo: Downgrade to med/surg with telemetry, continue treatment of DTs with Librium taper. Supervising Physician Co-Signing Physician Notes PA Supervision Note: PA Supervision Note: I did not personally see or examine the patient today, but I verified all rader points of EWELINA Encarnacion's assessment and plan with the following exceptions/additions: 53 yo female with EtOH dependence, depression/anxiety, here with left hip prosthesis dislocation and hyponatremia with EtOH withdrawal Now status post relocation of hip Alcohol withdrawal is improving -Continue with Librium taper, ativan prn -has severe B1 deficiency from previous admission labs--> replacing thiamine -pain control for hip follow labs frequently for hyponatremia which is likely secondary to Potomania -EtOH hepatitis--> improving, follow labs, discriminant function score 7, no steroids indicated Subjective Pt. was more alert today, tremors now improved. She complained of pain in left hip following procedure, rated pain as a 10/10 on pain scale. Denies chest pain, SOB, N/V, diarrhea or constipation. Will be downgraded from ICU today. Review of Systems Review of Systems: All systems reviewed & are unremarkable except as noted in HPI & below Constitutional: no fever, no chills, no fatigue and no weakness Respiratory: no cough, no dyspnea, no dyspnea on exertion and no wheezing Cardiovascular: no chest pain, no palpitations and no edema Gastrointestinal: no abdominal pain, no nausea, no vomiting, no constipation and no diarrhea/loose stools Genitourinary: no difficulty urinating Musculoskeletal: + joint pain (Left Hip ); no back pain Integumentary: no non-healing lesions Allergy / Immunological: no rash Physical Exam Physical Exam: General: Appears stated age, in no acute distress. HEENT: NC/AT; PERRLA with EOMI; [place] conjunctiva, MMM. No erythema of posterior pharynx Neck: Supple and nontender Cardiac: RRR Lungs: CTA bilaterally Abdomen: Bowel normoactive X 4; Nontender to palpation Extremities: Warm. No edema present. Tremors improved, are very mild. Neuro: No focal weakness; answers all questions appropriately. Skin: No rash Results & Data Vital Signs (Past 12 Hours) Vital Signs Temp Pulse Pulse Resp BP BP Pulse Ox 12/17/18 11:22 36.9 C 88 20 120/81 100 12/17/18 09:47 94 H 113/97 99 12/17/18 09:31 93 H 107/74 100 12/17/18 09:30 36.4 C L 86 107/74 100 12/17/18 09:25 94 H 100 12/17/18 09:20 96 H 100 12/17/18 09:18 95 H 112/94 100 12/17/18 09:15 36.4 C L 94 H 112/94 100 12/17/18 09:10 97 H 115/92 100 12/17/18 09:06 36.4 C L 98 H 113/85 98 12/17/18 09:05 96 H 100 12/17/18 09:02 91 H 99 12/17/18 09:01 91 H 113/76 99 12/17/18 09:00 92 H 96 12/17/18 08:58 101 H 108/82 97 12/17/18 08:57 91 H 12/17/18 06:02 142/117 H 86 L 12/17/18 06:00 82 L 12/17/18 05:00 93 H 133/84 99 12/17/18 04:02 89 99 12/17/18 04:01 89 109/82 99 12/17/18 04:00 90 99 12/17/18 03:00 98 H 121/87 99 12/17/18 02:00 89 128/90 100 12/17/18 01:01 94 H 116/82 99 12/17/18 01:00 93 H 99 Laboratory Results 12/17/18 12/17/18 12/17/18 Range/Units 11:49 11:49 11:49 WBC 3.76 L (4.8-10.8) K/uL RBC 2.06 L (4.2-5.4) M/uL Hgb 7.4 L (12.0-16.0) g/dL Hct 21.5 L (37-47) % MCV 104.4 H (80-100) fL MCH 35.9 H (25-34) pg MCHC 34.4 (32-36) g/dL RDW Std Deviation 88.4 H (36.4-46.3) fL RDW Coeff of Lucia 23.5 H (11.5-14.5) % Plt Count Pending (130-400) K/uL MPV (7.4-10.4) fL Absolute Nucleated RBC 0.04 H (0-0) K/uL Nucleated RBC % (auto) 1.1 % PT (9.0-12.0) Seconds INR (0.9-1.1) Sodium (136-145) mmol/L Potassium (3.5-5.1) mmol/L Chloride (98-107) mmol/L Carbon Dioxide (21-32) mmol/L Anion Gap (3-11) BUN (7-18) mg/dl Creatinine (0.6-1.2) mg/dl Est Cr Clr Drug Dosing ml/min Est GFR ( Amer) Est GFR (Non-Af Amer) BUN/Creatinine Ratio (10-20) Glucose (70-99) mg/dl POC Glucose (70-99) Calcium (8.5-10.1) mg/dl Iron (35-150) mcg/dl TIBC (250-450) mcg/dl Transferrin (200-360) mg/dl Transferrin % Sat (15-50) % Ferritin (8-388) ng/ml Total Bilirubin (0.2-1) mg/dl AST (15-37) U/L ALT (12-78) U/L Alkaline Phosphatase (45-117) U/L Total Protein (6.4-8.2) gm/dl Albumin (3.4-5.0) gm/dl Globulin (2.5-4.0) gm/dl Albumin/Globulin Ratio (0.9-2) Nasal Screen MRSA (PCR) (Negative) Hepatitis A IgM Ab Pending Hep Bs Antigen Pending Hep B Core IgM Ab Pending Hepatitis C Antibody Pending 12/17/18 12/17/18 12/17/18 Range/Units 11:48 04:41 04:41 WBC 3.76 L (4.8-10.8) K/uL RBC 2.14 L (4.2-5.4) M/uL Hgb 7.5 L (12.0-16.0) g/dL Hct 21.9 L (37-47) % MCV 102.3 H (80-100) fL MCH 35.0 H (25-34) pg MCHC 34.2 (32-36) g/dL RDW Std Deviation 88.4 H (36.4-46.3) fL RDW Coeff of Lucia 24.2 H (11.5-14.5) % Plt Count 75 L (130-400) K/uL MPV 8.6 (7.4-10.4) fL Absolute Nucleated RBC 0.03 H (0-0) K/uL Nucleated RBC % (auto) 0.9 % PT 11.4 (9.0-12.0) Seconds INR 1.1 (0.9-1.1) Sodium (136-145) mmol/L Potassium (3.5-5.1) mmol/L Chloride (98-107) mmol/L Carbon Dioxide (21-32) mmol/L Anion Gap (3-11) BUN (7-18) mg/dl Creatinine (0.6-1.2) mg/dl Est Cr Clr Drug Dosing ml/min Est GFR ( Amer) Est GFR (Non-Af Amer) BUN/Creatinine Ratio (10-20) Glucose (70-99) mg/dl POC Glucose 107 H (70-99) Calcium (8.5-10.1) mg/dl Iron (35-150) mcg/dl TIBC (250-450) mcg/dl Transferrin (200-360) mg/dl Transferrin % Sat (15-50) % Ferritin (8-388) ng/ml Total Bilirubin (0.2-1) mg/dl AST (15-37) U/L ALT (12-78) U/L Alkaline Phosphatase (45-117) U/L Total Protein (6.4-8.2) gm/dl Albumin (3.4-5.0) gm/dl Globulin (2.5-4.0) gm/dl Albumin/Globulin Ratio (0.9-2) Nasal Screen MRSA (PCR) (Negative) Hepatitis A IgM Ab Hep Bs Antigen Hep B Core IgM Ab Hepatitis C Antibody 12/17/18 12/16/18 12/16/18 Range/Units 04:41 23:26 15:31 WBC (4.8-10.8) K/uL RBC (4.2-5.4) M/uL Hgb (12.0-16.0) g/dL Hct (37-47) % MCV (80-100) fL MCH (25-34) pg MCHC (32-36) g/dL RDW Std Deviation (36.4-46.3) fL RDW Coeff of Lucia (11.5-14.5) % Plt Count (130-400) K/uL MPV (7.4-10.4) fL Absolute Nucleated RBC (0-0) K/uL Nucleated RBC % (auto) % PT (9.0-12.0) Seconds INR (0.9-1.1) Sodium 129 L 130 L 129 L (136-145) mmol/L Potassium 3.5 3.5 3.9 (3.5-5.1) mmol/L Chloride 97 L 96 L 96 L (98-107) mmol/L Carbon Dioxide 27 25 24 (21-32) mmol/L Anion Gap 5.0 9.0 8.0 (3-11) BUN 5 L 5 L 8 (7-18) mg/dl Creatinine 0.36 L 0.35 L 0.40 L (0.6-1.2) mg/dl Est Cr Clr Drug Dosing 152.5 156.8 137.2 ml/min Est GFR ( Amer) 140.7 142.0 135.9 Est GFR (Non-Af Amer) 121.4 122.5 117.3 BUN/Creatinine Ratio 13.1 15.5 19.9 (10-20) Glucose 70 75 83 (70-99) mg/dl POC Glucose (70-99) Calcium 8.0 L 8.4 L 8.4 L (8.5-10.1) mg/dl Iron 78 (35-150) mcg/dl TIBC 146 L (250-450) mcg/dl Transferrin 118 L (200-360) mg/dl Transferrin % Sat 47 (15-50) % Ferritin 823.3 H (8-388) ng/ml Total Bilirubin 4.5 H 5.1 H (0.2-1) mg/dl AST 223 H 237 H (15-37) U/L ALT 113 H 118 H (12-78) U/L Alkaline Phosphatase 390 H 377 H (45-117) U/L Total Protein 5.7 L 5.7 L (6.4-8.2) gm/dl Albumin 2.4 L 2.5 L (3.4-5.0) gm/dl Globulin 3.3 3.2 (2.5-4.0) gm/dl Albumin/Globulin Ratio 0.7 L 0.8 L (0.9-2) Nasal Screen MRSA (PCR) (Negative) Hepatitis A IgM Ab Hep Bs Antigen Hep B Core IgM Ab Hepatitis C Antibody 12/16/18 12/16/18 12/16/18 Range/Units 15:31 11:37 10:57 WBC (4.8-10.8) K/uL RBC (4.2-5.4) M/uL Hgb (12.0-16.0) g/dL Hct (37-47) % MCV (80-100) fL MCH (25-34) pg MCHC (32-36) g/dL RDW Std Deviation (36.4-46.3) fL RDW Coeff of Lucia (11.5-14.5) % Plt Count (130-400) K/uL MPV (7.4-10.4) fL Absolute Nucleated RBC (0-0) K/uL Nucleated RBC % (auto) % PT (9.0-12.0) Seconds INR (0.9-1.1) Sodium 128 L 125 L (136-145) mmol/L Potassium (3.5-5.1) mmol/L Chloride (98-107) mmol/L Carbon Dioxide (21-32) mmol/L Anion Gap (3-11) BUN (7-18) mg/dl Creatinine (0.6-1.2) mg/dl Est Cr Clr Drug Dosing ml/min Est GFR ( Amer) Est GFR (Non-Af Amer) BUN/Creatinine Ratio (10-20) Glucose (70-99) mg/dl POC Glucose (70-99) Calcium (8.5-10.1) mg/dl Iron (35-150) mcg/dl TIBC (250-450) mcg/dl Transferrin (200-360) mg/dl Transferrin % Sat (15-50) % Ferritin (8-388) ng/ml Total Bilirubin (0.2-1) mg/dl AST (15-37) U/L ALT (12-78) U/L Alkaline Phosphatase (45-117) U/L Total Protein (6.4-8.2) gm/dl Albumin (3.4-5.0) gm/dl Globulin (2.5-4.0) gm/dl Albumin/Globulin Ratio (0.9-2) Nasal Screen MRSA (PCR) Positive A (Negative) Hepatitis A IgM Ab Hep Bs Antigen Hep B Core IgM Ab Hepatitis C Antibody
[2018-12-17 12:37] LABS: Platelet Count 89 K/uL (130-400)
[2018-12-17 13:00] LABS: Hepatitis B Surface Antigen Neg (Neg)
[2018-12-17 13:28] LABS: Hepatitis C IgG 13Yrs+Old_Rflx Neg (Neg)
[2018-12-17] MEDS: NICOTINE 14 MG/24 HR PATCH TD SCH (14:04)
[2018-12-17] MEDS: LIDOCAINE 5% 1 PATCH TD SCH (14:06)
--- NOTE | 2018-12-17 16:31 | Operative Report ---
DATE OF OPERATION: 12/17/2018 PREOPERATIVE DIAGNOSIS: Left total hip arthroplasty dislocation. POSTOPERATIVE DIAGNOSIS: Left total hip arthroplasty dislocation. PROCEDURE: Closed reduction left total hip arthroplasty, dislocation under anesthesia. SURGEON: Dr. Mccoy. COSMETICIAN APPRENTICE: Jw Liang PA-C, who was present for patient positioning, padding and prepping. He was present through the critical portions of the case including assistance with traction, counter traction, reduction of the hip dislocation and transport of the patient to recovery. There was no incision made, so there was no management of retractors and there was no closure of any wounds. It was a closed case. ANESTHESIA: General endotracheal tube. SPECIMENS: None. DRAINS: None. COMPLICATIONS: None. BLOOD LOSS: Zero. PERTINENT HISTORY: This is a 53-year-old female who had a previous total hip arthroplasty by Dr. Chauhan in 08/2018. Apparently, the patient has a history of alcohol abuse and was drinking to control some discomfort and mixed that with some OxyContin. She had a fall, unable to ambulate, transferred to [facility]. She was diagnosed with a hip dislocation after an arthroplasty on the left side and was then transferred to [facility]. She was found to be in delirium tremens and after stabilization by the medical team and the family psychologist, the patient was then scheduled for closed reduction of her dislocated arthroplasty as indicated. DESCRIPTION OF PROCEDURE: All potential risks, benefits, complications, alternatives, rehab potential for incomplete relief of symptoms, need for further surgery, DVT, PE, , persistent pain, swelling, scarring, weakness, neurovascular injury, wound complications, bone fracture or persistent dislocation of the prosthesis or prosthetic fracture discussed with the patient. The patient decided to proceed with the procedure as indicated. The patient was taken to operative suite, placed supine on the OR table. After review of consent and identification of operative site, the patient was anesthetized and endotracheal tube was placed, padded post and gentle manual traction was applied to the left hip. The padded post was placed in the perineum for countertraction. The physician's fws faculty assistant assistance was required to stabilize the patient's pelvis as well as another behavioral health tech to stabilize the pelvis. Gentle reduction maneuver was attempted on several attempts and then finally had semi-concentric reduction on both AP, oblique and lateral views with the C-arm fluoroscope. The femoral head component appeared to have been displaced presumably by soft tissue within the polyethylene liner. The patient was maintained in abduction and adduction pillow was applied. The patient was then transferred back to her bed. She was awakened and taken to recovery in stable condition. Range of motion was noted to be markedly improved and near normal after reduction. Also noted to have improved and essentially normal leg lengths. I attest to the content of the Intraoperative Record and any orders documented therein. Any exceptions are noted below. MTDD
[2018-12-17 21:27] LABS: Hemoglobin 10.9 g/dL (12.0-16.0)
[2018-12-17 21:34] LABS: BUN Creatinine Ratio 16.4 (10-20); Calcium 8.3 mg/dl (8.5-10.1); Creatinine Clr Calc Pharmacy 148.4 ml/min; Est GFR (African American) 139.4; Est GFR (Non-African American) 120.3; Potassium 3.4 mmol/L (3.5-5.1)
[2018-12-17] MEDS: OXYCODONE HCL IR 5 MG TAB (IMMEDIATE RELEASE) PO PRN (21:45)
[2018-12-17] MEDS: BuPROPion SR 100 MG TABCR PO SCH (21:45)
[2018-12-18] MEDS: LORazepam 2 MG/4 ML VIAL IV PRN ×2 (00:42→02:17)
[2018-12-18] MEDS: chlordiazePOXIDE HCl 25 MG CAP PO SCH ×3 (03:13→20:39)
[2018-12-18] MEDS: LORazepam 1 MG/2 ML VIAL IV PRN ×2 (03:39→08:14)
[2018-12-18 05:51] LABS: Hydrocodone Urine NEGATIVE NG/ML (CUTOFF=50); Hydromor Urine 1150 NG/ML (CUTOFF=50); Morphine Urine NEGATIVE NG/ML (CUTOFF=50); Norhydrocodone Conf Ur NEGATIVE NG/ML (CUTOFF=50); Noroxycodone Urine 253 NG/ML (CUTOFF=50); Oxycodone Urine NEGATIVE NG/ML (CUTOFF=50)
[2018-12-18 06:34] LABS: Hematocrit (blood only) 30.4 % (37-47); Hemoglobin 10.5 g/dL (12.0-16.0); Mean Corpuscular Hgb Conc 34.5 g/dL (32-36); Mean Corpuscular Volume 96.5 fL (80-100); Nucleated RBC # (auto) 0.02 K/uL (0-0); Nucleated RBC % (auto) 0.4 %; Red Blood Count 3.15 M/uL (4.2-5.4); White Blood Count 4.11 K/uL (4.8-10.8)
[2018-12-18 06:41] LABS: Mean Platelet Volume 9.5 fL (7.4-10.4); Platelet Count 93 K/uL (130-400)
[2018-12-18 07:01] LABS: Anisocytosis Present; Basophils # (auto) 0.01 K/uL (0-0.2); Basophils % (auto) 0.2 %; Dohle Bodies 1+; Eosinophils # (auto) 0.05 K/uL (0-0.5); Eosinophils % (auto) 1.2 %; Immature Granulocytes # (auto) 0.04 K/uL (0.00-0.02); Lymphocytes # (auto) 0.54 K/uL (1.2-3.4); Lymphocytes % (auto) 13.1 %; Monocytes # (auto) 0.68 K/uL (0.11-0.59); Monocytes % (auto) 16.5 %; Neutrophils # (auto) 2.79 K/uL (1.4-6.5); Target Cells 1+; Toxic Granulation 1+
[2018-12-18 07:04] LABS: Albumin Level 2.3 gm/dl (3.4-5.0); BUN Creatinine Ratio 22.7 (10-20); Calcium 8.2 mg/dl (8.5-10.1); Creatinine Clr Calc Pharmacy 171.5 ml/min; Est GFR (African American) 146.3; Est GFR (Non-African American) 126.2; Potassium 3.1 mmol/L (3.5-5.1)
[2018-12-18 07:10] LABS: Albumin Globulin Ratio 0.7 (0.9-2); Bilirubin,Total 3.8 mg/dl (0.2-1); Globulin 3.3 gm/dl (2.5-4.0); Total Protein 5.6 gm/dl (6.4-8.2)
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
[2018-12-18] MEDS: VENLAFAXINE HCL XR 150 MG CAPXR PO SCH (08:13)
[2018-12-18] MEDS: BuPROPion SR 100 MG TABCR PO SCH ×2 (08:13→20:45)
[2018-12-18] MEDS: VITAMIN B COMPLEX TAB PO SCH (08:13)
[2018-12-18] MEDS: PANTOprazole 40 MG TAB PO SCH ×2 (08:14→20:44)
[2018-12-18] MEDS: METOPROLOL TARTRATE 25 MG TAB PO SCH ×2 (08:14→20:43)
[2018-12-18] MEDS: MULTIVITAMIN TAB PO SCH (08:14)
[2018-12-18] MEDS: THIAMINE HCL 100 MG TAB PO SCH ×3 (08:14→20:44)
[2018-12-18] MEDS: ARIPiprazole 5 MG TAB PO SCH (08:14)
[2018-12-18] MEDS: OXYCODONE HCL IR 5 MG TAB (IMMEDIATE RELEASE) PO PRN (08:32)
[2018-12-18] MEDS: LIDOCAINE 5% 1 PATCH TD SCH (08:32)
[2018-12-18] MEDS: NICOTINE 14 MG/24 HR PATCH TD SCH (08:32)
[2018-12-18] MEDS ORDERED: LIDOCAINE HCL 2% 2 ML VIAL/AMP(20MG/ML) INFIL ONE (14:11)
[2018-12-18] MEDS ORDERED: PROPOFOL IV EMULSION 10 MG/ML 20 ML VIAL IV ONE (14:11)
[2018-12-18] MEDS ORDERED: PHENYLEPHRINE 100MCG/ML 5ML SYR ONE (14:11)
[2018-12-18] MEDS ORDERED: ePHEDrine sulfate 50 MG/ML SYR ONE (14:11)
[2018-12-18] MEDS ORDERED: fentaNYL citrate 100 MCG/2 ML VIAL ONE ×2 (14:12→16:19)
[2018-12-18] MEDS ORDERED: MIDAZOLAM HCL 1 MG/ML 2ML VIAL ONE (14:12)
[2018-12-18] MEDS ORDERED: ATROPINE SULFATE 0.1 MG/ML 10ML SYR IV PRN (15:07)
[2018-12-18] MEDS ORDERED: HYDROmorphone INJ 1 MG/ML SYRINGE IV PRN (15:07)
[2018-12-18] MEDS ORDERED: ePHEDrine sulfate 50 MG/ML AMP IV PRN (15:07)
[2018-12-18] MEDS ORDERED: fentaNYL citrate 100 MCG/2 ML VIAL IV PRN (15:07)
[2018-12-18] MEDS ORDERED: ONDANSETRON INJ 2 MG/ML 2 ML VIAL IV PRN ×2 (15:07→19:52)
[2018-12-18] MEDS ORDERED: ROPIVACAINE 0.5% HCL/PF 150 MG, BUPIVACAINE 0.5% MPF 30 ML, EPINEPHrine 0.15 MG, Ketoro... INFIL SCH (15:15)
[2018-12-18] MEDS ORDERED: POVIDONE-IODINE OP SOLN 30 ML BTL ONE (15:16)
[2018-12-18] MEDS ORDERED: BACITRACIN INJ 50,000 UNIT VIAL ONE (15:16)
--- NOTE | 2018-12-18 15:16 | History & Physical Bridge Note ---
Date of Service December 18, 2018 History & Physical Bridge Note I have examined the patient, reviewed the History & Physical and in the interval since the performance of the History & Physical I have noted the following changes of clinical significance: no changes noted
[2018-12-18] MEDS ORDERED: CEFAZOLIN 1,000 MG/7.5 ML IV PUSH IV ONE (15:20)
--- NOTE | 2018-12-18 15:25 | Orthopedic Progress Note ---
Date of Service December 18, 2018 Assessment & Plan (1) Hip dislocation, left: Postoperative day #1 status post closed reduction left total hip arthroplasty. Subsequent persistent subsidence of the femoral head within the acetabulum. Have indicated the patient for open reduction of the left total hip, head and liner exchange. The risks, benefits, alternatives and complications of the procedure were expanded the patient and her daughter who was present at bedside. These include however not limited to infection, blood clots, acute blood loss, injury to surrounding nerves, bone, vessels, soft tissue, arthrofibrosis, chronic pain, recurrent instability, need for additional surgery, cardiac and pulmonary events and . Alternatives include no surgery. Patient and family member wish to proceed with surgical intervention at this time and informed consent was obtained. Subjective The patient was seen in preoperative holding alongside her daughter who was present for the entirety of the encounter. Patient comfortable. No acute issues. Medically optimized to proceed with surgery. Feeling better. Answered questions appropriately, followed commands. Review of Systems Review of Systems: All systems reviewed & are unremarkable except as noted in HPI & below Constitutional: as per Subjective / HPI Physical Exam Physical Exam: LLE NVSI +EHL/FHL/TA/GS SILT grossly, +2 DP pulse, compartments soft NT, skin C/D/I, +edema over anterior thigh Constitutional: WD/WN, vitals as above Results & Data Vital Signs (Past 12 Hours) Vital Signs Temp Pulse Pulse Resp BP BP Pulse Ox 12/18/18 12:06 36.8 C 83 18 125/81 97 12/18/18 08:00 83 12/18/18 07:58 36.8 C 85 20 128/86 98 12/18/18 04:00 36.8 C 88 20 117/83 97
[2018-12-18] MEDS ORDERED: SUCCINYLCHOLINE CHLORIDE 20 MG/ML 10 ML VIAL ONE (15:32)
[2018-12-18] MEDS ORDERED: CISATRACURIUM BESYLATE IV SOLN 2 MG/ML 10 ML VIAL IV ONE (15:32)
[2018-12-18] MEDS ORDERED: ALBUTEROL HFA INHALER 8.5 GM ONE (15:53)
[2018-12-18] MEDS ORDERED: NEOSTIGMINE METHYLSULFATE 5 MG/5 ML SYR ONE (16:14)
[2018-12-18] MEDS ORDERED: GLYCOPYRROLATE 0.2 MG/ML VIAL ONE (16:14)
--- NOTE | 2018-12-18 16:20 | Hospitalist Progress Note ---
Date of Service December 18, 2018 Assessment & Plan (1) Delirium tremens: - Currently being treated for DTs which are improving; per family she drinks approx. 2.5 L boxed wine per day - setting of ETOH dependence - Will continue Librium 50 mg Q6H today with plans to wean tomorrow; Ativan per protocol; AWSS scale - Thiamine 300 mg TID and Vit B complex - Tox screen with +opiates (on home Oxycodone) and ecstasy which is likely false positive in setting of psychiatric medications Present on Admission?: Yes (2) Hip dislocation, left: - S/P L ASHLEIGH on 09/12/18 - now with dislocation and underwent closed reducti on on 12/17 but repeat XR with continued concern for subluxation and is due for ORIF on 12/18 - Tramadol PRN; Lidocaine patch; Oxycodone 5 mg PRN - Avoid NSAIDs due to PUD; Avoid Tylenol due to LFTs - Orthopedics consulted - ORIF today and anticipate PT/OT pending intervention Present on Admission?: Yes (3) Anemia: - Baseline Hgb around 12-13 and has been trending down; Tranfused 2 units PRBCs this admission with Hgb in 10s and will monitor - Most recent iron studies support anemia of chronic disease Present on Admission?: Yes (4) Acute alcoholic hepatitis: - LFTs slowly trending down but remain elevated; were WNL in Sep 2018 - Outpatient U/S with chronic hepatocellular disease - CMP in AM; Avoid Tylenol products - Hepatitis panel pending Present on Admission?: Yes (5) Lactic acidosis: - Lactic acid level was 6 at outside hospital, trended down - Given IVF initially and currently on hold given recent transfusion Present on Admission?: Yes (6) Hyponatremia: - Na level 122 at outside hospital in setting of ETOH abuse/potomania. - Improved to 133 and will monitor; NaCl BID given but D/C on 12/18 and will monitor with labs Present on Admission?: Yes (7) Attention deficit disorder: - Holding Adderall while hospitalized. Present on Admission?: Yes (8) Anxiety: - Venlafaxine 150 mg daily and Buproprion 200 mg BID Present on Admission?: Yes (9) Depression: - Continue Abilify 5 mg daily; Wellbutrin and Effexor as above Present on Admission?: Yes (10) Hypertension: - STABLE - Metoprolol 25 mg BID Present on Admission?: Yes (11) COPD (chronic obstructive pulmonary disease): - No evidence of acute exacerbation - Smokes 1/2 PPD -- Nicotine patch - Continue Albuterol PRN (12) PUD (peptic ulcer disease): - Noted gastric ulcer on EGD in Sep 2018 - non-bleeding and 20 mm in di mension - Protonix 40 mg BID; Avoid NSAIDs - Outpatient F/U EGD (was due in October but delayed due to acute issues) Present on Admission?: Yes (13) Thrombocytopenia: - This is likely due to ETOH abuse/hypersplenism - Plts stable at 93; SC Heparin on hold given procedure and will recheck plts on AM labs to determine further DVT prophylaxis Present on Admission?: Yes (14) Pulmonary nodule: - 5.2 mm nodule in RUL noted on chest CT in Sep 2018; needs 6 month F/U imaging as outpatient - Encourage tobacco cessation Present on Admission?: Yes (15) DVT prophylaxis: - Heparin SC on hold until AM labs Disposition: PT/OT orders pending ORIF; acute treatment of ETOH withdrawal; possible rehab on D/C? Subjective Pt reports hip discomfort today but states medications help. Due for ORIF this afternoon. Reed catheter with some bloody urine likely from trauma from pulling at is as she kept trying to remove adductor pillow. She denies SOB but states she does use a PRN inhaler when needed. Some mild wheeze on assessment but seems to clear with deeper breaths. She has a noticeable tremor but a calm demeanor. Review of Systems Constitutional: + fatigue; no fever and no chills Respiratory: no dyspnea Cardiovascular: no chest pain and no edema Gastrointestinal: no abdominal pain, no nausea, no vomiting, no constipation and no diarrhea/loose stools Genitourinary: no dysuria Neurologic: + tremor(s) Physical Exam Constitutional: no acute distress ENMT: Ears: no hearing impairment Neck: normal visual inspection and trachea midline Respiratory: normal respiratory effort Auscultation: + wheezes (minimal but clears with deeper inspirations) Cardiovascular: Rate/Rhythm: regular rate and regular rhythm Gastrointestinal (Abdomen): Inspection/Auscultation: normal bowel sounds Percussion/Palpation: abdomen soft; abdomen nontender Musculoskeletal: Head/Neck/Chest: normocephalic and head atraumatic Extremities: no cyanosis and no clubbing adductor pillow slightly in place (removed by patient) Skin: no rashes, warm and dry Neurologic: moves all extremities (did not move L hip but can move toes; diffuse ecchymosis on dorsum of foot) Psychiatric: Orientation: alert and oriented x 3 Genitourinary: Reed catheter placed with some mild bloody urine present Results & Data Vital Signs (Past 12 Hours) Vital Signs Temp Pulse Pulse Resp BP Pulse Ox 12/18/18 15:00 80 12/18/18 14:45 37.1 C 86 16 134/96 96 12/18/18 12:06 36.8 C 83 18 125/81 97 12/18/18 08:00 83 12/18/18 07:58 36.8 C 85 20 128/86 98
--- NOTE | 2018-12-18 17:12 | Post Operative Brief Note ---
Immediate Post Op Note v1 Date of Surgery December 18, 2018 Pre & Post Diagnosis Operation Date: 12/17/18 07:00 Pre-Op Diagnosis: Left total hip arthroplasty dislocation status post fall due to alcohol abuse Post-Op Diagnosis: Left total hip arthroplasty dislocation status post fall due to alcohol abuse Operation Date: 12/18/18 09:00 Pre-Op Diagnosis: Left Total Hip Arthroplasty Dislocation Post-Op Diagnosis: Left Total Hip Arthroplasty Dislocation Procedure Operation Date: 12/17/18 07:00 Actual Procedures p Closed Reduction Left Hip(Left) - Russ Mccoy DO Operation Date: 12/18/18 09:00 Actual Procedures p Open Reduction Left Total Hip with Femoral Head and Liner Exchange and Revision of Incisional Scar(Left) - Nahum Chauhan DO Surgeon Nahum Chauhan DO Car Filler Beto Buenrostro Estimated Blood Loss 150 Findings Consistent with Post-Op Diagnosis Fluids 500cc of saline with dextrose, 700 cc LR Specimens Culture x 2 Drains Reed Catheter (in place from inpatient room, clean yellow urine noted) Anesthesia Type General Complications none Disposition Disposition: Recovery Room Overlapping Procedure I was present for: the critical portions of procedure. I was immediately available: during the entire case. Back up surgeon: was not required during procedure.
[2018-12-18] MEDS ORDERED: VANCOMYCIN HCL 1000MG/20ML VIAL ONE (17:15)
--- NOTE | 2018-12-18 17:36 | Operative Report ---
Post Operative Report Pre & Post Diagnosis Operation Date: 12/17/18 07:00 Pre-Op Diagnosis: Left total hip arthroplasty dislocation status post fall due to alcohol abuse Post-Op Diagnosis: Left total hip arthroplasty dislocation status post fall due to alcohol abuse Operation Date: 12/18/18 09:00 Pre-Op Diagnosis: Left Total Hip Arthroplasty Dislocation Post-Op Diagnosis: Left Total Hip Arthroplasty Dislocation Procedure Operation Date: 12/17/18 07:00 Actual Procedures p Closed Reduction Left Hip(Left) - Russ Mccoy DO Operation Date: 12/18/18 09:00 Actual Procedures p Open Reduction Left Total Hip with Femoral Head and Liner Exchange and Revision of Incisional Scar(Left) - Nahum Chauhan DO Surgeon Nahum Chauhan DO Cuff Knitter Beto Buenrostro Estimated Blood Loss 150 Findings Consistent with Post-Op Diagnosis Specimens culture x 2, deep Drains none Anesthesia Type General Complications none Disposition Disposition: Recovery Room Indications The patient is a 53-year-old female with past medical history significant for alcohol abuse and with previous history of left anterior total hip arthroplasty performed on 09/10/2018. Did well postoperatively however the patient sustained a fall at home from standing height developed subsequent left hip pain, questionable in regards to exact date of the fall, patient is a poor historian. Per patient's family member, she believes fall occurred 1 to 2 weeks prior to hospitalization. The patient was self-medicating with alcohol as well as OxyContin. Due to worsening pain, confusion and inability to ambulate the patient was seen at [facility] and found to have left anterior total hip dislocation and alcohol withdrawals/DTs. She was subsequently transferred to [facility] for further inpatient care/treatment. On 12/09/2018 the patient was medically stabilized and underwent closed reduction of her left total hip by Dr. Mccoy. Postoperative x-rays demonstrate residual subsidence of the femoral head within the acetabular component. I indicated the patient for open reduction of her left total hip, head and liner exchange. The risks, alternatives, complications and benefits of the procedure were expanded the patient as well as her daughter who was present which include however not limited to infection, blood clots, acute blood loss, injury to surrounding nerves, bone, vessels, soft tissue, arthrofibrosis, chronic pain, residual instability, need for additional surgery, cardiac and pulmonary events and . The patient and daughter wish to proceed with surgical intervention and informed consent was obtained at this time. Description of Procedure COMPONENTS USED: [employer] hip system: R3 liner 20 degree elevated [address] [employer]: CoCr femoral head 32+3.5 DESCRIPTION OF PROCEDURE: Following satisfactory general anesthesia, the patient was placed supine on the OR table. The right leg was placed in the well leg miller and the left leg in the traction device. The left leg was prepared with ChloraPrep and draped sterilely. A surgical timeout was performed, patient identified in site duncan confirmed. Appropriate antibiotics were given. A standard anterior approach in line with previous incision. Excision of prior incisional scar was performed and carried down through subcutaneous tissues in the interval between the sartorius and tensor muscles. Electrocautery was utilized for hemostasis. Care was taken to identify tissue planes. Once dissection carried down to capsule we identified a superior rent in the capsule and pocket in the soft tissue with a large blood clot. The femoral head a cetabular liner had trapped capsular tissue blocking reduction. The hip was dislocated and a capsulectomy was performed. Care was taken to remove soft tissue around the acetabulum, the implant itself was stable appearing. Two cultures of joint fluid was taken. Utilizing the polyethylene extraction tool the liner was removed and the shell was irrigated with copious amounts of sterile saline with bacitracin. A 20 degree elevated acetabular liner was inserted and impacted into place. Next we turned our attention to the proximal femur. The femur was placed into position of external rotation, extension and adduction. Care was taken to remove soft tissue around the proximal stem bone interface. The stem itself appeared to be well fixed and stable. The trunnion was cleaned and without s ignificant signs of wear. A trial femoral head 32+3.5 was inserted and the hip was reduced. There was good tension of the soft tissue and x-rays taken with C- arm fluoroscopy demonstrate a well aligned well fixed orthopedic implant, leg lengths equal. The hip was dislocated once more. The wound was irrigated with copious amounts of sterile saline solution with bacitracin. Access to the proximal femur was once more gained and the trunnion cleaned and the final femoral head size 32+3.[address] was impacted [address]. The hip was reduced once more. Final x-rays [place] well aligned well fixed orthopedic prosthesis without evidence of fracture dislocation. Leg lengths equal. The hip was then soaked in a mixture of betadine, sterile saline solution. After 3 minutes, the hip was once more irrigated with copious sterile saline solution with bacitracin. Rut-incisional soft tissue was injected utilizing [place] [employer] which includes a combination of Ropivicaine 0.5% 150mg, Bupivic peter 0.5%/Epinephrine 1:200,000 30ml, Toradol 30mg, Dexamethasone 4mg, Ketamine 10mg, Clonidine 100mcg and NSS 30ml solution. Deep tissues closed with 1-0 Vicryl interrupted figure of eight sutures. The fascia was closed with a running suture of #1 Vicryl, the subcutaneous tissues with 2-0 Vicryl and the skin with ada. A dry dressing, Celina incisional VAC was applied. The patient tolerated the procedure well and was transported to PACU in stable condition. Due to the complex nature of the procedure, the entire surgery was performed with the operational assistance of Beto Buenrostro PA-C. The behavioral health assistant, under direct supervision, was involved in the actual performance of all aspects of the surgical procedure including patient positioning, hemostasis, tissue retraction, instrument management and wound closure. I attest to the content of the Intraoperative Record and any orders documented therein. Any exceptions are noted below.
--- NOTE | 2018-12-18 17:37 | Fluoroscopy Report ---
FL hip LT 2-3V CLINICAL HISTORY: LT OPEN REDUCTION HEAD AND LINER EXCHANGE COMPARISON STUDY: Left hip 12/16/2018. FLUOROSCOPY TIME: 18 seconds. FINDINGS: 2 fluoroscopic spot images of the left hip demonstrate a left total hip arthroplasty. The h ardware is intact. No fracture or dislocation. IMPRESSION: Fluoroscopy provided for left total hip arthroplasty. No evidence for hardware complicati on. Electronically signed by: Riaz Friend M.D. 12/18/2018 5:35 PM
--- NOTE | 2018-12-18 18:13 | XRay Report ---
XR hip LT 1V HISTORY: 53 years-old Female suture count left hip total joint arthroplasty COMPARISON: Fluoroscopic images of the left hip of same day TECHNIQUE: Portable AP view of the left hip FINDINGS: Left hip total joint arthroplasty is noted in satisfactory alignment. No retained foreign body, malal ignment or acute fracture. Lateral skin ada are noted. Expected postsurgical soft tissue swelling and deep tissue air. IMPRESSION: 1. Left hip total joint arthroplasty with satisfactory alignment. 2. No opaque foreign body identified. The above report was generated using voice recognition software. It may contain grammatical, syntax o r spelling errors. Electronically signed by: Felix Richter M.D. 12/18/2018 6:11 PM
--- NOTE | 2018-12-18 18:14 | Fluoroscopy Report ---
FL hip LT 1V CLINICAL HISTORY: Abnormal suture count. COMPARISON STUDY: Left hip 12/16/2018. FLUOROSCOPY TIME: 2 seconds.. FINDINGS: 2 fluoroscopic spot images of the left hip demonstrate a left total hip arthroplasty. The h ardware appears intact. No fracture or dislocation. Skin ada are in place. No additional radiopaq ue foreign bodies identified within the left hip. IMPRESSION: Status post left hip arthroplasty. No evidence for hardware complication. Electronically signed by: Riaz Friend M.D. 12/18/2018 6:12 PM
[2018-12-18] MEDS ORDERED: ALBUMIN HUMAN 5% 12.5 GM/250 ML VIAL IV ONE (18:32)
[2018-12-18 18:50] LABS: Hematocrit (blood only) 25.1 % (37-47); Hemoglobin 8.8 g/dL (12.0-16.0)
--- NOTE | 2018-12-18 19:07 | Anesthesiology Progress Note ---
Date of Service December 18, 2018 Anesthesia Post Procedure Vital Signs Vital Signs: Temp Pulse Pulse Resp BP BP Pulse Ox 12/18/18 19:00 96 H 18 97/70 L 100 12/18/18 18:50 97 H 17 104/66 100 12/18/18 18:40 81 17 100/62 100 12/18/18 18:30 83 16 92/70 L 100 12/18/18 18:22 36.3 C L 84 15 75/56 L 100 12/18/18 15:00 80 12/18/18 14:45 37.1 C 86 16 134/96 96 12/18/18 12:06 36.8 C 83 18 125/81 97 12/18/18 08:00 83 12/18/18 07:58 36.8 C 85 20 128/86 98 12/18/18 04:00 36.8 C 88 20 117/83 97 12/18/18 00:00 79 12/17/18 23:42 37.0 C 89 20 118/76 99 12/17/18 20:00 36.8 C 87 20 137/89 100 Pain Intensity Hip: Pain Intensity: 2 Transfer of Care Handoff Completed per policy Notes Mental Status: alert / awake / arousable Patient Amnestic to Procedure: Yes Nausea / Vomiting: adequately controlled Pain: adequately controlled Airway Patency, RR, SpO2: stable & adequate BP & HR: stable & adequate and see Notes below Hydration State: stable & adequate Anesthetic Complications: no major complications apparent and Pt Satisfied with anesthetic care Notes: The patient tolerated the procedure although her SBP has remained in the 90s-100s in the PACU. However her DBP remains in the 70s. A postop hgb was found to be 8.8. She is receiving albumin 250 ml in the PACU. The patient was hypoglycmic preoperatively but received 500 ml D5W and Decadron IV. Postop BSG was 127. The patient is comfortable resting with SpO2 100 on oxygen 2 L NC. She is at risk for delirium tremens due to a history of alcoholism so she will have continuous pulse oximetry on the floor. I spoke to Camilla Yost who will monitor the patient on the floor.
--- NOTE | 2018-12-18 19:12 | Orthopedic Progress Note ---
Date of Service December 18, 2018 Assessment & Plan (1) Hip dislocation, left: s/p open reduction left total hip, head and liner exchange, excision of scar -ancef/vanco x 24 -DVT ppx: SCDs, TEDs, ASA BID -WBAT LLE -Anterior hip precautions -PT/OT when medically stable -PO XR well aligned well fixed prosthesis without fracture/dislocation -am labs Subjective Post Operative Progress Note Patient seen in PACU, still waking up from general anesthesia, comofortable, no acute issues. Review of Systems Review of Systems: All systems reviewed & are unremarkable except as noted in HPI & below Constitutional: as per Subjective / HPI Physical Exam Physical Exam: LLE NVSI limited, actively moving foot and toes, dressing cdi, +2 DP pulse, compartments soft NT. Constitutional: WD/WN, vitals as above Results & Data Vital Signs (Past 12 Hours) Vital Signs Temp Pulse Pulse Resp BP BP Pulse Ox 12/18/18 19:00 96 H 18 97/70 L 100 12/18/18 18:50 97 H 17 104/66 100 12/18/18 18:40 81 17 100/62 100 12/18/18 18:30 83 16 92/70 L 100 12/18/18 18:22 36.3 C L 84 15 75/56 L 100 12/18/18 15:00 80 12/18/18 14:45 37.1 C 86 16 134/96 96 12/18/18 12:06 36.8 C 83 18 125/81 97 12/18/18 08:00 83 12/18/18 07:58 36.8 C 85 20 128/86 98
--- NOTE | 2018-12-18 19:41 | XRay Report ---
XR hip 1V LT w pelvis HISTORY: 53 years-old Female IN PACU - A/P PELVIS and LATERAL HIP left hip total joint arthroplasty COMPARISON: Left hip radiographs of same day at 5:36 PM TECHNIQUE: AP view the pelvis with crosstable lateral view of the left hip FINDINGS: Left hip total joint arthroplasty demonstrates satisfactory alignment. Surgical drainage catheter not ed. No acute fracture or opaque foreign body. Expected postsurgical soft tissue swelling and deep tis bethany air about the left hip with lateral skin ada. Mild osteoarthritis of the right hip. IMPRESSION: Left hip total joint arthroplasty demonstrates satisfactory alignment. The above report was generated using voice recognition software. It may contain grammatical, syntax o r spelling errors. Electronically signed by: Felix Richter M.D. 12/18/2018 7:40 PM
[2018-12-18] MEDS ORDERED: BISACODYL 10 MG SUPP PR PRN (19:52)
[2018-12-18] MEDS ORDERED: HYDROmorphone INJ 0.5 MG/0.5 ML SYR IV PRN (19:52)
[2018-12-18] MEDS ORDERED: METOCLOPRAMIDE HCL INJ 5 MG/ML 2 ML VIAL IV PRN (19:52)
[2018-12-18] MEDS ORDERED: MAGNESIUM HYDROXIDE SUSP 30 ML UDC PO PRN (19:52)
[2018-12-18] MEDS ORDERED: NALOXONE HCL 0.4 MG/1 ML VIAL/CARP IV PRN (19:52)
[2018-12-18] MEDS ORDERED: VANCOMYCIN CONSULT ACTIVE PRN (19:52)
[2018-12-18] MEDS: SENNA 8.6 MG TAB PO SCH (20:43)
[2018-12-18] MEDS: DOCUSATE SODIUM 100 MG CAP PO SCH (20:43)
[2018-12-18] MEDS: ASPIRIN 325 MG ECTAB PO SCH (20:51)
[2018-12-18] MEDS: D5W AND NSS 1,000 ML IV SCH (20:58)
[2018-12-18] MEDS: KETOROLAC TROMETHAMINE 15 MG/ML VIAL IV SCH (20:59)
[2018-12-18] MEDS: SODIUM CHLORIDE 0.9% 1000ML 1,000 ML IV SCH (21:01)
[2018-12-18] MEDS: VANCOMYCIN HCL 1,000 MG in SODIUM CHLORIDE 0.9% 250 ML IV SCH (21:02)
[2018-12-18] MEDS: ACETAMINOPHEN 500 MG TAB PO SCH (21:57)
[2018-12-18] MEDS: HEPARIN SOD 5,000 UNIT/0.5 ML VIAL SQ SCH (21:57)
[2018-12-18] MEDS ORDERED: ALBUMIN 25% 50 ML IV ONE (22:54)
[2018-12-18] MEDS: CEFAZOLIN 1000MG 1,000 MG/7.5 ML SYR IV SCH (23:37)
[2018-12-19] MEDS: KETOROLAC TROMETHAMINE 15 MG/ML VIAL IV SCH ×2 (01:17→08:11)
[2018-12-19] MEDS: chlordiazePOXIDE HCl 25 MG CAP PO SCH ×4 (03:48→20:56)
[2018-12-19] MEDS: ACETAMINOPHEN 500 MG TAB PO SCH ×5 (06:14→22:23)
[2018-12-19 06:38] LABS: Hematocrit (blood only) 16.9 % (37-47); Hemoglobin 5.8 g/dL (12.0-16.0); Mean Corpuscular Hgb Conc 34.3 g/dL (32-36); Mean Corpuscular Volume 98.3 fL (80-100); Mean Platelet Volume 8.8 fL (7.4-10.4); Nucleated RBC # (auto) 0.02 K/uL (0-0); Nucleated RBC % (auto) 0.4 %; Platelet Count 82 K/uL (130-400); RDW Coefficient of Variation 26.1 % (11.5-14.5); RDW Standard Deviation 84.3 fL (36.4-46.3); Red Blood Count 1.72 M/uL (4.2-5.4); White Blood Count 5.38 K/uL (4.8-10.8)
[2018-12-19 06:39] LABS: Basophils # (auto) 0.01 K/uL (0-0.2); Basophils % (auto) 0.2 %; Eosinophils # (auto) 0.01 K/uL (0-0.5); Eosinophils % (auto) 0.2 %; Immature Granulocytes # (auto) 0.09 K/uL (0.00-0.02); Immature Granulocytes % (auto) 1.7 %; Lymphocytes # (auto) 0.72 K/uL (1.2-3.4); Lymphocytes % (auto) 13.4 %; Monocytes % (auto) 14.9 %; Neutrophils # (auto) 3.75 K/uL (1.4-6.5); Neutrophils % (auto) 69.6 %; Target Cells 1+
[2018-12-19 06:42] LABS: Albumin Level 2.4 gm/dl (3.4-5.0); BUN Creatinine Ratio 14.5 (10-20); Calcium 7.8 mg/dl (8.5-10.1); Creatinine Clr Calc Pharmacy 75.2 ml/min; Est GFR (African American) 107.5; Est GFR (Non-African American) 92.7; Potassium 3.9 mmol/L (3.5-5.1)
[2018-12-19 06:44] LABS: Albumin Globulin Ratio 0.9 (0.9-2); Bilirubin,Total 3.1 mg/dl (0.2-1); Globulin 2.5 gm/dl (2.5-4.0); Total Protein 4.9 gm/dl (6.4-8.2)
[2018-12-19] MEDS ORDERED: SODIUM CHLORIDE 0.9% 250 ML IV PRN ×2 (06:47→12:09)
[2018-12-19 07:04] LABS: Anisocytosis Present; Polychromasia 1+
--- NOTE | 2018-12-19 07:18 | Orthopedic Progress Note ---
Date of Service December 19, 2018 Assessment & Plan (1) Hip dislocation, left: s/p open reduction left total hip, head and liner exchange, excision of scar POD#1 -ancef/vanco x 24 -DVT ppx: SCDs, TEDs, ASA BID -WBAT LLE -Anterior hip precautions -PT/OT when medically stable -am labs - hgb 5.8, transfuse 2 units -PO XR well aligned well fixed prosthesis without fracture/dislocation Subjective Post Operative Progress Note Patient seen sitting up in bed, comfortable, denies complaints, pain well controlled, no acute issues. Review of Systems Review of Systems: All systems reviewed & are unremarkable except as noted in HPI & below Constitutional: as per Subjective / HPI Physical Exam Physical Exam: LLE NVSI +EHL/FHL/TA/GS SILT grossly, +2 DP pulse, compartments soft NT, dressing cdi. Results & Data Vital Signs (Past 12 Hours) Vital Signs Temp Pulse Pulse Resp BP BP Pulse Ox 12/19/18 04:00 36.5 C 91 H 18 94/65 L 100 12/19/18 00:45 36.4 C L 97 H 18 90/60 L 100 12/18/18 23:40 36.4 C L 99 H 18 86/56 L 96 12/18/18 22:55 36.3 C L 97 H 16 97/62 L 100 12/18/18 21:55 36.5 C 98 H 18 84/54 L 97 12/18/18 20:52 95 H 16 87/61 L 100 12/18/18 20:25 36.4 C L 88 16 84/55 L 100 12/18/18 19:55 36.4 C L 91 H 18 91/61 L 100 12/18/18 19:30 94 H 20 99/71 L 100 12/18/18 19:20 36.2 C L 95 H 18 99/64 L 100
[2018-12-19] MEDS ORDERED: ASPIRIN 325 MG ECTAB PO SCH (09:00)
[2018-12-19] MEDS: VANCOMYCIN HCL 1,000 MG in SODIUM CHLORIDE 0.9% 250 ML IV SCH (09:30)
[2018-12-19] MEDS: DOCUSATE SODIUM 100 MG CAP PO SCH ×2 (09:35→20:57)
[2018-12-19] MEDS: METOPROLOL TARTRATE 25 MG TAB PO SCH ×2 (09:35→20:58)
[2018-12-19] MEDS: MULTIVITAMIN TAB PO SCH ×2 (09:36)
[2018-12-19] MEDS: VITAMIN B COMPLEX TAB PO SCH (09:38)
[2018-12-19] MEDS: ARIPiprazole 5 MG TAB PO SCH (09:38)
[2018-12-19] MEDS: THIAMINE HCL 100 MG TAB PO SCH ×4 (09:39→20:58)
[2018-12-19] MEDS: VENLAFAXINE HCL XR 150 MG CAPXR PO SCH (09:39)
[2018-12-19] MEDS: ASPIRIN 325 MG ECTAB PO SCH ×2 (09:40→20:57)
[2018-12-19] MEDS: NICOTINE 14 MG/24 HR PATCH TD SCH (09:41)
[2018-12-19] MEDS: PANTOprazole 40 MG TAB PO SCH ×2 (09:41→22:19)
[2018-12-19] MEDS: BuPROPion SR 100 MG TABCR PO SCH ×2 (09:41→22:19)
[2018-12-19] MEDS: LIDOCAINE 5% 1 PATCH TD SCH (09:43)
[2018-12-19] MEDS: SODIUM CHLORIDE 0.9% 1000ML 1,000 ML IV SCH (09:54)
[2018-12-19] MEDS ORDERED: chlordiazePOXIDE HCl 5 MG CAP PO SCH (10:00)
[2018-12-19] MEDS: CEFAZOLIN 1000MG 1,000 MG/7.5 ML SYR IV SCH (10:11)
[2018-12-19] MEDS: HEPARIN SOD 5,000 UNIT/0.5 ML VIAL SQ SCH (10:32)
[2018-12-19 13:16] LABS: Hematocrit (blood only) 24.5 % (37-47); Hemoglobin 8.5 g/dL (12.0-16.0)
--- NOTE | 2018-12-19 16:35 | Hospitalist Progress Note ---
Date of Service December 19, 2018 Assessment & Plan (1) Delirium tremens: - Currently being treated for DTs which are improving; per family she drinks approx. 2.5 L boxed wine per day - setting of ETOH dependence - Patient and daughter report tremors are common for her and wax and wane in intensity - she does look a lot better today and likely reaching a baseline mentation/tremor - Will continue AWSS scale today and can use PRN Ativan as needed - will try to not overuse Ativan given she does not appear to be significantly in withdrawal at this time - Will continue Librium 50 mg Q8H today and convert to BID dosing tomorrow - Thiamine 300 mg TID and Vit B complex - Tox screen with +opiates (on home Oxycodone) and ecstasy which is likely false positive in setting of psychiatric medications (2) Hip dislocation, left: - S/P L ASHLEIGH on 09/12/18 - with dislocation and underwent closed reduction on 12/17 but repeat XR with continued concern for subluxation and is S/P ORIF on 12/18 - Tramadol PRN; Lidocaine patch; Oxycodone 5 mg PRN - Avoid NSAIDs due to PUD; Avoid Tylenol due to LFTs - Orthopedics consulted - appreciate input (3) Anemia: - Acute on chronic issue related to acute blood loss anemia due to surgical losses, dilution, and likely her underlying anemia of chronic disease - Given her known PUD it will be important to monitor for any signs of GI losses - will check stool - Baseline Hgb around 12-13 a few months back but has been trending down around 8-9 range; Tranfused 4 units PRBCs this admission - Hgb 5.8 on 12/19 with repeat in 8s and will recheck this evening - will monitor for further need for transfusion - Having some reduced urine output but WNL renal function on labs - possibly related to volume losses and will monitor after transfusion as BP improved from yesterday and will monitor renal function - UO is improving from yesterday and will allow oral intake at this time - can perform further workup if not improved through day tomorrow - Most recent iron studies support anemia of chronic disease (4) Acute alcoholic hepatitis: - LFTs slowly trending down but remain elevated; were WNL in Sep 2018 - Outpatient U/S with chronic hepatocellular disease - CMP in AM; Avoid Tylenol products - Hepatitis panel pending (5) Lactic acidosis: - Lactic acid level was 6 at outside hospital, trended down - Given IVF initially and currently on hold given recent transfusion (6) Hyponatremia: - Na level 122 at outside hospital in setting of ETOH abuse/potomania. - Improved and will monitor; NaCl BID given but D/C on 12/18 and will monitor with labs (7) Attention deficit disorder: - Holding Adderall while hospitalized. (8) Anxiety: - Venlafaxine 150 mg daily and Buproprion 200 mg BID (9) Depression: - Continue Abilify 5 mg daily; Wellbutrin and Effexor as above (10) Hypertension: - STABLE - Metoprolol 25 mg BID (11) COPD (chronic obstructive pulmonary disease): - No evidence of acute exacerbation - Smokes 1/2 PPD -- Nicotine patch - Continue Albuterol PRN (12) PUD (peptic ulcer disease): - Noted gastric ulcer on EGD in Sep 2018 - non-bleeding and 20 mm in dimension - Protonix 40 mg BID; Avoid NSAIDs - Outpatient F/U EGD (was due in October but delayed due to acute issues) (13) Thrombocytopenia: - This is likely due to ETOH abuse/hypersplenism; continue to monitor (14) Pulmonary nodule: - 5.2 mm nodule in RUL noted on chest CT in Sep 2018; needs 6 month F/U imaging as outpatient - Encourage tobacco cessation (15) DVT prophylaxis: - ASA BID - will need to be mindful of PUD; will hold heparin due to thrombocytopenia Disposition: PT/OT; patient interested in rehab on D/C - possible D/C next 2-3 days Subjective Patient reports feeling much better today and is more alert conversation is easier to follow. She was noted to have a Hgb of 5.8 this AM and was transfused 2 units with improvement in BP readings She reports her pain is much better and feels that her breathing is at baseline. Continues with tremors but states this is about her normal. Discussed with daughter who states that she does have a chronic tremor and it wax and wanes in intensity She overall appears calm and likely largely at baseline Review of Systems Constitutional: + fatigue (improving); no fever and no chills Eyes: no worsening vision Ear, Nose, Mouth, Throat: no nasal congestion, no sore throat and no dysphagia Respiratory: no cough, no dyspnea and no wheezing Cardiovascular: no chest pain, no palpitations and no lightheadedness Gastrointestinal: no abdominal pain, no nausea, no vomiting, no constipation and no diarrhea/loose stools Genitourinary: no dysuria Musculoskeletal: no joint pain and no body aches Neurologic: + tremor(s) Psychiatric: + anxiety (chronic) Physical Exam Constitutional: no acute distress ENMT: Ears: no hearing impairment Neck: normal visual inspection and trachea midline Respiratory: normal respiratory effort Auscultation: + wheezes (minimal but clears with deeper inspirations) Cardiovascular: Rate/Rhythm: regular rate and regular rhythm Gastrointestinal (Abdomen): Inspection/Auscultation: normal bowel sounds Percussion/Palpation: abdomen soft; abdomen nontender Musculoskeletal: Head/Neck/Chest: normocephalic and head atraumatic Extremities: no cyanosis and no clubbing Skin: no rashes, warm and dry Neurologic: moves all extremities (did not move L hip but can move toes; diffuse ecchymosis on dorsum of foot) Psychiatric: Orientation: alert and oriented x 3 Results & Data Vital Signs (Past 12 Hours) Vital Signs Temp Pulse Pulse Pulse Resp BP BP 12/19/18 15:15 36.6 C 96 H 18 107/72 12/19/18 12:36 36.8 C 97 H 18 114/76 12/19/18 11:38 36.7 C 101 H 20 117/68 12/19/18 11:10 36.8 C 98 H 16 102/65 12/19/18 10:55 37 C 97 H 18 12/19/18 10:27 36.7 C 100 H 18 98/73 L 12/19/18 09:05 36.9 C 96 H 18 94/62 L 12/19/18 08:35 36.7 C 98 H 16 102/57 L 12/19/18 08:20 36.7 C 98 H 20 93/60 L 12/19/18 08:00 36.6 C 93 H 20 90/58 L 12/19/18 07:40 36.8 C 93 H 18 89/49 L 12/19/18 06:30 BP Pulse Ox 12/19/18 15:15 96 12/19/18 12:36 99 12/19/18 11:38 94 12/19/18 11:10 100 12/19/18 10:55 106/67 98 12/19/18 10:27 100 12/19/18 09:05 100 12/19/18 08:35 100 12/19/18 08:20 97 12/19/18 08:00 100 12/19/18 07:40 100 12/19/18 06:30 92/63 L
[2018-12-19 17:46] LABS: Hematocrit (blood only) 23.4 % (37-47); Hemoglobin 8.3 g/dL (12.0-16.0)
[2018-12-19] MEDS: SENNA 8.6 MG TAB PO SCH (20:57)
[2018-12-19] MEDS ORDERED: CeleBREX 200 MG CAP PO SCH (21:00)
[2018-12-19 22:25] LABS: Hematocrit (blood only) 25.3 % (37-47); Hemoglobin 8.9 g/dL (12.0-16.0)
[2018-12-20] MEDS: chlordiazePOXIDE HCl 25 MG CAP PO SCH ×2 (05:26→13:04)
[2018-12-20] MEDS: ACETAMINOPHEN 500 MG TAB PO SCH ×2 (05:26→14:14)
[2018-12-20 06:31] LABS: Basophils # (auto) 0.01 K/uL (0-0.2); Basophils % (auto) 0.2 %; Eosinophils # (auto) 0.06 K/uL (0-0.5); Eosinophils % (auto) 1.3 %; Hematocrit (blood only) 25.1 % (37-47); Hemoglobin 8.8 g/dL (12.0-16.0); Immature Granulocytes # (auto) 0.06 K/uL (0.00-0.02); Immature Granulocytes % (auto) 1.3 %; Lymphocytes # (auto) 0.56 K/uL (1.2-3.4); Lymphocytes % (auto) 12.5 %; Mean Corpuscular Hgb Conc 35.1 g/dL (32-36); Mean Corpuscular Volume 91.9 fL (80-100); Mean Platelet Volume 8.8 fL (7.4-10.4); Monocytes # (auto) 0.75 K/uL (0.11-0.59); Monocytes % (auto) 16.7 %; Neutrophils # (auto) 3.05 K/uL (1.4-6.5); Platelet Count 108 K/uL (130-400); RDW Standard Deviation 70.4 fL (36.4-46.3); Red Blood Count 2.73 M/uL (4.2-5.4); White Blood Count 4.49 K/uL (4.8-10.8)
[2018-12-20 06:57] LABS: Anisocytosis Present; Basophilic Stippling 1+; Hypochromasia Present; Polychromasia 1+; Toxic Granulation 1+
[2018-12-20 07:04] LABS: BUN Creatinine Ratio 14.9 (10-20); Calcium 8.3 mg/dl (8.5-10.1); Creatinine Clr Calc Pharmacy 65.3 ml/min; Est GFR (African American) 90.7; Est GFR (Non-African American) 78.2; Potassium 3.1 mmol/L (3.5-5.1)
[2018-12-20] MEDS ORDERED: POTASSIUM CHLORIDE 20 MEQ TABCR PO STA (08:09)
--- NOTE | 2018-12-20 08:22 | Orthopedic Progress Note ---
Date of Service December 20, 2018 Assessment & Plan (1) Hip dislocation, left: POD #2 s/p open reduction left total hip, head and liner exchange, excision of scar -DVT ppx: SCDs, TEDs, ASA BID -WBAT LLE -Anterior hip precautions -PT/OT when medically stable -am labs - hgb 8.8/25.1, continue to monitor -PO XR well aligned well fixed prosthesis without fracture/dislocation I have seen and examined the patient, agree with above assessment and plan. Subjective POD #2 s/p Open Reduction Left Total Hip with Femoral Head and Liner Exchange and Revision of Incisional Scar Patient seen sitting up in bed, comfortable, denies complaints, pain well controlled, no acute issues. Review of Systems Review of Systems: All systems reviewed & are unremarkable except as noted in HPI & below Constitutional: as per Subjective / HPI Physical Exam Physical Exam: Vital Signs Temp 36.6 C 12/20/18 03:10 Pulse 84 12/20/18 03:10 Resp 18 12/20/18 03:10 BP 123/77 12/20/18 03:10 Pulse Ox 99 12/20/18 03:10 Intake & Output 12/19/18 12/20/18 12/20/18 18:59 06:59 18:59 Intake Total 1620 / 2420 800 / 2420 Output Total 100 / 476 376 / 476 Balance 1520 / 1944 424 / 1944 Intake: IV 1000 / 1000 Nss 1000ML 1,0 00 ml @ 100 mls/ 1000 / 1000 hr IV .Q10H SC H Rx#:[id number] Oral 800 / 800 Intake (Blood Pr oduct) Amt 620 / 620 Packed Cells, Leukoreduced 310 / 310 Unit [id number] Packed Cells, Leukoreduced 310 / 310 Unit [id number] Output: Urine 275 / 275 Urine Amount (Ca theter) 100 / 200 100 / 200 Reed/Indwelli ng 100 / 200 100 / 200 # Bowel Movement s Constitutional: no acute distress Musculoskeletal: Left lower extremity: NVDI, calf SNT, able to wiggle toes, ankle motion without difficulty, prevena intact, small amount of drainage noted into prevena tubing. +2 DP pulse, compartments soft NT. Results & Data Vital Signs (Past 12 Hours) Vital Signs Temp Pulse Resp BP Pulse Ox 12/20/18 03:10 36.6 C 84 18 123/77 99 12/19/18 23:40 36.6 C 85 16 117/79 100 12/19/18 20:59 107 H 115/70 98 Diagnostic Findings PT 11.4 Seconds (9.0-12.0) 12/17/18 04:41 Laboratory Results WBC 4.49 K/uL (4.8-10.8) L 12/20/18 06:22 RBC 2.73 M/uL (4.2-5.4) L 12/20/18 06:22 Hgb 8.8 g/dL (12.0-16.0) L 12/20/18 06:22 Hct 25.1 % (37-47) L 12/20/18 06:22 MCV 91.9 fL (80-100) D 12/20/18 06:22 MCH 32.2 pg (25-34) 12/20/18 06:22 MCHC 35.1 g/dL (32-36) 12/20/18 06:22 RDW Std Deviation 70.4 fL (36.4-46.3) H 12/20/18 06:22 RDW Coeff of Lucia 24.0 % (11.5-14.5) H 12/20/18 06:22 Plt Count 108 K/uL (130-400) L 12/20/18 06:22 MPV 8.8 fL (7.4-10.4) 12/20/18 06:22 Immature Gran % (Auto) 1.3 % 12/20/18 06:22 Neut % (Auto) 68.0 % 12/20/18 06:22 Lymph % (Auto) 12.5 % 12/20/18 06:22 [place] % (Auto) 16.7 % 12/20/18 06:22 Eos % (Auto) 1.3 % 12/20/18 06:22 Baso % (Auto) 0.2 % 12/20/18 06:22 Immature Gran # (Auto) 0.06 K/uL (0.00-0.02) H 12/20/18 06:22 Neut # (Auto) 3.05 K/uL (1.4-6.5) 12/20/18 06:22 Lymph # (Auto) 0.56 K/uL (1.2-3.4) L 12/20/18 06:22 [place] # (Auto) 0.75 K/uL (0.11-0.59) H 12/20/18 06:22 Eos # (Auto) 0.06 K/uL (0-0.5) 12/20/18 06:22 Baso # (Auto) 0.01 K/uL (0-0.2) 12/20/18 06:22 Absolute Nucleated RBC 0.02 K/uL (0-0) H 12/19/18 05:54 Nucleated RBC % (auto) 0.4 % 12/19/18 05:54 Toxic Granulation 1+ 12/20/18 06:22 Dohle Bodies 1+ 12/18/18 05:58 Platelet Estimate Decreased (Normal) 12/16/18 06:15 Polychromasia 1+ 12/20/18 06:22 Hypochromasia Present 12/20/18 06:22 Basophilic Stippling 1+ 12/20/18 06:22 Anisocytosis Present 12/20/18 06:22 Target Cells 1+ 12/19/18 05:54 PT 11.4 Seconds (9.0-12.0) 12/17/18 04:41 INR 1.1 (0.9-1.1) 12/17/18 04:41 Sodium 137 mmol/L (136-145) 12/20/18 06:22 Potassium 3.1 mmol/L (3.5-5.1) L D 12/20/18 06:22 Chloride 105 mmol/L (98-107) 12/20/18 06:22 Carbon Dioxide 23 mmol/L (21-32) 12/20/18 06:22 Anion Gap 9.0 (3-11) 12/20/18 06:22 BUN 13 mg/dl (7-18) 12/20/18 06:22 Creatinine 0.84 mg/dl (0.6-1.2) 12/20/18 06:22 Est Cr Clr Drug Dosing 65.3 ml/min 12/20/18 06:22 Est GFR ( Amer) 90.7 12/20/18 06:22 Est GFR (Non-Af Amer) 78.2 12/20/18 06:22 BUN/Creatinine Ratio 14.9 (10-20) 12/20/18 06:22 Glucose 69 mg/dl (70-99) L 12/20/18 06:22 POC Glucose 97 (70-99) 12/19/18 08:13 Osmolality 264 mOsm/kg (280-300) L 12/16/18 06:15 Lactate 2.9 mmol/L (0.4-2.0) H* 12/16/18 06:15 Calcium 8.3 mg/dl (8.5-10.1) L 12/20/18 06:22 Phosphorus 3.6 mg/dl (2.5-4.9) 12/16/18 06:15 Magnesium 1.9 mg/dl (1.8-2.4) 12/16/18 06:15 Iron 78 mcg/dl (35-150) 12/17/18 04:41 TIBC 146 mcg/dl (250-450) L 12/17/18 04:41 Transferrin 118 mg/dl (200-360) L 12/17/18 04:41 Transferrin % Sat 47 % (15-50) 12/17/18 04:41 Ferritin 823.3 ng/ml (8-388) H 12/17/18 04:41 Total Bilirubin 3.1 mg/dl (0.2-1) H 12/19/18 05:54 AST 118 U/L (15-37) H 12/19/18 05:54 ALT 80 U/L (12-78) H 12/19/18 05:54 Alkaline Phosphatase 212 U/L (45-117) H 12/19/18 05:54 Total Protein 4.9 gm/dl (6.4-8.2) L 12/19/18 05:54 Albumin 2.4 gm/dl (3.4-5.0) L 12/19/18 05:54 Globulin 2.5 gm/dl (2.5-4.0) 12/19/18 05:54 Albumin/Globulin Ratio 0.9 (0.9-2) 12/19/18 05:54 Vitamin B12 > 2000 pg/ml (211-911) H 12/16/18 06:15 Folate > 24.00 ng/ml (>5.38) 12/16/18 06:15 Urine Osmolality 566 mOsm/kg (500-800) 12/16/18 07:40 Nasal Screen MRSA (PCR) Positive (Negative) A 12/16/18 Unknown Salicylates mg/dl (2.8-20) 12/16/18 08:28 Urine Opiates Screen Pos (Neg) H 12/16/18 07:40 U Codeine Confrm GC/MS NEGATIVE NG/ML (CUTOFF=50) 12/16/18 07:40 Ur Morphine (GC/MS) NEGATIVE NG/ML (CUTOFF=50) 12/16/18 07:40 Ur Hydrocodone (GC/MS) NEGATIVE NG/ML (CUTOFF=50) 12/16/18 07:40 Ur Norhydrocodone NEGATIVE NG/ML (CUTOFF=50) 12/16/18 07:40 Ur Noroxycodone 253 NG/ML (CUTOFF=50) A 12/16/18 07:40 Urine Oxycodone (GC/MS) NEGATIVE NG/ML (CUTOFF=50) 12/16/18 07:40 U Oxymorphone GC/MS NEGATIVE NG/ML (CUTOFF=50) 12/16/18 07:40 Ur Methadone, Qual Neg (Neg) 12/16/18 07:40 Ur Hydromorphone (GC/MS) 1150 NG/ML (CUTOFF=50) A 12/16/18 07:40 Acetaminophen ug/ml (10-30) 12/16/18 08:28 Urine Barbiturates Neg (Neg) 12/16/18 07:40 Ur Phencyclidine (PCP) Neg (Neg) 12/16/18 07:40 U Amphetamin/Meth Scrn Neg (Neg) 12/16/18 07:40 MDMA (Ecstasy) Screen Pos (Neg) H 12/16/18 07:40 U Benzodiazepines Scrn Neg (Neg) 12/16/18 07:40 Ur Cocaine Metabolite Neg (Neg) 12/16/18 07:40 U Marijuana (THC) Screen Neg (Neg) 12/16/18 07:40 Hepatitis A IgM Ab NON-REACTIVE (NON-REACTIVE) 12/17/18 11:49 Hep Bs Antigen Neg (Neg) 12/17/18 11:49 Hep B Core IgM Ab NON-REACTIVE (NON-REACTIVE) 12/17/18 11:49 Hepatitis C Ab Screen Neg (Neg) 12/16/18 06:15 Hepatitis C Antibody Neg (Neg) 12/17/18 11:49 Miscellaneous Test REPORT 12/16/18 08:28 Miscellaneous Test 2 REPORT 12/16/18 08:28 Blood Type O Positive 12/17/18 12:39 Antibody Screen NEGATIVE 12/17/18 12:39 Crossmatch See Detail 12/17/18 12:39 XR hip 1V LT w pelvis HISTORY: 53 years-old Female IN PACU - A/P PELVIS and LATERAL HIP left hip total joint arthroplasty COMPARISON: Left hip radiographs of same day at 5:36 PM TECHNIQUE: AP view the pelvis with crosstable lateral view of the left hip FINDINGS: Left hip total joint arthroplasty demonstrates satisfactory alignment. Surgical drainage catheter noted. No acute fracture or opaque foreign body. Expected postsurgical soft tissue swelling and deep tissue air about the left hip with lateral skin ada. Mild osteoarthritis of the right hip. IMPRESSION: Left hip total joint arthroplasty demonstrates satisfactory alignment.
[2018-12-20] MEDS: DOCUSATE SODIUM 100 MG CAP PO SCH ×2 (09:12→19:29)
[2018-12-20] MEDS: ARIPiprazole 5 MG TAB PO SCH (09:12)
[2018-12-20] MEDS: ASPIRIN 325 MG ECTAB PO SCH ×2 (09:12→19:34)
[2018-12-20] MEDS: VENLAFAXINE HCL XR 150 MG CAPXR PO SCH (09:13)
[2018-12-20] MEDS: MULTIVITAMIN TAB PO SCH ×2 (09:14)
[2018-12-20] MEDS: VITAMIN B COMPLEX TAB PO SCH (09:14)
[2018-12-20] MEDS: BuPROPion SR 100 MG TABCR PO SCH ×2 (09:15→20:50)
[2018-12-20] MEDS: NICOTINE 14 MG/24 HR PATCH TD SCH (09:15)
[2018-12-20] MEDS: THIAMINE HCL 100 MG TAB PO SCH ×3 (09:17→19:35)
[2018-12-20] MEDS: METOPROLOL TARTRATE 25 MG TAB PO SCH ×2 (09:19→19:34)
[2018-12-20] MEDS: LIDOCAINE 5% 1 PATCH TD SCH (09:20)
[2018-12-20 13:51] LABS: Albumin Level 2.6 gm/dl (3.4-5.0); BUN Creatinine Ratio 18.2 (10-20); Calcium 8.8 mg/dl (8.5-10.1); Creatinine Clr Calc Pharmacy 79.5 ml/min; Est GFR (African American) 113.6; Potassium 3.3 mmol/L (3.5-5.1)
[2018-12-20 13:56] LABS: Albumin Globulin Ratio 0.9 (0.9-2); Bilirubin,Total 2.5 mg/dl (0.2-1); Globulin 2.8 gm/dl (2.5-4.0); Total Protein 5.4 gm/dl (6.4-8.2)
[2018-12-20] MEDS ORDERED: D5W AND NSS 500 ML IV ONE (15:15)
--- NOTE | 2018-12-20 17:03 | Hospitalist Progress Note ---
Date of Service December 20, 2018 Assessment & Plan (1) Delirium tremens: - Was acutely managed for DTs which is rather resolved; has baseline tremors but demeanor is calm; per family she drinks approx. 2.5 L boxed wine per day - setting of ETOH dependence - Having some acute encephalopathy which could be toxic in setting of ongoing Librium - had 50 mg this AM and will taper to 25 mg tomorrow and likely off this as likely contributing to sedation - Can continue AWSS protocol for monitoring but would limit overuse of Ativan; Continue Thiamine 300 mg TID and Vit D Complex - Tox screen with +opiates (on home Oxycodone) and ecstasy which is likely false positive in setting of psychiatric medications (2) Hip dislocation, left: - S/P L ASHLEIGH on 09/12/18 - with dislocation and underwent closed reduction on 12/17 but repeat XR with continued concern for subluxation and is S/P ORIF on 12/18 - Tramadol PRN; Lidocaine patch; Oxycodone 5 mg PRN - Avoid NSAIDs due to PUD; Avoid Tylenol due to LFTs - PT/OT - appreciate continued assessment/intervention - Orthopedics consulted - appreciate input (3) Anemia: - Acute on chronic issue related to acute blood loss anemia due to surgical losses, dilution, and likely her underlying anemia of chronic disease; is pancytopenic likely in setting of liver dysfunction - Given her known PUD it will be important to monitor for any signs of GI losses - will check stool - Baseline Hgb around 12-13 a few months back but has been trending down around 8-9 range; Transfused 4 units PRBCs this admission and will continue to monitor - Having some reduced urine output but WNL renal function on labs - possibly related to volume losses and will monitor after transfusion as BP improved from yesterday and will monitor renal function - UO is improving slowly and will give a slow 500 cc D5/NSS and will allow oral intake at this time -- Dark urine/tea colored likely in setting of elevated bili (improving) instead of dehydration - Most recent iron studies support anemia of chronic disease (4) Acute alcoholic hepatitis: - LFTs slowly trending down but remain elevated; were WNL in Sep 2018 - Outpatient U/S with chronic hepatocellular disease; liver dysfunction likely cause of tea-colored urine in setting of elevated bili; - Monitor labs daily; Avoid Tylenol - Hepatitis panel nonreactive (5) Lactic acidosis: - Lactic acid level was 6 at outside hospital, trended down (6) Hyponatremia: - Na level 122 at outside hospital in setting of ETOH abuse/potomania. - Improved and will monitor; NaCl BID given but D/C on 12/18 and will monitor with labs (7) Attention deficit disorder: - Holding Adderall while hospitalized. (8) Anxiety: - Venlafaxine 150 mg daily and Buproprion 200 mg BID (9) Depression: - Continue Abilify 5 mg daily; Wellbutrin and Effexor as above (10) Hypertension: - STABLE - Metoprolol 25 mg BID (11) COPD (chronic obstructive pulmonary disease): - No evidence of acute exacerbation - Smokes 1/2 PPD -- Nicotine patch - Continue Albuterol PRN (12) PUD (peptic ulcer disease): - Noted gastric ulcer on EGD in Sep 2018 - non-bleeding and 20 mm in dimension - Protonix 40 mg BID; Avoid NSAIDs - Outpatient F/U EGD (was due in October but delayed due to acute issues) (13) Thrombocytopenia: - Now Pancytopenic but plts are improving; This is likely due to ETOH abuse/hypersplenism; continue to monitor (14) Pulmonary nodule: - 5.2 mm nodule in RUL noted on chest CT in Sep 2018; needs 6 month F/U imaging as outpatient - Encourage tobacco cessation (15) DVT prophylaxis: - ASA BID - will need to be mindful of PUD; will hold heparin due to thrombocytopenia Disposition: PT/OT; patient interested in rehab on D/C Subjective Patient largely sleeping throughout the day. Easily opens eyes and will answer simple questions but falls back to sleep easily. Only complained of a sore neck as she was sleeping oddly in the bed. States her hip feels okay today and breathing feels fine. LFTs are improving and ammonia < 10 given her more drowsy state. Slowly improved UO but still dark tea-colored which is likely due to the high bili/hep panel was normal Will give gentle hydration given limited intake. Does not appear to be actively withdrawing at this time and will reduce Librium as this could be cause of the sedation. Review of Systems Review of Systems: limited due to lethargy Constitutional: + fatigue Respiratory: no dyspnea Cardiovascular: no chest pain Gastrointestinal: + diarrhea/loose stools; no abdominal pain and no nausea Neurologic: + tremor(s) Physical Exam Constitutional: no acute distress ENMT: Ears: no hearing impairment Neck: normal visual inspection and trachea midline Respiratory: normal respiratory effort Auscultation: lungs clear to auscultation bilaterally and + diminished lung sounds Cardiovascular: Rate/Rhythm: regular rate and regular rhythm Gastrointestinal (Abdomen): Inspection/Auscultation: normal bowel sounds Percussion/Palpation: abdomen soft; abdomen nontender Musculoskeletal: Head/Neck/Chest: normocephalic and head atraumatic Extremities: no cyanosis and no clubbing Skin: no rashes, warm and dry Neurologic: moves all extremities (did not move L hip but can move toes; diffuse ecchymosis on dorsum of foot) Psychiatric: Orientation: alert (but easily falls back asleep) Results & Data Vital Signs (Past 12 Hours) Vital Signs Temp Pulse Pulse Resp BP Pulse Ox 12/20/18 16:01 37.2 C 78 20 103/69 95 12/20/18 12:26 36.9 C 88 18 116/72 97 12/20/18 09:18 88 122/84 12/20/18 08:33 36.7 C 78 16 111/77 96
[2018-12-20] MEDS: SENNA 8.6 MG TAB PO SCH (19:29)
[2018-12-20] MEDS: LORazepam 2 MG/4 ML VIAL IV PRN (20:50)
[2018-12-20] MEDS ORDERED: chlordiazePOXIDE HCl 25 MG CAP PO SCH ×2 (21:00)
[2018-12-21 08:14] LABS: Basophils # (auto) 0.02 K/uL (0-0.2); Basophils % (auto) 0.5 %; Eosinophils # (auto) 0.06 K/uL (0-0.5); Eosinophils % (auto) 1.5 %; Hematocrit (blood only) 24.5 % (37-47); Hemoglobin 8.6 g/dL (12.0-16.0); Immature Granulocytes # (auto) 0.09 K/uL (0.00-0.02); Immature Granulocytes % (auto) 2.2 %; Lymphocytes # (auto) 0.72 K/uL (1.2-3.4); Lymphocytes % (auto) 17.6 %; Mean Corpuscular Hgb Conc 35.1 g/dL (32-36); Mean Corpuscular Volume 93.9 fL (80-100); Mean Platelet Volume 8.8 fL (7.4-10.4); Monocytes # (auto) 0.72 K/uL (0.11-0.59); Monocytes % (auto) 17.6 %; Neutrophils # (auto) 2.47 K/uL (1.4-6.5); Neutrophils % (auto) 60.6 %; Platelet Count 132 K/uL (130-400); RDW Coefficient of Variation 24.9 % (11.5-14.5); Red Blood Count 2.61 M/uL (4.2-5.4); White Blood Count 4.08 K/uL (4.8-10.8)
[2018-12-21] MEDS ORDERED: LORazepam 1 MG/2 ML VIAL IV PRN (08:44)
[2018-12-21] MEDS ORDERED: LORazepam 0.5 MG/1 ML VIAL IV PRN (08:44)
[2018-12-21 08:48] LABS: Anisocytosis Present; Polychromasia 1+
[2018-12-21 08:50] LABS: BUN Creatinine Ratio 22.8 (10-20); Calcium 8.4 mg/dl (8.5-10.1); Creatinine Clr Calc Pharmacy 130.7 ml/min; Est GFR (African American) 133.7; Est GFR (Non-African American) 115.4
[2018-12-21] MEDS ORDERED: chlordiazePOXIDE HCl 25 MG CAP PO SCH (09:00)
[2018-12-21] MEDS: METOPROLOL TARTRATE 25 MG TAB PO SCH ×2 (09:07→20:39)
[2018-12-21] MEDS: THIAMINE HCL 100 MG TAB PO SCH ×3 (09:07→20:41)
[2018-12-21] MEDS: MULTIVITAMIN TAB PO SCH ×2 (09:07→09:08)
[2018-12-21] MEDS: ASPIRIN 325 MG ECTAB PO SCH ×2 (09:08→20:39)
[2018-12-21] MEDS: DOCUSATE SODIUM 100 MG CAP PO SCH ×2 (09:08→20:39)
[2018-12-21] MEDS: NICOTINE 14 MG/24 HR PATCH TD SCH (09:34)
[2018-12-21] MEDS: VITAMIN B COMPLEX TAB PO SCH (09:35)
[2018-12-21] MEDS: LIDOCAINE 5% 1 PATCH TD SCH (09:35)
[2018-12-21] MEDS: VENLAFAXINE HCL XR 150 MG CAPXR PO SCH (09:35)
[2018-12-21] MEDS: BuPROPion SR 100 MG TABCR PO SCH ×2 (09:35→20:40)
[2018-12-21] MEDS: ARIPiprazole 5 MG TAB PO SCH (09:35)
[2018-12-21 13:09] LABS: Appearance Urine Clear (Clear); Bacteria Urine Automated Negative (Negative); Blood Urine 3+ (Negative); Color Urine Dark Yellow; Glucose Urine UA Negative (Negative); Ketones Urine 1+ (Negative); Leukocyte Esterase Urine 1+ (Negative); Nitrite Urine Positive (Negative); Protein Urine Trace (Negative); RBC Urine Automated >30 /hpf (0-4); Specific Gravity Urine 1.025 (1.000-1.030); Urobilinogen Urine Negative (Negative); pH Urine 5.5 (4.5-7.5)
[2018-12-21 13:11] LABS: Bilirubin Urine 2+ (Negative); Ictotest Urine Positive (Negative)
[2018-12-21] MEDS: OXYCODONE HCL IR 5 MG TAB (IMMEDIATE RELEASE) PO PRN (13:33)
--- NOTE | 2018-12-21 14:31 | Hospitalist Progress Note ---
Date of Service December 21, 2018 Assessment & Plan (1) Delirium tremens: - Was acutely managed for DTs which is rather resolved; has baseline tremors but demeanor is calm; per family she drinks approx. 2.5 L boxed wine per day - setting of ETOH dependence - Not actively withdrawing at this time - and is several days out from last drink - likely acute encephalopathy related to large benzodiazepine doses -- Stop AWSS protocol and cover with Ativan 0.5 mg IV PRN and stop Librium - Continue Thiamine 300 mg TID and Vit D Complex (2) Hip dislocation, left: - S/P L ASHLEIGH on 09/12/18 - with dislocation and underwent closed reduction on 12/17 but repeat XR with continued concern for subluxation and is S/P ORIF on 12/18 - Tramadol PRN; Lidocaine patch; Oxycodone 5 mg PRN - Avoid NSAIDs due to PUD; Avoid Tylenol due to LFTs - PT/OT - appreciate continued assessment/intervention - Orthopedics consulted - appreciate input (3) Anemia: - Acute on chronic issue related to acute blood loss anemia due to surgical losses, dilution, and likely her underlying anemia of chronic disease; is pancytopenic likely in setting of liver dysfunction - Given her known PUD it will be important to monitor for any signs of GI loss es; Hgb remains low but is stable - Baseline Hgb around 12-13 a few months back but has been trending down around 8-9 range; Transfused 4 units PRBCs this admission and will continue to monitor - Having some reduced urine output but this is improving and doesn't take in much orally as well, has WNL renal function on labs -- Dark urine/tea colored likely in setting of elevated bili (improving) in stead of dehydration - Most recent iron studies support anemia of chronic disease (4) Acute alcoholic hepatitis: - LFTs slowly trending down but remain elevated; were WNL in Sep 2018 - Outpatient U/S with chronic hepatocellular disease; liver dysfunction likely cause of tea-colored urine in setting of elevated bili; - Monitor labs daily; Avoid Tylenol - Hepatitis panel nonreactive (5) Lactic acidosis: - Lactic acid level was 6 at outside hospital, trended down (6) Hyponatremia: - Na level 122 at outside hospital in setting of ETOH abuse/potomania. - Improved/Resolved and will monitor; NaCl BID given but D/C on 12/18 and will monitor with labs (7) Attention deficit disorder: - Holding Adderall while hospitalized. (8) Anxiety: - Venlafaxine 150 mg daily and Buproprion 200 mg BID (9) Depression: - Continue Abilify 5 mg daily; Wellbutrin and Effexor as above (10) Hypertension: - STABLE - Metoprolol 25 mg BID (11) COPD (chronic obstructive pulmonary disease): - No evidence of acute exacerbation - Smokes 1/2 PPD -- Nicotine patch - Continue Albuterol PRN (12) PUD (peptic ulcer disease): - Noted gastric ulcer on EGD in Sep 2018 - non-bleeding and 20 mm in dimension - Protonix 40 mg daily; Avoid NSAIDs - Outpatient F/U EGD (was due in October but delayed due to acute issues) (13) Thrombocytopenia: - Now Pancytopenic but plts are improving; This is likely due to ETOH abuse/hypersplenism; continue to monitor (14) Pulmonary nodule: - 5.2 mm nodule in RUL noted on chest CT in Sep 2018; needs 6 month F/U imaging as outpatient - Encourage tobacco cessation (15) DVT prophylaxis: - ASA BID - will need to be mindful of PUD Disposition: PT/OT; patient interested in rehab on D/C Subjective Pt is sitting up in chair today eating her lunch. Reports her pain is doing well but worse with walking. States she feels very unstable when ambulating. Is largely chairbound at home since her initial surgery. She continues with some mild hand tremors which she feels are a little improved today but does wax/wane in intensity and is chronic for her. She does not appear to be actively withdrawing and will stop AWSS protocol as likely some sedation has more been related to benzodiazepine use. Will stop Librium. UO is improving but continues to be tea colored. She states she had some tea colored urine a few weeks prior to admission but it cleared up. Review of Systems Constitutional: + anorexia; no fever and no chills Ear, Nose, Mouth, Throat: no dry mouth and no sore throat Respiratory: no cough and no dyspnea Cardiovascular: no chest pain and no palpitations Gastrointestinal: + diarrhea/loose stools; no abdominal pain and no nausea Genitourinary: no dysuria Musculoskeletal: + joint pain (L Hip - with ambulation) Neurologic: + unsteadiness and + tremor(s) Physical Exam Constitutional: no acute distress and not ill appearing ENMT: Ears: no hearing impairment Mouth: no oral mucosal abnormality Throat: uvula midline Neck: normal visual inspection and trachea midline Respiratory: normal respiratory effort Auscultation: lungs clear to auscultation bilaterally and + diminished lung sounds Cardiovascular: Rate/Rhythm: regular rate and regular rhythm Gastrointestinal (Abdomen): Inspection/Auscultation: normal bowel sounds Percussion/Palpation: abdomen soft; abdomen nontender Musculoskeletal: Head/Neck/Chest: normocephalic and head atraumatic Extremities: no cyanosis and no clubbing vac placed over incision on L hip without surround erythema/drainage; buttocks with excoriations Skin: no rashes, warm and dry (other then mentioned in MS (buttocks excoriations)) Neurologic: moves all extremities (did not move L hip but can move toes; diffuse ecchymosis on dorsum of foot) Psychiatric: Orientation: alert (but easily falls back asleep) Affect: + flat affect Results & Data Vital Signs (Past 12 Hours) Vital Signs Temp Pulse Resp BP Pulse Ox 12/21/18 07:05 36.7 C 82 20 133/83 96 12/21/18 03:10 36.9 C 81 18 136/89 97
[2018-12-21] MEDS ORDERED: POTASSIUM CHLORIDE 20 MEQ TABCR PO STA (14:37)
[2018-12-21] MEDS ORDERED: LOPERAMIDE HCL 2 MG CAP PO PRN (14:44)
--- NOTE | 2018-12-21 15:20 | Orthopedic Progress Note ---
Date of Service December 21, 2018 Assessment & Plan (1) Hip dislocation, left: POD #3 s/p open reduction left total hip, head and liner exchange, excision of scar -DVT ppx: SCDs, TEDs, ASA BID -WBAT LLE -Anterior hip precautions -PT/OT when medically stable -am labs - hgb 8.6, continue to monitor -PO XR well aligned well fixed prosthesis without fracture/dislocation -Prevena incisional vac changed today Ortho will sign off, please call with questions. Subjective POD #3 s/p Open Reduction Left Total Hip with Femoral Head and Liner Exchange and Revision of Incisional Scar Patient seen sitting up in bed, comfortable, denies complaints, pain well controlled, no acute issues. Review of Systems Review of Systems: All systems reviewed & are unremarkable except as noted in HPI & below Constitutional: as per Subjective / HPI Physical Exam Physical Exam: LLE NVSI +EHL/FHL/TA/GS SILT grossly, +2 DP pulse, compartments soft NT, dressing cdi. Constitutional: WD/WN, vitals as above Results & Data Vital Signs (Past 12 Hours) Vital Signs Temp Pulse Resp BP Pulse Ox 12/21/18 07:05 36.7 C 82 20 133/83 96
[2018-12-21] MEDS: SENNA 8.6 MG TAB PO SCH (20:40)
[2018-12-21] MEDS ORDERED: SODIUM CHLORIDE 0.9% 1000ML 1,000 ML IV SCH (23:00)
[2018-12-22] MEDS: OXYCODONE HCL IR 5 MG TAB (IMMEDIATE RELEASE) PO PRN ×2 (02:32→11:27)
[2018-12-22 06:20] LABS: Hematocrit (blood only) 25.2 % (37-47); Hemoglobin 8.7 g/dL (12.0-16.0); Mean Corpuscular Hgb Conc 34.5 g/dL (32-36); Mean Corpuscular Volume 96.2 fL (80-100); Mean Platelet Volume 8.4 fL (7.4-10.4); Platelet Count 164 K/uL (130-400); RDW Coefficient of Variation 25.9 % (11.5-14.5); RDW Standard Deviation 84.8 fL (36.4-46.3); Red Blood Count 2.62 M/uL (4.2-5.4); White Blood Count 4.21 K/uL (4.8-10.8)
[2018-12-22 06:58] LABS: Albumin Level 2.4 gm/dl (3.4-5.0); BUN Creatinine Ratio 21.8 (10-20); Calcium 8.4 mg/dl (8.5-10.1); Creatinine Clr Calc Pharmacy 140.7 ml/min; Est GFR (Non-African American) 118.2; Potassium 3.2 mmol/L (3.5-5.1)
[2018-12-22 07:06] LABS: Albumin Globulin Ratio 0.8 (0.9-2); Bilirubin,Total 1.9 mg/dl (0.2-1); Globulin 2.9 gm/dl (2.5-4.0); Total Protein 5.3 gm/dl (6.4-8.2)
[2018-12-22] MEDS: DOCUSATE SODIUM 100 MG CAP PO SCH ×2 (09:08→20:28)
[2018-12-22] MEDS: VITAMIN B COMPLEX TAB PO SCH (09:08)
[2018-12-22] MEDS: VENLAFAXINE HCL XR 150 MG CAPXR PO SCH (09:08)
[2018-12-22] MEDS: LIDOCAINE 5% 1 PATCH TD SCH (09:08)
[2018-12-22] MEDS: ASPIRIN 325 MG ECTAB PO SCH ×2 (09:08→20:30)
[2018-12-22] MEDS: BuPROPion SR 100 MG TABCR PO SCH ×2 (09:08→20:30)
[2018-12-22] MEDS: THIAMINE HCL 100 MG TAB PO SCH ×3 (09:09→20:30)
[2018-12-22] MEDS: METOPROLOL TARTRATE 25 MG TAB PO SCH ×2 (09:09→20:30)
[2018-12-22] MEDS: ARIPiprazole 5 MG TAB PO SCH (09:09)
[2018-12-22] MEDS: MULTIVITAMIN TAB PO SCH (09:09)
[2018-12-22] MEDS: PANTOprazole 40 MG TAB PO SCH (09:10)
[2018-12-22] MEDS: NICOTINE 14 MG/24 HR PATCH TD SCH (09:10)
[2018-12-22] MEDS: SODIUM CHLORIDE 0.9% 1000ML 1,000 ML IV SCH (14:20)
[2018-12-22] MEDS: TRAMADOL HCL 50 MG TABLET PO PRN (15:25)
--- NOTE | 2018-12-22 15:48 | Hospitalist Progress Note ---
Date of Service December 22, 2018 Assessment & Plan (1) Delirium tremens: - Was acutely managed for DTs which is rather resolved; has baseline tremors but demeanor is calm; per family she drinks approx. 2.5 L boxed wine per day - setting of ETOH dependence - Not actively withdrawing at this time - and is several days out from last drink - likely acute encephalopathy related to large benzodiazepine doses -- Stop AWSS protocol and cover with Ativan 0.5 mg IV PRN and stop Librium - Continue Thiamine 300 mg TID and Vit D Complex (2) Hip dislocation, left: - S/P L ASHLEIGH on 09/12/18 - with dislocation and underwent closed reduction on 12/17 but repeat XR with continued concern for subluxation and is S/P ORIF on 12/18 - Tramadol PRN; Lidocaine patch; Oxycodone 5 mg PRN - Avoid NSAIDs due to PUD; Avoid Tylenol due to LFTs - PT/OT - appreciate continued assessment/intervention - Orthopedics consulted - appreciate input (3) Anemia: - Acute on chronic issue related to acute blood loss anemia due to surgical losses, dilution, and likely her underlying anemia of chronic disease; is pancytopenic likely in setting of liver dysfunction - Given her known PUD it will be important to monitor for any signs of GI loss es; Hgb remains low but is stable - Baseline Hgb around 12-13 a few months back but has been trending down around 8-9 range; Transfused 4 units PRBCs this admission and will continue to monitor - Having some reduced urine output but this is stable and doesn't take in much orally and was having diarrhea, has WNL renal function on labs and does not overtly look dry - can give some gentle hydration -- Dark urine/tea colored likely in setting of elevated bili (improving) instead of dehydration - Most recent iron studies support anemia of chronic disease (4) Acute alcoholic hepatitis: - LFTs slowly trending down but remain elevated; were WNL in Sep 2018 - Outpatient U/S with chronic hepatocellular disease; liver dysfunction likely cause of tea-colored urine in setting of elevated bili; - Monitor labs daily; Avoid Tylenol - Hepatitis panel nonreactive (5) Lactic acidosis: - Lactic acid level was 6 at outside hospital, trended down (6) Hyponatremia: - Na level 122 at outside hospital in setting of ETOH abuse/potomania. - Improved/Resolved and will monitor; NaCl BID given but D/C on 12/18 and will monitor with labs (7) Attention deficit disorder: - Holding Adderall while hospitalized. (8) Anxiety: - Venlafaxine 150 mg daily and Buproprion 200 mg BID (9) Depression: - Continue Abilify 5 mg daily; Wellbutrin and Effexor as above (10) Hypertension: - STABLE - Metoprolol 25 mg BID (11) COPD (chronic obstructive pulmonary disease): - No evidence of acute exacerbation - Smokes 1/2 PPD -- Nicotine patch - Continue Albuterol PRN (12) PUD (peptic ulcer disease): - Noted gastric ulcer on EGD in Sep 2018 - non-bleeding and 20 mm in dimension - Protonix 40 mg daily; Avoid NSAIDs - Outpatient F/U EGD (was due in October but delayed due to acute issues) (13) Thrombocytopenia: - This is likely due to ETOH abuse/hypersplenism; continue to monitor (14) Pulmonary nodule: - 5.2 mm nodule in RUL noted on chest CT in Sep 2018; needs 6 month F/U imaging as outpatient - Encourage tobacco cessation (15) DVT prophylaxis: - ASA BID - will need to be mindful of PUD Disposition: PT/OT; patient interested in rehab on D/C likely Tuesday? Subjective Patient reports feeling better today. She states her pain is doing well but very unsteady on her feet. Tremors are stable at this time. States she continues with a reduced appetite but this is common for her. Hgb is low but remaining stable. LFTs improving and bili almost normalized. Verbalizes no complaints. Still with tea-colored urine and stable output. Doesn't take much orally in. Diarrhea improving. Review of Systems Constitutional: + anorexia; no fever and no chills Ear, Nose, Mouth, Throat: no dry mouth Respiratory: no cough and no dyspnea Cardiovascular: no chest pain Gastrointestinal: + diarrhea/loose stools; no abdominal pain, no nausea and no constipation Genitourinary: no dysuria Musculoskeletal: + joint pain (L Hip - with ambulation) Neurologic: + unsteadiness and + tremor(s) Physical Exam Constitutional: no acute distress and not ill appearing ENMT: Ears: no hearing impairment Mouth: no oral mucosal abnormality Throat: uvula midline Neck: normal visual inspection and trachea midline Respiratory: normal respiratory effort Auscultation: lungs clear to auscultation bilaterally and + diminished lung sounds Cardiovascular: Rate/Rhythm: regular rate and regular rhythm Gastrointestinal (Abdomen): Inspection/Auscultation: normal bowel sounds Percussion/Palpation: abdomen soft; abdomen nontender Musculoskeletal: Head/Neck/Chest: normocephalic and head atraumatic Extremities: no cyanosis and no clubbing hip incision with wound vac placed; erythema noted to buttocks region Skin: no rashes, warm and dry (other then mentioned in MS (buttocks excoriations)) Neurologic: moves all extremities Psychiatric: Orientation: alert Affect: + flat affect Results & Data Vital Signs (Past 12 Hours) Vital Signs Temp Pulse Pulse Resp BP BP Pulse Ox 12/22/18 15:25 36.4 C L 88 18 144/89 H 98 12/22/18 11:24 36.6 C 91 H 19 118/76 93 12/22/18 08:41 37.0 C 84 19 166/84 H 98
[2018-12-22] MEDS: SENNA 8.6 MG TAB PO SCH (20:28)
[2018-12-23] MEDS: SODIUM CHLORIDE 0.9% 1000ML 1,000 ML IV SCH ×2 (02:30→14:45)
[2018-12-23 08:18] LABS: Basophils # (auto) 0.03 K/uL (0-0.2); Basophils % (auto) 0.8 %; Eosinophils # (auto) 0.04 K/uL (0-0.5); Hematocrit (blood only) 26.8 % (37-47); Hemoglobin 8.9 g/dL (12.0-16.0); Immature Granulocytes # (auto) 0.05 K/uL (0.00-0.02); Immature Granulocytes % (auto) 1.3 %; Lymphocytes # (auto) 0.59 K/uL (1.2-3.4); Lymphocytes % (auto) 14.8 %; Mean Corpuscular Hgb Conc 33.2 g/dL (32-36); Mean Corpuscular Volume 98.9 fL (80-100); Mean Platelet Volume 8.6 fL (7.4-10.4); Monocytes # (auto) 0.54 K/uL (0.11-0.59); Monocytes % (auto) 13.5 %; Neutrophils # (auto) 2.74 K/uL (1.4-6.5); Neutrophils % (auto) 68.6 %; Platelet Count 207 K/uL (130-400); RDW Coefficient of Variation 26.2 % (11.5-14.5); RDW Standard Deviation 89.2 fL (36.4-46.3); Red Blood Count 2.71 M/uL (4.2-5.4); White Blood Count 3.99 K/uL (4.8-10.8)
[2018-12-23 08:45] LABS: Anisocytosis Present; Polychromasia 1+
[2018-12-23] MEDS: ARIPiprazole 5 MG TAB PO SCH (09:07)
[2018-12-23] MEDS: VITAMIN B COMPLEX TAB PO SCH (09:07)
[2018-12-23] MEDS: DOCUSATE SODIUM 100 MG CAP PO SCH ×2 (09:07→21:51)
[2018-12-23] MEDS: THIAMINE HCL 100 MG TAB PO SCH ×3 (09:07→22:26)
[2018-12-23] MEDS: MULTIVITAMIN TAB PO SCH (09:07)
[2018-12-23] MEDS: METOPROLOL TARTRATE 25 MG TAB PO SCH ×2 (09:08→22:26)
[2018-12-23] MEDS: ASPIRIN 325 MG ECTAB PO SCH ×2 (09:08→22:26)
[2018-12-23] MEDS: BuPROPion SR 100 MG TABCR PO SCH ×2 (09:08→22:25)
[2018-12-23] MEDS: VENLAFAXINE HCL XR 150 MG CAPXR PO SCH (09:08)
[2018-12-23] MEDS: PANTOprazole 40 MG TAB PO SCH (09:08)
[2018-12-23] MEDS: LIDOCAINE 5% 1 PATCH TD SCH (09:09)
[2018-12-23] MEDS: NICOTINE 14 MG/24 HR PATCH TD SCH (09:28)
[2018-12-23] MEDS: OXYCODONE HCL IR 5 MG TAB (IMMEDIATE RELEASE) PO PRN ×2 (10:56→19:09)
--- NOTE | 2018-12-23 19:03 | Hospitalist Progress Note ---
Date of Service December 23, 2018 Assessment & Plan (1) Delirium tremens: - Was acutely managed for DTs which is rather resolved; has baseline tremors but demeanor is calm; per family she drinks approx. 2.5 L boxed wine per day - setting of ETOH dependence - Not actively withdrawing at this time - and is several days out from last drink - likely acute encephalopathy intermittently related to large benzodiazepine doses - mentation has remained stable over past 3 days -- Stop AWSS protocol and cover with Ativan 0.5 mg IV PRN and stop Librium - Continue Thiamine 300 mg TID and Vit D Complex (2) Hip dislocation, left: - S/P L ASHLEIGH on 09/12/18 - with dislocation and underwent closed reduction on 12/17 but repeat XR with continued concern for subluxation and is S/P ORIF on 12/18 - Tramadol PRN; Lidocaine patch; Oxycodone 5 mg PRN - Avoid NSAIDs due to PUD; Avoid Tylenol due to LFTs - PT/OT - appreciate continued assessment/intervention - Orthopedics consulted - appreciate input (3) Anemia: - Acute on chronic issue related to acute blood loss anemia due to surgical losses, dilution, and likely her underlying anemia of chronic disease; is pancytopenic likely in setting of liver dysfunction - Given her known PUD it will be important to monitor for any signs of GI losses; Hgb remains low but is stable - Baseline Hgb around 12-13 a few months back but has been trending down around 8-9 range; Transfused 4 units PRBCs this admission and will continue to monitor - Having some reduced urine output but this is stable and relatively matches oral/IV intake, has WNL renal function on labs and does not overtly look dry - can continue gentle hydration today with possible cessation tomorrow -- Dark urine/tea colored likely in setting of elevated bili (improving) instead of dehydration - Most recent iron studies support anemia of chronic disease (4) Acute alcoholic hepatitis: - LFTs slowly trending down but remain elevated; were WNL in Sep 2018 - Outpatient U/S with chronic hepatocellular disease; liver dysfunction likely cause of tea-colored urine in setting of elevated bili - Monitor labs daily; Avoid Tylenol - Hepatitis panel nonreactive (5) Lactic acidosis: - Lactic acid level was 6 at outside hospital, trended down (6) Hyponatremia: - Na level 122 at outside hospital in setting of ETOH abuse/potomania. - Improved/Resolved and will monitor; NaCl BID given but D/C on 12/18 and will monitor with labs (7) Attention deficit disorder: - Holding Adderall while hospitalized. (8) Anxiety: - Venlafaxine 150 mg daily and Buproprion 200 mg BID (9) Depression: - Continue Abilify 5 mg daily; Wellbutrin and Effexor as above (10) Hypertension: - STABLE - Metoprolol 25 mg BID (11) COPD (chronic obstructive pulmonary disease): - No evidence of acute exacerbation - Smokes 1/2 PPD -- Nicotine patch - Continue Albuterol PRN (12) PUD (peptic ulcer disease): - Noted gastric ulcer on EGD in Sep 2018 - non-bleeding and 20 mm in dimension - Protonix 40 mg daily; Avoid NSAIDs - Outpatient F/U EGD (was due in October but delayed due to acute issues) (13) Thrombocytopenia: - This is likely due to ETOH abuse/hypersplenism; continue to monitor (14) Pulmonary nodule: - 5.2 mm nodule in RUL noted on chest CT in Sep 2018; needs 6 month F/U imaging as outpatient - Encourage tobacco cessation (15) DVT prophylaxis: - ASA BID - will need to be mindful of PUD Disposition: PT/OT; patient interested in rehab on D/C likely Tuesday? Subjective Reports feeling good today. Resting in bed during my visit. Verbalizes no complaints and states she was getting ready to take a nap. Talked with daughter over the phone on 12/22 who states oral intake has always been limited and she can be a picky eater Review of Systems Constitutional: + anorexia; no fever and no chills Respiratory: no cough and no dyspnea Cardiovascular: no chest pain Gastrointestinal: no abdominal pain, no nausea, no constipation and no diarrhea/loose stools Genitourinary: no dysuria Musculoskeletal: no joint pain Physical Exam Constitutional: no acute distress and not ill appearing ENMT: Ears: no hearing impairment Neck: normal visual inspection and trachea midline Respiratory: normal respiratory effort Auscultation: lungs clear to auscultation bilaterally and + diminished lung sounds Cardiovascular: Rate/Rhythm: regular rate and regular rhythm Gastrointestinal (Abdomen): Inspection/Auscultation: normal bowel sounds Percussion/Palpation: abdomen soft; abdomen nontender Musculoskeletal: Head/Neck/Chest: normocephalic and head atraumatic Extremities: no cyanosis and no clubbing Neurologic: moves all extremities Psychiatric: Orientation: alert Affect: + flat affect Results & Data Vital Signs (Past 12 Hours) Vital Signs Temp Pulse Pulse Resp BP BP Pulse Ox 12/23/18 15:43 36.5 C 80 18 151/96 H 95 12/23/18 11:49 36.5 C 75 20 150/90 H 95 12/23/18 07:20 36.4 C L 81 14 145/98 H 96
[2018-12-23] MEDS: SENNA 8.6 MG TAB PO SCH (21:53)
[2018-12-24] MEDS: TRAMADOL HCL 50 MG TABLET PO PRN ×3 (00:08→14:08)
[2018-12-24] MEDS: SODIUM CHLORIDE 0.9% 1000ML 1,000 ML IV SCH ×2 (02:06→14:39)
[2018-12-24] MEDS: OXYCODONE HCL IR 5 MG TAB (IMMEDIATE RELEASE) PO PRN (02:08)
[2018-12-24 06:26] LABS: Hematocrit (blood only) 27.7 % (37-47); Hemoglobin 9.2 g/dL (12.0-16.0); Mean Corpuscular Hgb Conc 33.2 g/dL (32-36); Mean Platelet Volume 8.7 fL (7.4-10.4); Platelet Count 234 K/uL (130-400); RDW Coefficient of Variation 26.2 % (11.5-14.5); RDW Standard Deviation 90.1 fL (36.4-46.3); Red Blood Count 2.77 M/uL (4.2-5.4); White Blood Count 4.73 K/uL (4.8-10.8)
[2018-12-24 07:06] LABS: Albumin Level 2.2 gm/dl (3.4-5.0); BUN Creatinine Ratio 9.8 (10-20); Creatinine Clr Calc Pharmacy 171.5 ml/min; Est GFR (African American) 146.3; Est GFR (Non-African American) 126.2; Potassium 2.8 mmol/L (3.5-5.1)
[2018-12-24 07:12] LABS: Albumin Globulin Ratio 0.7 (0.9-2); Bilirubin,Total 1.7 mg/dl (0.2-1); Globulin 3.1 gm/dl (2.5-4.0); Total Protein 5.3 gm/dl (6.4-8.2)
[2018-12-24] MEDS ORDERED: POTASSIUM CHLORIDE 20 MEQ TABCR PO STA (07:57)
[2018-12-24] MEDS: ARIPiprazole 5 MG TAB PO SCH (09:30)
[2018-12-24] MEDS: VITAMIN B COMPLEX TAB PO SCH (09:30)
[2018-12-24] MEDS: MULTIVITAMIN TAB PO SCH (09:30)
[2018-12-24] MEDS: NICOTINE 14 MG/24 HR PATCH TD SCH (09:31)
[2018-12-24] MEDS: PANTOprazole 40 MG TAB PO SCH (09:31)
[2018-12-24] MEDS: BuPROPion SR 100 MG TABCR PO SCH ×2 (09:31→20:03)
[2018-12-24] MEDS: THIAMINE HCL 100 MG TAB PO SCH ×3 (09:31→20:03)
[2018-12-24] MEDS: ASPIRIN 325 MG ECTAB PO SCH ×2 (09:32→20:03)
[2018-12-24] MEDS: DOCUSATE SODIUM 100 MG CAP PO SCH ×2 (09:32→20:03)
[2018-12-24] MEDS: LIDOCAINE 5% 1 PATCH TD SCH (09:32)
[2018-12-24] MEDS: VENLAFAXINE HCL XR 150 MG CAPXR PO SCH (09:32)
[2018-12-24] MEDS: METOPROLOL TARTRATE 25 MG TAB PO SCH ×2 (09:32→20:03)
[2018-12-24] MEDS ORDERED: POTASSIUM CHLORIDE 20 MEQ TABCR PO SCH (12:00)
[2018-12-24] MEDS: SENNA 8.6 MG TAB PO SCH (20:04)
--- NOTE | 2018-12-24 21:12 | Hospitalist Progress Note ---
Date of Service December 24, 2018 Assessment & Plan (1) Delirium tremens: - Was acutely managed for DTs which is rather resolved; has baseline tremors but demeanor is calm; per family she drinks approx. 2.5 L boxed wine per day - setting of ETOH dependence - Not actively withdrawing at this time - and is several days out from last drink - likely acute encephalopathy intermittently related to large benzodiazepine doses - mentation has remained stable over past few days - Continue Thiamine 300 mg TID and Vit D Complex (2) Hip dislocation, left: - S/P L ASHLEIGH on 09/12/18 - with dislocation and underwent closed reduction on 12/17 but repeat XR with continued concern for subluxation and is S/P ORIF on 12/18 - Tramadol PRN; Lidocaine patch; Oxycodone 5 mg PRN - Avoid NSAIDs due to PUD; Avoid Tylenol due to LFTs - PT/OT - appreciate continued assessment/intervention - Orthopedics consulted - appreciate input (3) Anemia: - Acute on chronic issue related to acute blood loss anemia due to surgical losses, dilution, and likely her underlying anemia of chronic disease; is pancytopenic likely in setting of liver dysfunction - Given her known PUD it will be important to monitor for any signs of GI losses; Hgb remains low but is stable - Baseline Hgb around 12-13 a few months back but has been trending down around 8-9 range; Transfused 4 units PRBCs this admission after hgb dropped to 5.8 the day after surgery and will continue to monitor - Most recent iron studies support anemia of chronic disease (4) Acute alcoholic hepatitis: - LFTs slowly trending down but remain elevated; were WNL in Sep 2018 - Outpatient U/S with chronic hepatocellular disease; liver dysfunction likely cause of tea-colored urine in setting of elevated bili - Monitor labs daily; Avoid Tylenol - Hepatitis panel nonreactive (5) Lactic acidosis: - Lactic acid level was 6 at outside hospital, trended down (6) Hyponatremia: - Na level 122 at outside hospital in setting of ETOH abuse/potomania. - Improved/Resolved and will monitor; NaCl BID given but D/C on 12/18 and will monitor with labs (7) Attention deficit disorder: - Holding Adderall while hospitalized. (8) Anxiety: - Venlafaxine 150 mg daily and Buproprion 200 mg BID (9) Depression: - Continue Abilify 5 mg daily; Wellbutrin and Effexor as above (10) Hypertension: - STABLE - Metoprolol 25 mg BID (11) COPD (chronic obstructive pulmonary disease): - No evidence of acute exacerbation - Smokes 1/2 PPD -- Nicotine patch - Continue Albuterol PRN (12) PUD (peptic ulcer disease): - Noted gastric ulcer on EGD in Sep 2018 - non-bleeding and 20 mm in dimension - Protonix 40 mg daily; Avoid NSAIDs - Outpatient F/U EGD (was due in October but delayed due to acute issues) (13) Thrombocytopenia: - This is likely due to ETOH abuse/hypersplenism; continue to monitor (14) Pulmonary nodule: - 5.2 mm nodule in RUL noted on chest CT in Sep 2018; needs 6 month F/U imaging as outpatient - Encourage tobacco cessation (15) DVT prophylaxis: - Utilize Lovenox 40 mg SC daily rather than ASA given PUD and severe anemia requiring transfusion Disposition: PT/OT; patient interested in rehab on D/C likely Tuesday pending referral acceptance Supervising Physician Co-Signing Physician Notes PA Supervision Note: I did not personally see or examine the patient today, but I verified all rader points of EWELINA Encarnacion's assessment and plan with the following exceptions/additions: None Subjective Reports feeling well today and pain under control. Tremors remain but stable. Endorses difficulty drinking due to the tremors. Verbalizes no needs at this time. Review of Systems Constitutional: no fever and no chills Respiratory: no cough and no dyspnea Cardiovascular: no chest pain and no palpitations Gastrointestinal: no abdominal pain, no nausea and no vomiting Genitourinary: no dysuria Musculoskeletal: no joint pain Physical Exam Constitutional: no acute distress and not ill appearing ENMT: Ears: no hearing impairment Respiratory: normal respiratory effort, lungs clear to auscultation Cardiovascular: Rate/Rhythm: regular rate and regular rhythm Gastrointestinal (Abdomen): Inspection/Auscultation: normal bowel sounds Percussion/Palpation: abdomen soft; abdomen nontender Neurologic: moves all extremities Motor/Sensory: + tremor Psychiatric: Orientation: alert Affect: euthymic affect Results & Data Vital Signs (Past 12 Hours) Vital Signs Temp Pulse Resp BP BP Pulse Ox 12/24/18 20:02 83 152/99 H 12/24/18 15:39 36.9 C 80 20 154/100 H 97
[2018-12-25] MEDS: SODIUM CHLORIDE 0.9% 1000ML 1,000 ML IV SCH (02:02)
[2018-12-25 06:21] LABS: Hemoglobin 10.1 g/dL (12.0-16.0); Mean Corpuscular Hgb Conc 33.7 g/dL (32-36); Mean Platelet Volume 8.4 fL (7.4-10.4); Platelet Count 279 K/uL (130-400); RDW Coefficient of Variation 25.8 % (11.5-14.5); White Blood Count 6.26 K/uL (4.8-10.8)
[2018-12-25 07:09] LABS: Alanine Aminotransferase 60 U/L (12-78); Albumin Level 2.3 gm/dl (3.4-5.0); Aspartate Aminotransferase 95 U/L (15-37); BUN Creatinine Ratio 9.7 (10-20); Blood Urea Nitrogen 3 mg/dl (7-18); Calcium 7.8 mg/dl (8.5-10.1); Carbon Dioxide 26 mmol/L (21-32); Chloride 103 mmol/L (98-107); Creatinine Clr Calc Pharmacy 203.3 ml/min; Est GFR (African American) > 150.0; Est GFR (Non-African American) 133.4; Glucose 74 mg/dl (70-99); Potassium 3.2 mmol/L (3.5-5.1); Sodium 138 mmol/L (136-145)
[2018-12-25 07:12] LABS: Albumin Globulin Ratio 0.7 (0.9-2); Alkaline Phosphatase 342 U/L (45-117); Bilirubin,Total 2.1 mg/dl (0.2-1); Globulin 3.2 gm/dl (2.5-4.0); Total Protein 5.5 gm/dl (6.4-8.2)
[2018-12-25] MEDS: ARIPiprazole 5 MG TAB PO SCH (08:44)
[2018-12-25] MEDS: MULTIVITAMIN TAB PO SCH (08:44)
[2018-12-25] MEDS: DOCUSATE SODIUM 100 MG CAP PO SCH ×2 (08:44→20:36)
[2018-12-25] MEDS: PANTOprazole 40 MG TAB PO SCH (08:45)
[2018-12-25] MEDS: VENLAFAXINE HCL XR 150 MG CAPXR PO SCH (08:45)
[2018-12-25] MEDS: BuPROPion SR 100 MG TABCR PO SCH ×2 (08:45→20:36)
[2018-12-25] MEDS: THIAMINE HCL 100 MG TAB PO SCH ×3 (08:45→20:36)
[2018-12-25] MEDS: METOPROLOL TARTRATE 25 MG TAB PO SCH ×2 (08:46→20:36)
[2018-12-25] MEDS: VITAMIN B COMPLEX TAB PO SCH (08:46)
[2018-12-25] MEDS: LIDOCAINE 5% 1 PATCH TD SCH (08:46)
[2018-12-25] MEDS: NICOTINE 14 MG/24 HR PATCH TD SCH (08:46)
[2018-12-25] MEDS: ENOXAPARIN INJ 40 MG/0.4 ML SYR SQ SCH (09:08)
[2018-12-25] MEDS ORDERED: POTASSIUM CHLORIDE 20 MEQ TABCR PO STA (10:02)
[2018-12-25] MEDS: TRAMADOL HCL 50 MG TABLET PO PRN ×2 (10:32→17:28)
--- NOTE | 2018-12-25 17:56 | Hospitalist Progress Note ---
Date of Service December 25, 2018 Assessment & Plan (1) Delirium tremens: - Was acutely managed for DTs which is rather resolved; has baseline tremors but demeanor is calm; per family she drinks approx. 2.5 L boxed wine per day - setting of ETOH dependence - Not actively withdrawing at this time - and is several days out from last drink - likely acute encephalopathy intermittently related to large benzodiazepine doses - mentation has remained stable over past few days - Continue Thiamine 300 mg TID likely can D/C down on Thiamine 200 mg BID (had undetectable thiamine levels previously) and Vit D Complex (2) Hip dislocation, left: - S/P L ASHLEIGH on 09/12/18 - with dislocation and underwent closed reduction on 12/17 but repeat XR with continued concern for subluxation and is S/P ORIF on 12/18 - Tramadol PRN; Lidocaine patch; Oxycodone 5 mg PRN - Avoid NSAIDs due to PUD; Avoid Tylenol due to LFTs - PT/OT - appreciate continued assessment/intervention - Orthopedics consulted - appreciate input (3) Anemia: - Acute on chronic issue related to acute blood loss anemia due to surgical losses, dilution, and likely her underlying anemia of chronic disease - Given her known PUD it will be important to monitor for any signs of GI losses; Hgb remains low but is stable and now beginning to trend up - Baseline Hgb around 12-13 a few months back but has been trending down around 8-9 range; Transfused 4 units PRBCs this admission after hgb dropped to 5.8 the day after surgery and will continue to monitor - Most recent iron studies support anemia of chronic disease (4) Acute alcoholic hepatitis: - LFTs slowly trending down but remain elevated and is possibly her new baseline; were WNL in Sep 2018 - Outpatient U/S with chronic hepatocellular disease; liver dysfunction likely cause of tea-colored urine in setting of elevated bili - Monitor labs; Avoid Tylenol - Hepatitis panel nonreactive (5) Lactic acidosis: - Lactic acid level was 6 at outside hospital, trended down (6) Hyponatremia: - Na level 122 at outside hospital in setting of ETOH abuse/potomania. - Improved/Resolved and will monitor; NaCl BID given but D/C on 12/18 and will monitor with labs (7) Attention deficit disorder: - Holding Adderall while hospitalized. (8) Anxiety: - Venlafaxine 150 mg daily and Buproprion 200 mg BID (9) Depression: - Continue Abilify 5 mg daily; Wellbutrin and Effexor as above (10) Hypertension: - STABLE - Metoprolol 25 mg BID (11) COPD (chronic obstructive pulmonary disease): - No evidence of acute exacerbation - Smokes 1/2 PPD -- Nicotine patch - Continue Albuterol PRN (12) PUD (peptic ulcer disease): - Noted gastric ulcer on EGD in Sep 2018 - non-bleeding and 20 mm in dimension - Protonix 40 mg daily - consider BID dosing given known ulceration and Hgb issues during admission; Avoid NSAIDs - Outpatient F/U EGD (was due in October but delayed due to acute issues) - should have close GI F/U (13) Thrombocytopenia: - This is likely due to ETOH abuse/hypersplenism; continue to monitor but currently resolved (14) Pulmonary nodule: - 5.2 mm nodule in RUL noted on chest CT in Sep 2018; needs 6 month F/U imaging as outpatient - Encourage tobacco cessation (15) DVT prophylaxis: - Utilize Lovenox 40 mg SC daily rather than ASA given PUD and severe anemia requiring transfusion Disposition: PT/OT; Awaiting acceptance to rehab; remove incision wound vac per D/C instructions of 7 days post-operatively and orders in; instructions and discharge completed pending acceptance Supervising Physician Co-Signing Physician Notes PA Supervision Note: I did not personally see or examine the patient today, but I verified all rader points of EWELINA Yost's assessment and plan with the following exceptions/additions: None Subjective Verbalizes no complaints today. States she is trying to drink more fluids but still struggles with her chronic tremors. Plans to see neurology once she is better healed from her hip. Continues to try and drink her Boost supplementation. Awaiting referral approval for rehab. Review of Systems Constitutional: no fever and no chills Respiratory: no cough and no dyspnea Cardiovascular: no chest pain and no edema Gastrointestinal: no abdominal pain, no nausea, no vomiting, no constipation and no diarrhea/loose stools Genitourinary: no dysuria Musculoskeletal: + joint pain (L hip) Integumentary: + sores (buttocks) Neurologic: + unsteadiness and + tremor(s) Physical Exam Constitutional: no acute distress and not ill appearing ENMT: Ears: no hearing impairment Neck: normal visual inspection and trachea midline Respiratory: normal respiratory effort, lungs clear to auscultation Auscultation: + diminished lung sounds Cardiovascular: Rate/Rhythm: regular rate and regular rhythm Gastrointestinal (Abdomen): Inspection/Auscultation: normal bowel sounds Percussion/Palpation: abdomen soft; abdomen nontender Musculoskeletal: Head/Neck/Chest: normocephalic and head atraumatic Extremities: no cyanosis and no clubbing incision wound vac in place with scant drainage in container; surround skin without erythema or discharge Neurologic: moves all extremities Motor/Sensory: + tremor Psychiatric: Orientation: alert Affect: euthymic affect and + flat affect Results & Data Vital Signs (Past 12 Hours) Vital Signs Temp Pulse Resp BP Pulse Ox 12/25/18 15:29 36.4 C L 88 20 109/76 94 12/25/18 06:54 36.8 C 93 H 18 135/90 97
[2018-12-25] MEDS: SENNA 8.6 MG TAB PO SCH (20:36)
[2018-12-26 09:02] LABS: Hemoglobin 9.8 g/dL (12.0-16.0); Mean Corpuscular Hgb Conc 32.7 g/dL (32-36); Mean Platelet Volume 8.5 fL (7.4-10.4); Platelet Count 319 K/uL (130-400); RDW Coefficient of Variation 25.9 % (11.5-14.5); RDW Standard Deviation 90.8 fL (36.4-46.3); Red Blood Count 2.94 M/uL (4.2-5.4); White Blood Count 6.38 K/uL (4.8-10.8)
[2018-12-26] MEDS: ARIPiprazole 5 MG TAB PO SCH (09:14)
[2018-12-26] MEDS: VENLAFAXINE HCL XR 150 MG CAPXR PO SCH (09:15)
[2018-12-26] MEDS: DOCUSATE SODIUM 100 MG CAP PO SCH ×2 (09:15→20:26)
[2018-12-26] MEDS: PANTOprazole 40 MG TAB PO SCH (09:16)
[2018-12-26] MEDS: MULTIVITAMIN TAB PO SCH (09:16)
[2018-12-26] MEDS: NICOTINE 14 MG/24 HR PATCH TD SCH (09:17)
[2018-12-26] MEDS: BuPROPion SR 100 MG TABCR PO SCH ×2 (09:18→20:27)
[2018-12-26] MEDS: VITAMIN B COMPLEX TAB PO SCH (09:18)
[2018-12-26] MEDS: ENOXAPARIN INJ 40 MG/0.4 ML SYR SQ SCH (09:19)
[2018-12-26] MEDS: THIAMINE HCL 100 MG TAB PO SCH ×3 (09:19→20:27)
[2018-12-26] MEDS: LIDOCAINE 5% 1 PATCH TD SCH (09:20)
[2018-12-26 09:24] LABS: Albumin Level 2.2 gm/dl (3.4-5.0); BUN Creatinine Ratio 13.7 (10-20); Creatinine Clr Calc Pharmacy 148.4 ml/min; Est GFR (African American) 139.4; Est GFR (Non-African American) 120.3; Magnesium 1.1 mg/dl (1.8-2.4); Potassium 3.2 mmol/L (3.5-5.1)
[2018-12-26] MEDS: METOPROLOL TARTRATE 25 MG TAB PO SCH ×2 (09:26→20:26)
[2018-12-26 09:27] LABS: Albumin Globulin Ratio 0.7 (0.9-2); Globulin 3.3 gm/dl (2.5-4.0); Total Protein 5.5 gm/dl (6.4-8.2)
[2018-12-26] MEDS ORDERED: POTASSIUM CHLORIDE 20 MEQ TABCR PO STA ×2 (09:38→14:52)
[2018-12-26] MEDS ORDERED: MAGNESIUM OXIDE 400 MG TAB PO SCH (09:45)
[2018-12-26] MEDS: MAGNESIUM SULFATE / D5W 1 GM/100 ML BAG IV SCH ×2 (10:44→12:22)
[2018-12-26] MEDS ORDERED: POTASSIUM CHLORIDE 20 MEQ TABCR PO SCH (12:00)
[2018-12-26 14:29] LABS: BUN Creatinine Ratio 11.9 (10-20); Calcium 8.4 mg/dl (8.5-10.1); Creatinine Clr Calc Pharmacy 127.7 ml/min; Est GFR (African American) 132.7; Est GFR (Non-African American) 114.5; Magnesium 1.9 mg/dl (1.8-2.4); Potassium 3.4 mmol/L (3.5-5.1)
--- NOTE | 2018-12-26 15:56 | Discharge Summary ---
Date of Service December 26, 2018 Admission HPI Per Admitting Provider Patient presents from [facility] as direct admit for dislocation of L hip arthroplasty in the setting of alcohol abuse. She is currently unable to provide coherent history, but through notes and pieces of story from the patient, she has apparently been feeling generally weak for the past 5-7 days. She also c/o L hip pain for a few days, s/p arthroplasty August 2018. She denies any trauma but reports she may have slid out of her chair and bumped it but cannot recall when this happened. She does admit to self-treating her pain with wine, and had some extra (?oxycontin) which she also took in the past week. Her pain is not clearly quantifiable but states it is between 5-10/10. Her last drink was earlier this evening. States she drinks at least 3 glasses of chardonnay per day but more in the past week due to pain. Admission Exam Per Admitting Provider Constitutional: WD/WN, vitals as above well developed and + altered mental status (falls asleep frequently. Notes hallucinations in room.) Eyes: PERRL, conjunctivae normal, anicteric sclerae ENMT: Mouth: + lip abnormality (lesions on upper/lower lip) and + dentition abnormality (edentulous) Breath smells of etoh Neck: normal visual inspection Respiratory: normal respiratory effort, lungs clear to auscultation Cardiovascular: RRR, no murmur, no edema Gastrointestinal (Abdomen): normal bowel sounds, soft, nontender, no hepatosplenomegaly Skin: + wound (various wounds on heels, elbows) Trauma: + contusion (bruising of L foot and L knee) Neurologic: moves all extremities and + confused Speech / Cognition: + abnormal speech Motor/Sensory: + tremor (pt notes this is being worked up by neuro; does improve with alcohol) Cranial Nerves: tongue midline and normal hearing Psychiatric: Orientation: oriented x 3 (gets answers right after several attempts); + not alert (falls asleep easily) Insight: + poor insight Genitourinary: Urine dark, turbid within Reed bag Principal Diagnosis Delirium Tremens, Left Hip Dislocation Discharge Exam General: Appears older than stated age, pleasant and in no acute distress. HEENT: NC/AT; PERRLA with EOMI; [place] conjunctiva, MMM. No erythema of posterior pharynx Neck: Supple and nontender Cardiac: RRR w/o murmurs, gallops or rubs Lungs: CTA bilaterally; No rhonchi, wheezing, or rales Abdomen: Bowel normoactive X 4; Nontender to palpation Extremities: Warm. +1 RLE edema, +1-2 LLE edema. Dressing in place over left hip. Neuro: No focal weakness; alert to person and time, has short moments of confusion. Skin: No rash Discharge Data Allergies Allergy/AdvReac Type Severity Reaction Status Date / Time No Known Allergies Allergy Verified 09/12/18 08:28 Consultations 12/16/18 03:54 Consult Orthopedic Surgery Routine 12/16/18 03:58 Consult Case Management - Discharge Planning Routine 12/16/18 10:04 Consult Kennel Helper Routine 12/19/18 08:00 Consult Case Management - Discharge Planning Routine Procedures Performed Operation Date: 12/17/18 07:00 Actual Procedures p Closed Reduction Left Hip(Left) - Russ Mccoy DO Operation Date: 12/18/18 09:00 Actual Procedures p Open Reduction Left Total Hip with Femoral Head and Liner Exchange and Revision of Incisional Scar(Left) - Nahum Chauhan DO Ordered Studies 12/17/18 07:28 FL fluoroscopy <1hr Routine FL hip LT 2-3V Routine 12/18/18 14:00 FL fluoroscopy <1hr Routine FL hip LT 2-3V Routine 12/18/18 17:41 FL hip LT 1V Stat Hospital Course (1) Delirium tremens: She presented with DTs in setting of altered mental status, increased tremors. Pt. reported drinking 2-3 glasses of wine per day; her daughter stated she drinks 2.5L wine per day. She was upgraded to the ICU for close monitoring. Librium dose was increased per ICU recs; further Ativan doses were held. She received Thiamine 300 mg TID along with banana bag at admission. Vit B complex was also ordered. DTs improved and she was stable for downgrade to med/surg. Librium was tapered. She will continue Vit B complex and Thiamine 200 mg BID at discharge. Pt. will benefit from a neurology work up in the future -- altered mental status during this admission was likely related to DTs and ETOH withdrawal but she may other underlying conditions leading to confusion. Discussed altered mental status with her mother on day of discharge -- may be related to hospital delirium vs. ETOH induced dementia vs. Wernicke's. (2) Hip dislocation, left: S/p L ASHLEIGH on 09/12/18 - with dislocation and underwent closed reduction on 12/17 but repeat XR with continued concern for subluxation and is S/P ORIF on 12/18. Orthopedics continued to follow. Tramadol, Lidocaine patch and Oxycodone were ordered for pain. NSAIDs were avoided due to h/o PUD and Tylenol due to LFTs. PT/OT recommended rehab -- will be discharged to SNF. (3) Anemia: Acute on chronic issue related to acute blood loss anemia due to surgical losses, dilution, and likely her underlying anemia of chronic disease. H/H was monitored in setting of PUD. She received 4 units pRBCs post op as hgb dropped to 5.8. Most recent iron studies suggest anemia of chronic disease. Will need f/u H/H as outpatient. (4) Acute alcoholic hepatitis: LFTs were elevated at admission, likely related to ETOH induced hepatitis. Her previous LFTs in Sep 2018 were WNL. Outpatient U/S with chronic hepatocellular disease. Hepatitis panel was nonreactive. LFTs improved slightly but pt. will likely have chronically elevated LFTs in future. (5) Lactic acidosis: Lactic acid level was 6 at outside hospital, trended down. (6) Hyponatremia: Na level 122 at outside hospital in setting of ETOH abuse/potomania. Improved with NaCl supplementation, now discontinued. (7) Attention deficit disorder: Held Adderall while hospitalized, can resume at SNF. (8) Anxiety: Continued Venlafaxine 150 mg daily and Buproprion 200 mg BID. (9) Depression: Continued Abilify 5 mg daily; Wellbutrin and Effexor as above. (10) Hypertension: Continued Metoprolol 25 mg BID. (11) COPD (chronic obstructive pulmonary disease): No evidence of acute exacerbation. Smokes 1/2 PPD -- Nicotine patch ordered. (12) PUD (peptic ulcer disease): Noted gastric ulcer on EGD in Sep 2018 - non-bleeding and 20 mm in dimension. Protonix 40 mg - increased to BID at discharge. Avoided all NSAIDs. Will need f/u with GI along with EGD in near future. (13) Thrombocytopenia: This is likely due to ETOH abuse/hypersplenism. (14) Pulmonary nodule: 5.2 mm nodule in RUL noted on chest CT in Sep 2018; needs 6 month F/U imaging as outpatient (15) Electrolyte abnormality: Pt. required KCl and Mag supplementation during this admission. Will need to continue KCl 20 mEq PO daily and Mag oxide 400 mg daily at discharge. (16) DVT prophylaxis: Lovenox daily (avoid ASA in setting of PUD) for 1 month course following surgery. Pt. was stable for discharge to SNF on 12/26/18. Total Time Total Time Spent Total Time Spent (In Minutes): >30 minutes Total Time Includes: Examination of the Patient, Discharge Planning, Medication Reconciliation, Communication With Other Providers and Other Discharge Plan Discharge Items Patient Disposition: Transfer [facility] Reason For Visit: DISLOCATED LEFT HIP Discharge Diagnosis: Dislocated Left Hip with ORIF Discharge Goals: Decrease discomfort, Improve function and Increase independence Activity: Resume your previous activity Non-emergency contact: Primary Care Provider Call non-emergency contact if: you have any medication questions, your symptoms worsen and you have a fever Follow-up/Referrals: Edi Hodge DO [Primary Care Provider] - Diet: Regular Addtl Provider Instructions: 1. Left Hip Dislocation: - Underwent L Total Hip in August 2018 then sustained a dislocation with closed reduction on 12/17 but F/U XR with continued concern for subluxation and underwent ORIF on 12/18 - Has incisional wound vac in place to remain for 7 days post-operatively - Can continue Oxycodone 5-10 mg PRN; Avoid Tylenol and NSAIDs due to treatment for acute alcoholic hepatitis and known PUD with large gastric ulceration - Can be full weightbearing 2. Alcohol Withdrawal/Delirium tremens/Acute Alcoholic Hepatitis: - Was acutely managed for DTs, now resolved;; has baseline tremors, now improving; she is disoriented at times -- possibly related to Wernicke's vs. hospital delirium vs. ETOH induced dementia. - Per family, she drinks approx. 2.5 L boxed wine per day - Not actively withdrawing at this time. - Continue Thiamine 200 mg BID and Vit D Complex 3. Anemia:: - Acute on chronic issue related to acute blood loss anemia due to surgical los ses, dilution, and likely her underlying anemia of chronic disease - Transfused 4 units PRBCs this admission after hgb trended down post operatively - Please repeat CBC with platelets in 3-4 days followed by weekly to monitor for GI losses. 4. Acute alcoholic hepatitis: - LFTs slowly trending down; were WNL in Sep 2018 - Outpatient ultrasound with chronic hepatocellular disease - Hepatitis panel nonreactive - May benefit from follow up with her GI specialist (at [facility]) 5. Electrolyte Abnormalities - Na level 122 at outside hospital in setting of ETOH abuse/potomania; now within normal limits. - Mag oxide 400 mg daily due to low levels during this admission. - Potassium 20 mEq PO daily due to low levels during this admission. - Please monitor labs, including BMP and Mag level, in 3-4 days. 6. PUD (peptic ulcer disease): - Noted gastric ulcer on EGD in Sep 2018 - non-bleeding and 20 mm in dimension - Protonix 40 mg BID; Avoid all NSAIDs - Will need outpatient follow up EGD in 2-3 weeks -- please schedule with [facility] GI. 7. Pulmonary nodule: - 5.2 mm nodule in RUL noted on chest CT in Sep 2018; needs 6 month follow up imaging as outpatient ACTIVITY RECOMMENDATIONS: SELF CARE INSTRUCTIONS AFTER REVISION TOTAL HIP REPLACEMENT : Direct Anterior Approach Until the incision and soft tissues around your hip have healed, there is a possibility that the hip prosthesis could dislocate. A. Hip flexion ( Up & Down out of chair or steps ) may be difficult. This is normal. B. Numbness in front of the thigh is also normal for a few weeks. C. Use hand rails when walking on stairs. D. Wear low heeled shoes with non-slip soles. E. Be sure that your floors are free of things that could trip you - throw rugs, electrical cords, small objects. Avoid wet and waxed floors, especially with crutches and canes. F. Try to walk several times a day with rest periods between. G. Continue with all the exercises taught to you in the hospital. Again, make walking a part of your daily routine. H. Adhere to strict anterior hip precautions, no extreme range of motion, extension, twisting, laying on stomach. SPECIAL CARE INSTRUCTIONS: VERY IMPORTANT TO READ AND REVIEW A. You may still be at risk for phlebitis and blood clots. 1. Wear surgical stockings (CHIRAG hose) for 2 weeks after surgery to improve circulation and reduce swelling. 2. High risk patients may be prescribed a stronger blood thinner if necessary. B. You must take antibiotics before having dental work, bladder, bowel and other surgery. Your doctor will provide you with a permanent card to carry describing precautions. C. Call [facility] if you have a fever, redness or swelling around the incision, cloudy drainage from incision, or sudden increase in pain in your hip, not relieved by your regular pain medication. D. Please call the office at if you have any concerns or questions about your operation or recovery. * YOU MAY SHOWER, NO TUB BATHS UNTIL CLEARED BY YOUR DOCTOR. - Keep an extra close eye on the top portion of your incision. Be sure to keep clean & dry. * WEAR CHIRAG HOSE 20 HOURS PER DAY FOR 2 WEEKS. * YOU MAY PROGRESS FROM A WALKER, TO A CANE, TO INDEPENDENT AT YOUR OWN PACE. * MOST PATIENTS WILL HAVE HOME NURSING FOR THERAPY. IF YOU DECIDE TO DO OUTPATIENT PHYSICAL THERAPY, PLEASE SCHEDULE THIS 3 TIMES PER WEEK. *PREVENA incisional vac is a special dressing covering your incision. This dressing provides a sterile dry environment while you are healing. The dressing is to be left in place for 7 days post-operatively. Your home nurse or surgeon will remove. If you develop any redness or blisters or have any questions notify your surgeon immediately. FOLLOW UP VISIT: If appointment is not already scheduled: Please call [facility] to make a follow-up appointment for 2 weeks after your surgery at . Prescriptions: New enoxaparin 40 mg/0.4 mL Syringe 40 mg subcut QAM 21 Days Qty: 8.4 RF: 0 pantoprazole 40 mg Tablet,Delayed Release (Dr/Ec) 40 mg PO BID 30 Days Qty: 60 RF: 0 dextroamphetamine-amphetamine [Adderall] 20 mg Tablet 1 tab PO BID 3 Days Qty: 6 RF: 0 Continued vitamin M35-eemti acid [Foltrate] 0.5-1 mg tablet 1 tab PO DAILY Qty: 60 RF: 0 multivitamin Tablet 1 tab PO QAM RF: 0 venlafaxine [Effexor XR] 150 mg Capsule,Extended Release 24hr 150 mg PO QAM RF: 0 calcium carbonate [Tums] 200 mg calcium (500 mg) Tablet,Chewable 200 mg PO DAILY PRN (Reason: Heartburn) RF: 0 bupropion HCl [Wellbutrin SR] 200 mg Tablet Sustained-Release 12 Hr 400 mg PO QAM RF: 0 aripiprazole [Abilify] 5 mg Tablet 5 mg PO QAM RF: 0 nicotine 14 mg/24 hr Patch 24 Hour 1 patch TRANSDERMAL DAILY RF: 0 albuterol sulfate [Ventolin HFA] 90 mcg/actuation Hfa Aerosol Inhaler 2 puff INHALATION Q6H PRN (Reason: Shortness Of Breath) RF: 0 metoprolol tartrate 25 mg Tablet 25 mg PO BID RF: 0 Changed oxycodone 5 mg Tablet 5 - 10 mg PO Q6H PRN (Reason: pain) 3 Days Qty: 24 RF: 0 thiamine HCl (vitamin B1) 100 mg tablet 200 mg PO BID Qty: 60 RF: 0 Discontinued acetaminophen [Pain Reliever] 500 mg Tablet 1,000 mg PO Q8H PRN (Reason: pain) Qty: 90 RF: 0 Stand-Alone Forms: [facility] Discharge Orders: Discharge Order (Routine); Ordered 12/26/18 Ordered By: Saray Trevizo Skilled Items Patient informed of condition?: Yes DNR: No Discharge Level of Care: Skilled Communicable Disease: Yes Discharge Prognosis: Stable Admission Data Admit Date/Time: 12/16/18 02:28 Attending Provider: Theresa Knight Admit Provider: Wilner Mcmillan Primary Care Provider: Edi Hodge Other Providers: Rodolfo Lima Casey R Service: Surgical Services Other Interventions: Discharge Summary Assessment (RN) Last Done: 12/26/18 16:20 Pending Studies at Discharge: No DC Date/Time DO NOT enter until pt leaves facility: 12/26/18 21:54 Supervising Physician Co-Signing Physician Notes PA Supervision Note: I personally saw and examined the patient with EWELINA Trevizo. I verified all rader points and agree with EWELINA Trevizo with the following exceptions and/or additions: None
[2018-12-26] MEDS: TRAMADOL HCL 50 MG TABLET PO PRN (15:59)
[2018-12-26] MEDS: SENNA 8.6 MG TAB PO SCH (20:27)
== END 2018-12-26 21:54 | DRG 467 ==
LOC: 3N 02:28 → SUATTDRO 02:28 → 2E 06:29 → 1E 10:51 → 2N 12-17 11:19 → 3N 12-18 17:17